=== PATIENT | female | born 1995 | race Caucasian/White ===

== ENCOUNTER 2017-05-20 15:55 | Emergency (ER) | payer BC ==
[~2017-05-20] VITALS: Ht 157.5 cm; Wt 62.6 kg
[2017-05-20] MEDS ORDERED: LATUDA40 MG PO (16:20)
--- NOTE | 2017-05-20 16:20 | Emergency Room Report ---
History of Present Illness Time Seen by MD Luna Presenting Problem in Triage Pt arrived: Presenting Problem: Onset of symptoms date/time:/ or onset unknown for: Treatment Prior to Arrival: DIRECTOR [employer]CH[employer] Provided by: Sepsis Risk Assessment: Temp: B/P: MAP: Pulse: Resp: Recent fever? Clinical Suspician of Infection? Mental Status: Sepsis Risk: Have you (or family members/close friends) recently traveled outside the [place]? If Yes, where/when: Have you had exposure to infectious disease within the past month? TB? Other? Specify: 21 years old white female 6 para 3 a2, last menstrual period was in March 2017, she had 6 positive tests. Today at 1:00 she developed a wide vaginal bleeding followed by lower abdominal cramps. She denies nausea vomiting diarrhea dysuria or hematuria. Fever or chills, has no local doctor then just moved from [facility]. Source patient, RN notes reviewed, family Exam Limitations no limitations ALLERGIES Coded Allergies: diphenhydramine (From BENADRYL) (Intermediate, 05/20/17) Home Medications Reported Medications LURASIDONE HCL (Latuda) 40 MG PO DAILY History Medical History Surgical Hx Previous Surgery? Review of Systems All Other Systems Reviewed and Negative Constitutional no symptoms reported Eyes no symptoms reported ENT no symptoms reported. Respiratory no symptoms reported Cardiovascular no symptoms reported Gastrointestinal no symptoms reported Genitourinary see HPI, abnormal vaginal bleeding. Musculoskeletal no symptoms reported Skin no symptoms reported Psychiatric/Neurological no symptoms reported Physical Exam Vital Signs Vital Signs Date Time Temp Pulse Resp B/P Pulse O2 O2 Flow FiO2 Ox Delivery Rate 05/20 1736 85 20 133/76 99 05/20 1604 98.7 89 20 138/84 100 - WBC >12,000 or <4,000 or 10% bands? 2 or more SIRS Criteria Met? B/P:138/84 MAP:102 Creatinine >2.0? UA output<0.5ml/kg/hr for 2 hrs? Platelet count >100,000? Lactate >2.0mmol/1? INR >1.2 or PTT > than 60 sec? Evidence of Organ Dysfunction? Provider documented clinical suspician of infection? N Sepsis Criteria Count: 1 Sepsis Risk: Low Sepsis Risk General Appearance normal appearance, WD/WN Eye Exam - bilateral eye normal exam, bilateral eye PERRL, bilateral eye EOMI Ear, Nose, Throat hearing grossly normal, normal ENT inspection Neck normal inspection, non-tender, supple, full range of motion Respiratory Status Yes: trachea midline, chest symmetrical, non tender chest. No: respiratory distress. Lung Sounds bilateral: normal breath sounds, lungs clear. Cardiovascular normal exam, regular rate/rhythm, no peripheral edema, no gallop, no JVD, no murmur, no rub, normal peripheral pulses Peripheral Pulses Pulses normal Yes Gastrointestinal normal bowel sounds, normal exam, non tender, soft, no organomegaly Back normal inspection, no CVA tenderness, no vertebral tenderness Extremities non-tender, normal range of motion, normal inspection Pelvic normal external exam, normal internal exam, vv wnl. cx closed uterus enlaged and non tyender. 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 No Results/Orders Laboratory Tests 05/20/17 1635: Urine Color YELLOW, Urine Appearance CLEAR, Urine pH 6.0, Ur Specific Elsa 1.020, Urine Protein NEGATIVE, Urine Ketones NEGATIVE, Urine Blood NEGATIVE, Urine Nitrate NEGATIVE, Urine Bilirubin NEGATIVE, Urine Urobilinogen 0.2, Ur Leukocyte Esterase NEGATIVE, Urine RBC OCC, Urine WBC OCC, Ur Squamous Epith Cells 10-20, Urine Bacteria 1+, Urine Mucus 2+, Urine Glucose NEGATIVE 05/20/17 1630: Sodium 137, Potassium 3.2 L, Chloride 102, Carbon Dioxide 24, BUN 10, Creatinine 0.6, Estimated Creat Clear 148, Estimated GFR (MDRD) 127, Glucose 109 H, Calcium 8.9, Total Bilirubin 0.4, AST 15, ALT 16, Alkaline Phosphatase 54, Total Protein 7.8, Albumin 4.0, Globulin 3.8 H, Albumin/Globulin Ratio 1.1, WBC 8.9, RBC 5.02, Hgb 13.9, Hct 42.9, MCV 85.5, RDW 13.6, Plt Count 236, MPV 7.8, Gran % 66.3, Gran # 5.9, Lymphocytes % 29.1, Monocytes % 3.6, Eosinophils % 0.8, Basophils % 0.2, Lymphocytes # 2.6, Monocytes # 0.3, Eosinophils # 0.1, Basophils # 0.0, PUBS MCHC 32.4, MCH 27.7, Miscellaneous Test NEGATIVE Current Medication Orders Sig/Caity Start time Last Medication Dose Route Stop Time Status Admin Sodium Chloride 10 ML PRN PRN 05/20 1645 AC IV 05/21 1633 Sodium Chloride 1,000 ML .STK-MED ONE 05/20 1631 DC IV Sodium Chloride 1,000 ML .Q1H1M 05/20 1630 DC 05/20 IV 05/20 1730 1634 Sodium Chloride 10 ML PRN PRN 05/20 1630 AC IV 05/21 1622 Orders Procedure Date/time Status RHOGAM SCREEN 05/20 1745 Active IV SALINE LOCK 05/20 1633 Active URINALYSIS/COMPLETE 05/20 162 Complete RH BLOOD TYPE 05/20 1622 Complete CBC WITH AUTO DIFF 05/20 1622 Complete CHEM 12 PROFILE 05/20 1622 Complete US TRANSVAGINAL PREG 05/20 1617 Active Departure Departure Time of Disposition 1619 Disposition DC Home or Self Care(routine) Clinical Impression Primary Impression: Threatened in first trimester Secondary Impressions: History of recurrent , currently in first trimester Condition STABLE Referrals Talon Roque MD Additional Instructions THE PATIENT REMAINED STABLE WITH NO MORE VAGINAL BLEEDING.her Rh was negative and i ordered her rhogam to be given in the ed. VERBAL REPORT OF US BY LOGGING WORKER: THE PATIETNIS MAX 6 WEEKS , NO FHT, BILATERAL BLOOD FLOW TO THE ADENXAE. I DISCUSSED WITH DR ROQUE WHO RECOMMENDED RHOGAM, BED REST, NO SEX OR VAGINAL DOUCHES TO CALL IN AM TO BE SEEN IN THE OFFICE TOMORROW. RETURN TO THE ED IF NEEDED. DR. BLACK Discharge Counseling Counseled pt/family regarding diagnosis, test results, medications/RX, home care, follow up needs Prescriptions Current Visit Scripts Pnv No.95/Ferrous Fum/Folic AC ( Multivitamin Tablet) 1 EACH PO DAILY #90 TAB Ref 3 ED Critical Care Critical Care No If Critical Care minutes are documented, the time involved in the performance of seperately reportable procedures was not counted toward critical care time documented. I directly delivered medical care to this critically ill and/or injured patient. Timely evaluation and treatment was necessary to address the significant organ system(s) dysfunction present in this patient. at 1814
[2017-05-20 16:37] LABS: HEMOGLOBIN 13.9 g/dL (12.2-16.2); LYMPH # 2.6 K/mm3 (0.7-4.5); LYMPH % 29.1 % (10-50.0)
[2017-05-20 16:42] LABS: URINE BILIRUBIN - DIPSTICK NEGATIVE (NEG); URINE BLOOD NEGATIVE (NEG)
[2017-05-20] MEDS ORDERED: PRENATAL MULTI1 EAC5 PO (17:53)
[2017-05-20 19:09] LABS: ABO BLOOD TYPE A; RH BLOOD TYPE NEGATIVE
[2017-05-20 19:21] LABS: RHOGAM LOT # RHOGAM INFORMATION
[2017-05-20 19:32] LABS: RHOGAM RHOGAM RELEASE
--- NOTE | 2017-05-20 20:04 | RADIOLOGY REPORT PS360 ---
US TRANSVAGINAL PREG HISTORY: EARLY BLEEDING Patient Age: 21 years: Female Ordering Physician: Willie Hayward MD TECHNIQUE: Transvaginal pelvic ultrasound COMPARISON :None FINDINGS There is a small intrauterine gestational sac evident. , With yolk sac seen. No pole is identified. No cardiac activity this can be identified as it yet The mean sac size 0.9 cm = less than 5 week ultrasound age. Would certainly anticipate seeing a a pole after 5 weeks . Consider correlation with beta hCG... & consider follow-up study in one to 2 weeks Right ovary 4 cm 2.6 x 2.6 cm Left ovary 2.4 x 1.65 x 1.5 cm. Ovaries appear satisfactory bilaterally with good flow.. Scattered small follicles bilaterally. No fluid in cul-de-sac. IMPRESSION: Intrauterine gestational sac 8-9 mm size. Consistent with less than 5 week sac No pole is evident as of yet but it could be be too early Consider correlation baseline beta-hCG baseline, with follow-up to better determine status of this early if bleeding persists.
[2017-05-20 20:28] VITALS: BP 132/78
--- OUTSIDE RECORDS SUMMARY | 2017-05-20 22:43 | External Medical Summary Rpt ---
Author Author , IRENE Ortiz IRENE Address Unknown Phone [email or web address] Care Team Providers Care Vending Machine Operator Name Role Phone MONCADA HECTOR, MONCADA HECTOR Unavailable Unavailable MONCADA HECTOR, MONCADA HECTOR Unavailable Unavailable SINCLAIR DON, SINCLAIR DON Unavailable Unavailable GONZALEZ AGUILA, Unavailable Unavailable GONZALEZ AGUILA [facility] Unavailable Unavailable PHYSICIANS, [facility] Unavailable Unavailable [facility], Unavailable [facility]available [facility] CAREY ISIDRO, CAREY Unavailable Unavailable ISIDRO CAREY MAR, CAREY Unavailable Unavailable MAR DOWNTON LIS, DOWNTON Unavailable Unavailable LIS TERESA DEB, TERESA Unavailable Unavailable DEB URENA ALL, URENA Unavailable Unavailable ALL GANSHIRT AGUILA, Unavailable Unavailable GANSHIRT AGUILA HARTADRIEL CESPEDES, ELIO Unavailable Unavailable RUBINA HEEB CHR, HEEB CHR Unavailable Unavailable INDEPENDENT Unavailable Unavailable ANESTHESIOLOGIST, INDEPENDENT ANESTHESIOLOGIST KITE JOSE E, KITE JOSE E Unavailable Unavailable OLY SIVAN, OLY SIVAN Unavailable Unavailable LAMBERS DON, LAMBERS Unavailable Unavailable DON LEAL VJ, Unavailable Unavailable LEAL VJ VALLE ISIDRO, VALLE Unavailable Unavailable ISIDRO VALLE ISIDRO, VALLE Unavailable Unavailable ISIDRO BUCKNER, BUCKNER Unavailable Unavailable ARENAS JR FRANCO, ARENAS Unavailable Unavailable JR FRANCO NORA VJ, ONRA Unavailable Unavailable [facility] Unavailable Unavailable LLC, [facility] Unavailable Unavailable LLC, [facility] ABEBA STORY, Unavailable Unavailable ABEBA STORY THEE MAR, THEE Unavailable Unavailable MAR THEE MAR, THEE Unavailable Unavailable MAR DYLAN SARKARMAN Unavailable Unavailable JULIANA HERNANDEZ VJ, HERNANDEZ VJ Unavailable Unavailable HERNANDEZ ALEKSANDAR, HERNANDEZ ALEKSANADR Unavailable Unavailable [facility], Unavailable Unavailable [facility] Unavailable Unavailable FIBERLINE SUPERVISOR ST, [facility] FIBERLINE SUPERVISOR [facility] Unavailable Unavailable [facility] Unavailable Unavailable [place], [facility], Unavailable Unavailable [facility] DEUCE SCHWARZ, Unavailable Unavailable STANFORTH KARISHMA STEINKAMP HECTOR, Unavailable Unavailable STEINKAMP HECTOR STERNEBERG HECTOR, Unavailable Unavailable STERNEBERG HECTOR [email or web address] W, [employer], Unavailable Unavailable [email or web address] [facility], [employer], Unavailable Unavailable [email or web address] [facility] Unavailable Unavailable ME, [facility] KATYA SCO, KATYA SCO Unavailable Unavailable VON HOENE AMA, VON Unavailable Unavailable HOENE AMA DERRICK AMALIA, DERRICK Unavailable Unavailable AMALIA Purpose Continuity of Care Document - 12-25-2011 through 2016 Problems Code Diagnosis DOS Provider Status N912 AMENORRHEA 03-23-2016 UNSPECIFIED [facility] CTR FIBERLINE SUPERVISOR ST D63727 ENCOUNTER 03-23-2016 ROUTINE RONA CHECKING IU MED CTR FIBERLINE SUPERVISOR CONTRACEPT ST DEVICE W49797 ENCOUNTER 03-23-2016 REMOVAL [facility] INTRAUTERIN MED CTR FIBERLINE SUPERVISOR E ST CONTRACEPT DEVICE Z0000 ENCOUNTER 01-19-2016 GEN ADULT [facility] MED EXAM PHYSICIANS W/O ABNORMAL FIND Z975 PRESENCE OF 01-19-2016 [facility] INTRAUTERIN PHYSICIANS E CONTRACEPTI VE DEVICE R079 CHEST PAIN 01-03-2016 UNSPECIFIED [facility] MED CTR FIBERLINE SUPERVISOR ST D77692 OTHER LONG 01-03-2016 TERM [facility] CURRENT MED CTR FIBERLINE SUPERVISOR DRUG ST THERAPY Z8249 FAMILY HX 01-03-2016 ISCHEMIC RONA HRT DZ OTH MED CTR FIBERLINE SUPERVISOR DZ CIRC ST SYSTEM S92587 PERSONAL 01-03-2016 HISTORY OF [facility] NICOTINE MED CTR FIBERLINE SUPERVISOR DEPENDENCE ST N921 EXCESS & 11-25-2015 FREQUENT RONA MENSTRUATIO PHYSICIANS N W/IRREGULAR CYCLE X02392 ENCOUNTER 11-25-2015 ST. INITIAL RONA PRESCRIPTIO GRACE N INJECT CONTRACEPT Z3009 ENCOUNTER 11-22-2015 . OT GENERAL RONA GRACE TRACTOR OPERATOR BATTERY&ADV ICE CONTRACEPT O8612 ENDOMETRITI 11-13-2015 S FOLLOWING RONA DELIVERY PHYSICIANS Z3A39 39 WEEKS 11-13-2015 GESTATION [facility] OF PHYSICIANS A419 SEPSIS 11-12-2015 ST. UNSPECIFIED RONA ORGANISM GRACE D649 ANEMIA 11-12-2015 ST. UNSPECIFIED RONA GRACE N898 OTHER 11-12-2015 ST. SPECIFIED RONA NONINFLAMMA GRACE TORY DISORDERS VAGINA O85 PUERPERAL 11-12-2015 ST. SEPSIS RONA GRACE O9081 ANEMIA OF 11-12-2015 ST. THE RONA PUERPERIUM GRACE O9122 NONPURULENT 11-12-2015 ST. MASTITIS RONA ASSOCIATED GRACE W/PUERPERIU M R69 ILLNESS 11-12-2015 THEE MAR UNSPECIFIED Z392 ENCOUNTER 11-06-2015 ST FOR ROUTINE [facility] CTR FIBERLINE SUPERVISOR FOLLOW-UP ST Z391 ENCNTR FOR 11-04-2015 [facility] LACTATING MOTHER O80 ENCOUNTER 11-02-2015 FOR [facility] FULL-TERM PHYSICIANS UNCOMPLICAT ED DELIVERY Z370 SINGLE LIVE 11-02-2015 RONA PHYSICIANS Z3483 ENC 11-01-2015 ST SUPERVISION RONA OT NORMAL PHYSICIANS 3 TRIMESTER D18451 SUP PREG 10-25-2015 ST W/OTH POOR [facility] REPRODUCTIV MED CTR FIBERLINE SUPERVISOR E/OB HX ST THIRD TRI G98116 OTHER SPEC 10-25-2015 ST [facility] RELATED PHYSICIANS COND 3RD TRIMESTER [id number] MATERNAL 10-25-2015 CARE ANTI-D RONA ANTIBODIES PHYSICIANS THIRD TRI NA/UNS O4700 FALSE LABOR 10-25-2015 ST BEFORE 37 RONA CMPLETE PHYSICIANS WEEKS GEST UNS TRI O471 FALSE LABOR 10-25-2015 ST AT/AFTER RONA 37 PHYSICIANS COMPLETED WEEKS GEST R443 HALLUCINATI 10-25-2015 ST ONS RONA UNSPECIFIED PHYSICIANS R51 HEADACHE 10-25-2015 RONA PHYSICIANS Z36 ENCOUNTER 10-25-2015 FOR [facility] MED CTR FIBERLINE SUPERVISOR SCREENING ST OF MOTHER Z3A37 37 WEEKS 10-25-2015 ST GESTATION RONA OF PHYSICIANS Z3A38 38 WEEKS 10-25-2015 ST GESTATION RONA OF MED CTR FIBERLINE SUPERVISOR ST O9989 OTH DZ & 10-22-2015 ST COND COMP RONA PREG MED CTR FIBERLINE SUPERVISOR CHILDBIRTH ST PUERPERIUM O343993 DECREASED 10-18-2015 ST R[facility] MOVEMENTS MED CTR FIBERLINE SUPERVISOR THIRD ST TRIMESTER NA/UNS Z3A36 36 WEEKS 10-18-2015 ST GESTATION RONA OF MED CTR FIBERLINE SUPERVISOR ST R300 DYSURIA 09-27-2015 ST RONA PHYSICIANS Z3A33 33 WEEKS 09-27-2015 ST GESTATION RONA OF PHYSICIANS B3749 OTHER 09-19-2015 ST UROGENITAL RONA CANDIDIASIS MED CTR FIBERLINE SUPERVISOR ST N939 ABNORMAL 09-19-2015 ST UTERINE & RONA VAGINAL MED CTR FIBERLINE SUPERVISOR BLEEDING ST UNSPECIFIED O4703 FALSE LABOR 09-19-2015 ST BEFORE 37 RONA CMPLETE MED CTR FIBERLINE SUPERVISOR WEEKS GEST ST 3RD TRI H05602 OTH 09-19-2015 ST MATERNAL RONA INF & MED CTR FIBERLINE SUPERVISOR PARASIT DZ ST COMP PREG 3RD TRI B373 CANDIDIASIS 09-12-2015 ST OF VULVA RONA AND VAGINA PHYSICIANS Z3A31 31 WEEKS 09-12-2015 ST GESTATION RONA OF PHYSICIANS Z0371 ENCOUNTER 09-07-2015 ST SUSP PROB RONA AMNIOTIC PHYSICIANS CAV MEMB RULED OUT O0992 SUPERVISION 08-25-2015 ST. HIGH RISK RONA PREG UNS GRACE SECOND TRIMESTER Z3A00 WEEKS OF 08-25-2015 ST. GESTATION RONA OF GRACE NOT SPECIFIED Z3A29 29 WEEKS 08-25-2015 ST GESTATION RONA OF PHYSICIANS D81350 08-22-2015 [facility] LABR >24 HRS FLW RUPT 3RD TRI Z3A28 28 WEEKS 08-22-2015 [facility] OF O6003 08-20-2015 ST LABOR RONA WITHOUT MED CTR FIBERLINE SUPERVISOR DELIVERY ST THIRD TRIMESTER Z86298 OTHER SPEC 08-19-2015 ST R[facility] RELATED MED CTR FIBERLINE SUPERVISOR COND UNS ST TRIMESTER [id number] MATERNAL 08-17-2015 CARE ANTI-D RONA ANTIBODIES MED CTR FIBERLINE SUPERVISOR [address]ND TRI [address] NA/UNS R440 AUDITORY 07-28-2015 ST HALLUCINATI RONA ONS PHYSICIANS R441 VISUAL 07-28-2015 ST HALLUCINATI RONA ONS PHYSICIANS Z3482 ENC 07-28-2015 ST SUPERVISION RONA OTH NORMAL PHYSICIANS 2 TRIMESTER Z3A25 25 WEEKS 07-28-2015 ST GESTATION RONA OF PHYSICIANS V221 SUPERVISION 06-29-2015 ST OF OTHER RONA NORMAL PHYSICIANS V232 06-29-2015 ST WITH RONA HISTORY OF MED CTR FIBERLINE SUPERVISOR ST V220 SUPERVISION 06-08-2015 ST OF NORMAL RONA FIRST PHYSICIANS 08875 OTHER 06-07-2015 ST SPECIFED RONA COMPLICATIO MED CTR FIBERLINE SUPERVISOR N ST ANTEPARTUM 80298 FEVER 06-07-2015 ST UNSPECIFIED RONA MED CTR FIBERLINE SUPER[place]OR ST 58093 UNS 06-03-2015 ST ABNORM MGMT RONA MOTH PHYSICIANS ANTPRTM COND/COMP 45134 MILD 06-02-2015 ST HYPEREMESIS RONA GRAVIDARUM PHYSICIANS UNSPEC EPIS CARE 68917 MILD 06-02-2015 ST HYPEREMESIS RONA GRAVIDARUM MED CTR FIBERLINE SUPERVISOR ANTEPARTUM ST V2889 OTHER 06-02-2015 ST SPECIFIED RONA MED CTR FIBERLINE SUPERVISOR SCREENING [place] 77440 UNSPECIFIED 05-02-2015 ST ANTEPARTUM RONA HEMORRHAGE MED CTR FIBERLINE SUPERVISOR ANTEPARTUM ST V1582 PERS HX 05-02-2015 ST TOBACCO USE RONA PRESENTING MED CTR FIBERLINE SUPERVISOR HAZARDS ST [facility] 1129 CANDIDIASIS 04-27-2015 ST OF RONA UNSPECIFIED PHYSICIANS SITE 462 ACUTE 04-27-2015 ST PHARYNGITIS RONA PHYSICIANS 463 ACUTE 04-27-2015 ST TONSILLITIS RONA PHYSICIANS 7881 DYSURIA 04-27-2015 ST RONA PHYSICIANS V222 04-27-2015 ST STATE, RONA INCIDENTAL PHYSICIANS 6235 LEUKORRHEA 03-30-2015 ST NOT RONA SPECIFIED PHYSICIANS INFECTIVE V7242 03-14-2015 ST EXAMINATION RONA OR TEST MED CTR FIBERLINE SUPERVISOR POSITIVE ST RESULT 6259 UNSPEC 03-12-2015 [facility]ANS W/FEMALE GENITAL ORGANS 52367 OTH 03-06-2015 [facility] VENEREAL DISEASE ANTPRTM COND/COMPL 0549 HERPES 02-28-2015 [facility] WITHOUT PHYSICIANS MENTION OF COMPLICATIO N 6160 CERVICITIS 02-28-2015 [facility] AND EMERGENCY [place] 83430 GENERALIZED 02-23-2015 ST ANXIETY RONA DISORDER PHYSICIANS 62536 UNSPEC 02-08-2015 ST SPONTANEOUS RONA AB WITHOUT PHYSICIANS MENTION COMP 62131 UNSPEC 02-01-2015 [facility] SPONT AB [facility]ERGENC[facility] COMP PHYSICIANS GENITAL TRACT&PELV INF 20959 COMPLETE 01-24-2015 ST. SPONTANEOUS RONA AB COMP GRACE DELAY/EXCES S HEMORR 79993 RHESUS 01-24-2015 ST. ISOIMMUN RONA AFFCT MGMT GRACE MOTH ANTPRTM COND 6260 ABSENCE OF 01-11-2015 ST MENSTRUATIO RONA N MED CTR FIBERLINE SUPERVISOR ST V1589 OTH SPEC 01-07-2015 ST PERS HX RONA PRESENTING MED CTR FIBERLINE SUPERVISOR HAZARDS ST [facility] OTH 5990 URINARY 12-29-2014 TRACT [facility] INFECTION PHYSICIANS SITE NOT SPECIFIED 35505 HEMATURIA 12-29-2014 ST UNSPECIFIED [place] [facility] V741 SCREENING 11-04-2014 EXAMINATION [place] FOR PHYSICIANS PULMONARY TUBERCULOSI S 5589 OTH&UNSPEC 10-26-2014 . NONINFECTIO [facility] BELINDA GASTROENTER ITIS&COLITI S 21457 DIARRHEA 10-26-2014 ST. 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 61388 REFRACTIVE 09-28-2014 VALLE ISIDRO AMBLYOPIA 650 NORMAL 09-02-2014 INDEPENDENT DELIVERY ANESTHESIOL OGIST 90140 DECR 09-02-2014 ST MOVMNTS RONA MGMT MOTH MED CTR ANTPRTM COND/COMP 2859 UNSPECIFIED 09-01-2014 ST ANEMIA [facility] MED CTR FIBERLINE SUPERVISOR ST 86307 MATERNAL 09-01-2014 ST ANEMIA RONA W/DELIVERY MED CTR FIBERLINE SUPERVISOR W/CURRENT ST PPC 10556 DECR 09-01-2014 ST MOVEMENTS RONA AFFECT MGMT MED CTR FIBERLINE SUPERVISOR [place] [address]186 PREMATURE 09-01-2014 ST RUPTURE RONA MEMB PG PHYSICIANS UNSPEC EPIS CARE 26037 PREMATURE 09-01-2014 ST RUPTURE RONA MEMBRANES MED CTR FIBERLINE SUPERVISOR ST DELIVERED 12813 ABN FETL 09-01-2014 ST HRT RONA RATE/RHYTHM MED CTR FIBERLINE SUPERVISOR DELIV W/WO ST ANTPRTM COND 19284 HIGH 09-01-2014 ST VAGINAL [facility] LACERATION MED CTR FIBERLINE SUPERVISOR WITH ST DELIVERY 7823 EDEMA 09-01-2014 ST RONA MED CTR FIBERLINE SUPERVISOR ST V270 OUTCOME OF 09-01-2014 ST DELIVERY RONA SINGLE PHYSICIANS LIVEBORN 34106 OTHER 08-25-2014 ST THREATENED RONA LABOR, PHYSICIANS ANTEPARTUM 97637 RHESUS 08-25-2014 ST ISOIMMUNIZA RONA TION UNSPEC PHYSICIANS EPIS CARE PG V2389 SUPERVISION 08-25-2014 ST OF OTHER RONA HIGH-RISK PHYSICIANS 59393 OTH CURRENT 08-16-2014 ST MAT CONDS RONA CLASSIFIABL MED CTR FIBERLINE SUPERVISOR E ELSW ST ANTPRTM 1121 CANDIDIASIS 07-18-2014 ST OF VULVA RONA AND VAGINA MED CTR FIBERLINE SUPER[place]OR ST 36929 THREATENED 07-18-2014 ST PREMATURE RONA LABOR MED CTR FIBERLINE SUPERVISOR ANTEPARTUM ST 01002 INFECTIONS 07-18-2014 ST OF RONA GENITOURINA MED CTR FIBERLINE SUPERVISOR RY TRACT ST ANTEPARTUM V154 PERS HX 04-13-2014 [facility] AL TRAUMA PRS [facility] 33422 UNSPECIFIED 12-16-2013 ST VAGINITIS RONA AND PHYSICIANS VULVOVAGINI TIS V289 UNSPECIFIED 02-21-2012 ST RONA SCREENING MED CTR FIBERLINE SUPERVISOR ST 64294 THREATENED 01-29-2012 ST PREMATURE RNOA LABOR PHYSICIANS UNSPEC EPIS CARE 11687 PREMATURE 12-25-2011 [facility] MATERNAL OF [place] ANTEPARTUM B96.89 Other specified bacterial agents as the cause of diseases classified elsewhere E66.3 Overweight F41.9 Anxiety disorder, unspecified K04.7 Periapical abscess without sinus N30.91 Cystitis, unspecified with hematuria N71.9 Inflammator y disease of uterus, unspecified N76.0 Acute vaginitis N89.8 Other specified noninflamma tory disorders of vagina N92.6 Irregular menstruatio n, unspecified O20.0 Threatened O46.91 Antepartum hemorrhage, unspecified , first trimester R10.2 Pelvic and perineal pain R11.0 Nausea R40.20 Unspecified coma R40.4 Transient alteration of awareness R63.5 Abnormal weight gain T88.7XXA Unspecified adverse effect of drug or medicament, initial encounter Z11.3 Encounter for screening for infections with a predominant ly sexual mode of transmissio n Z28.3 Underimmuni zation status Z71.1 Person with feared health complaint in whom no diagnosis is made Procedures Procedure DOS Code [place] Per[place] [address] SINCLAIR DON SURG 6 [facility] PATHOLOGY MED CTR GROSS EXAMINATI ON ONLY GONADOTRO [address] PIN 6 RONA RONA CHORIONIC GRACE GRACE QUANTITAT RONNIE LEVONORGE J7298 ST URENA STREL-RLS 6 RONA ALL INTRAUTER PHYSICIAN INE MOOKIE S SYS [address] ROUTINE 6 RONA RONA ECG MED CTR MED CTR W/LEAST FIBERLINE SUPERVISOR ST FIBERLINE SUPERVISOR ST 12 LDS TRCG ONLY W/O I&R BASIC [address] METABOLIC 6 RONA RONA PANEL MED CTR MED CTR CALCIUM FIBERLINE SUPERVISOR ST FIBERLINE SUPERVISOR ST TOTAL COLLECTIO [address] N VENOUS 6 RONA RONA BLOOD MED CTR MED CTR VENIPUNCT FIBERLINE SUPERVISOR ST FIBERLINE SUPERVISOR ST URE RADIOLOGI [address] C EXAM 6 RONA RONA CHEST 2 MED CTR MED CTR VIEWS FIBERLINE SUPERVISOR ST FIBERLINE SUPERVISOR ST FRONTAL&L ATERAL ECG 78950 ST HEEB CHR ROUTINE 6 RONA ECG MED CTR W/LEAST 12 LDS [place] [address] TROPONIN 6 RONA RONA QUANTITAT MED CTR MED CTR RONNIE FIBERLINE SUPERVISOR ST FIBERLINE SUPERVISOR ST BLOOD [address] COUNT 6 RONA RONA COMPLETE MED CTR MED CTR AUTO&AUTO FIBERLINE SUPERVISOR ST FIBERLINE SUPERVISOR ST DIFRNTL WBC COLLECTIO [address] N VENOUS 6 RONA RONA BLOOD GRACE GRACE VENIPUNCT URE THERAPEUT 75456 ST CAREY IC 6 RONA MAR PROPHYLAC TIC/DX PHYSICIAN INJECTION S SUBQ/IM GONADOTRO [address] PIN 6 RONA RONA CHORIONIC GRACE GRACE QUANTITAT RONNIE GONADOTRO [address] PIN 6 RONA RONA CHORIONIC GRACE GRACE QUANTITAT RONNIE COLLECTIO [address] N VENOUS 6 RONA RONA BLOOD GRACE GRACE VENIPUNCT URE INITIAL 94406 [facility] 6 RONA SHEEHAN CARE/DAY 50 PHYSICIAN MINUTES S RADIOLOGI 33877 THEE THEE C EXAM 6 Dec CHEST 2 VIEWS FRONTAL&L ATERAL CRITICAL 71600 [facility] 6 EMERGENCY ILL/INJUR ED PHYSICIAN PATIENT S INIT 30-[address] OUTPATIEN 6 RONA RONA T CLIN MED CTR MED CTR VISIT [facility] ST FIBERLINE SUPERVISOR ST ASSESS & MGMT PT BREAST E0603 PEDIATRIC PEDIATRIC PUMP 6 PRODUCTS [facility] ANY TYPE VAGINAL [address]553 ST GANSHIRT DELIVERY 6 RONA AGUILA ONLY W/POSTPAR PHYSICIAN FERCHO CARE S NEURAXIAL 94771 ANESTHESI KITE JOSE E LABOR 6 A GROUP ANALG/ANE PRACTICE S PLND VAGINAL DELIVERY [address] NONSTRESS 6 RONA RONA TEST MED CTR MED CTR [facility] G[address] [facility] ST OUTPATIEN 6 RONA RONA T CLIN MED CTR MED CTR VISIT [facility] ST FIBERLINE SUPERVISOR ST ASSESS & MGMT PT HOSPITAL G0463 ST ST OUTPATIEN 6 RONA RONA T CLIN MED CTR MED CTR VISIT [facility] ASSESS & [place] [address] NONSTRESS 6 RONA RONA TEST MED CTR MED CTR FIBERLINE SUPERVISOR ST FIB[address] NONSTRESS 6 RONA RONA TEST MED CTR MED [facility] [facility] ST OUTPATIEN 6 RONA RONA T CLIN MED CTR MED CTR VISIT [facility] ST FIBERLINE SUPERVISOR ST ASSESS & MGMT PT SBSQ 96493 ST GANSHIRT OBSERVATI 6 RONA AGUILA ON CARE/DAY PHYSICIAN [address] URENA NONSTRESS 6 RONA ALL TEST PHYSICIAN S [address] NONSTRESS 6 RONA RONA TEST MED CTR MED [facility] G04[address] [facility] ST OUTPATIEN 6 RONA RONA T CLIN MED CTR MED CTR VISIT FIBERLINE SUPERVISOR ST FIBERLINE SUPER[place]OR ST ASSESS & [place] [address] BIOPHYSIC 6 RONA RONA AL MED CTR MED CTR PROFILE FIBERLINE SUPERVISOR ST FIBERLINE SUPERVISOR ST W/O NON-STRES S TESTING IADNA [address] STREPTOCO 5 RONA RONA CCUS MED CTR MED CTR GROUP B FIBERLINE SUPERVISOR ST FIBERLINE SUPERVISOR ST AMPLIFIED PROBE TQ IADNA [address] NEISSERIA 5 RONA RONA MED CTR MED CTR GONORRHOE FIBERLINE SUPERVISOR ST FIBERLINE SUPERVISOR ST AE AMPLIFIED PROBE TQ IADNA [address] CHLAMYDIA 5 RONA RONA MED CTR MED CTR TRACHOMAT FIBERLINE SUPERVISOR ST FIBERLINE SUPERVISOR ST IS AMPLIFIED PROBE TQ CULTURE [address] BACTERIAL 5 RONA RONA MED CTR MED CTR QUANTTATI FIBERLINE SUPERVISOR ST FIBERLINE SUPERVISOR ST VE COLONY COUNT [facility] G0463 ST ST OUTPATIEN 5 RONA RONA T CLIN MED CTR MED CTR VISIT FIBERLINE SUPERVISOR ST FIBERLINE [place] ST ASSESS & [place] [address] NONSTRESS 5 RONA RONA TEST MED CTR MED CTR FIBERLINE SUPERVISOR ST [place] [address] NONSTRESS 5 RONA ROAN TEST MED CTR MED CTR FIBERLINE SUPERVISOR ST FIBERLINE SUPERVISOR ST HOSPITAL G0463 ST ST OUTPATIEN 5 RONA RONA T CLIN MED CTR MED CTR VISIT FIBERLINE SUPERVISOR ST FIBERLINE SUPERVISOR ST ASSESS & MGMT PT GLUCOSE [address] POST 5 RONA RONA GLUCOSE GRACE GRACE DOSE COLLECTIO [address] N VENOUS 5 RONA RONA [place] [address] 5 RONA RONA UTERUS MED CTR MED CTR LIMITED FIBERLINE SUPERVISOR ST FIBERLINE SUPERVISOR ST 1/> FETUSES FERN TEST Q0114 ST OLY SIVAN 5 RONA PHYSICIAN S THERAPEUT [address] IC 5 RONA RONA PROPHYLAC MED CTR MED CTR TIC/DX FIBERLINE SUPERVISOR ST FIBERLINE SUPERVISOR ST INJECTION SUBQ/IM SBSQ 75960 [facility] 5 RONA CARE/DAY 25 PHYSICIAN MINUTES S [address] OLY SIVAN NONSTRESS 5 RONA TEST PHYSICIAN S [address] ST [place] NONSTRESS 5 RONA AMA TEST PHYSICIAN S ANTIBODY [address] TREPONEMA 5 RONA RONA PALLIDUM MED CTR MED CTR FIBERLINE SUPERVISOR ST FIBERLINE SUPERVISOR ST COMPATIBI [address] LITY EACH 5 RONA RONA UNIT MED CTR MED CTR ANTIGLOBU FIBERLINE SUPERVISOR [place] [address] INFUSION 5 RONA RONA HYDRATION MED CTR MED CTR EACH FIBERLINE SUPERVISOR ST FIBER[place] [address] INFUSION 5 RONA RONA THERAPY/P MED CTR MED CTR ROPHYLAXI FIBERLINE SUPERVISOR ST FIBERLINE SUPERVISOR ST S /DX 1ST TO [address] [place] OBSERVATI 5 RONA AMA ON CARE/DAY PHYSICIAN 30 S MINUTES [facility]OSPITAL G0463 [facility] ST OUTPATIEN 5 RONA RONA T CLIN MED CTR MED CTR VISIT FIBERLINE SUPERVISOR ST FIBERLINE SUPERVISOR ST ASSESS & MGMT PT US PREG [address] ST UTERUS 5 RONA RONA REAL TIME MED CTR MED CTR W/IMAGE FIBERLINE SUPERVISOR ST FIBERLINE SUPERVISOR ST DCMTN TRANSVAG THERAPEUT [address] IC 5 RONA RONA PROPHYLAC MED CTR MED CTR TIC/DX FIBERLINE SUPERVISOR ST FIBERLINE SUPER[place] ST INJECTION SUBQ/[place] [address] 5 RONA RONA UTERUS MED CTR MED CTR LIMITED FIBERLINE SUPERVISOR ST FIBERLINE SUPERVISOR ST 1/> FETUSES HOSPITAL G[address] ST ST OUTPATIEN 5 RONA RONA T CLIN MED CTR MED CTR VISIT FIBERLINE SUPERVISOR ST FIBERLINE SUPERVISOR ST ASSESS & MGMT PT IADNA [address] NEISSERIA 5 RONA RONA MED CTR MED CTR GONORRHOE FIBERLINE SUPERVISOR ST FIBERLINE SUPERVISOR ST AE AMPLIFIED PROBE TQ IADNA [address] CHLAMYDIA 5 RONA RONA MED CTR MED CTR TRACHOMAT FIBERLINE SUPERVISOR ST FIBERLINE SUPERVISOR ST IS AMPLIFIED PROBE TQ HOSPITAL G0463 ST ST OUTPATIEN 5 RONA RONA T CLIN MED CTR MED CTR VISIT FIBERLINE SUPERVISOR ST FIBERLINE SUPERVISOR ST ASSESS & [place] [address] NONSTRESS 5 RONA RONA TEST MED CTR MED CTR FIBERLINE SUPERVISOR ST FIBERLINE SUPERVISOR ST THERAPEUT [address] IC 5 RONA RONA PROPHYLAC MED CTR MED CTR TIC/DX FIBERLINE SUPERVISOR ST FIBERLINE SUPERVISOR ST INJECTION [place]Q/[place] P[place] [address] UTERUS 5 RONA RONA REAL TIME MED CTR MED CTR W/IMAGE FIBERLINE SUPERVISOR ST FIBERLINE SUPERVISOR ST DCMTN TRANSVAG CRYSTAL 59843 ST URENA ID LIGHT 5 RONA ALL MICROSCOP Y CARI PHYSICIAN TISS/ANY S FLUID THERAPEUT [address] IC 5 RONA RONA PROPHYLAC MED CTR MED CTR TIC/DX FIBERLINE SUPERVISOR ST FIBERLINE SUPERVISOR ST INJECTION SUBQ/[place] IADNA [address] TRICHOMON 5 RONA RONA MED CTR MED CTR VAGINALIS FIBERLINE SUPERVISOR ST FIBERLINE SUPERVISOR ST [place] T[place] [address] UTERUS 5 RONA RONA AFTER 1ST MED CTR MED CTR TRIMEST FIBERLINE SUPERVISOR ST FIBERLINE SUPERVISOR ST 1/ GESTATION IADNA [address] GARDNEREL 5 RONA RONA LA MED CTR MED CTR VAGINALIS FIBERLINE SUPERVISOR ST FIBERLINE SUPERVISOR ST DIRECT PROBE TQ IADNA [address] CHLAMYDIA 5 RONA RONA MED CTR MED CTR TRACHOMAT FIBERLINE SUPERVISOR ST FIBERLINE SUPERVISOR ST IS AMPLIFIED PROBE TQ IADNA [address] NEISSERIA 5 RONA ROAN MED CTR MED CTR GONORRHOE FIBERLINE SUPERVISOR ST FIBERLINE SUPERVISOR ST AE AMPLIFIED PROBE TQ IADNA [address] ST ST JEREL 5 RONA RONA SPECIES MED CTR MED CTR DIRECT FIBERLINE SUPERVISOR ST FIBERLINE SUPERVISOR ST PROBE TQ SBSQ [address]4076 ST GANSHIRT OBSERVATI 5 RONA AGUILA ON CARE/DAY PHYSICIAN 15 S MINUTES INJECTION [id number] [address] 5 RONA RONA ONDANSETR [facility] MED CTR ON HCL FIBERLINE SUPERVISOR ST FIBERLINE SUPERVISOR ST [place] [address] [place] [address] INFUSION 5 RONA RONA HYDRATION [facility] MED [facility] EACH FIBERLINE SUPERVISOR ST FIBERLINE SUPERVISOR ST ADDITIONA L HOUR COMPREHEN [address] ST [address] SIVE 5 RONA [facility] METABOLIC MED [facility] MED [facility] PANEL FIBERLINE SUPERVISOR ST FIBERLINE SUPERVISOR ST URNLS DIP [address] 5 RONA RONA STICK/TAB MED CTR MED CTR LET RGNT FIBERLINE SUPERVISOR ST FIBERLINE SUPERVISOR ST AUTO W/O MICROSCOP Y IADNA [address] TRICHOMON 5 [facility] MED [facility] VAGINALIS FIBERLINE SUPERVISOR ST FIBERLINE SUPERVISOR ST DIRECT PROBE TQ THER [address] PROPH/DX 5 RONA RONA NJX IV MED CTR MED CTR PUSH FIBERLINE SUPERVISOR ST FIBERLINE SUPERVISOR ST SINGLE/1S T SBST/DRUG IADNA [address] JEREL 5 RONA RONA SPECIES MED CTR MED CTR DIRECT FIBERLINE SUPERVISOR ST FIBERLINE SUPERVISOR ST PROBE TQ IADNA [address] NEISSERIA 5 RONA R[facility] MED CTR GONORRHOE FIBERLINE SUPERVISOR ST FIBERLINE SUPERVISOR ST AE AMPLIFIED PROBE TQ IADNA [address] ST ST CHLAMYDIA 5 RONA RONA MED [facility] MED CTR TRACHOMAT FIBERLINE SUPERVISOR ST FIBERLINE SUPERVISOR ST IS AMPLIFIED PROBE TQ IADNA [address] ST [address] GARDNEREL 5 RONA RONA LA MED CTR MED CTR VAGINALIS FIBERLINE SUPERVISOR ST FIBERLINE SUPERVISOR ST DIRECT PROBE TQ BLOOD [address] COUNT 5 RONA RONA COMPLETE MED CTR MED CTR AUTOMATED FIBERLINE SUPERVISOR ST FIBERLINE SUPERVISOR ST RINGERS J7120 ST ST LACTATE 5 RONA RONA INFUSION MED CTR MED CTR UP TO FIBERLINE SUPERVISOR ST FIBERLINE SUPERVISOR ST [address] 5 RONA RONA STREPTOCO [facility] [place] [address] 5 RONA RONA UTERUS 14 MED CTR MED CTR WK FIBERLINE SUPERVISOR ST FIBERLINE SUPERVISOR ST TRANSABDL GESTAT GONADOTRO 15620 [facility] PIN 5 RONA REA CHORIONIC GRACE GRACE QUANTITAT RONNIE COLLECTIO 49931 [facility] N VENOUS 5 RONA [place] [address] [facility] VJ 5 W, LLC UTERUS 14 WK TRANSABDL GESTAT [place] PREG [address]55 RADIOLOGY KATYA SCO UTERUS 5 REAL TIME ASSOCIATE W/IMAGE S OF NOT DCMTN TRANSVAG GONADOTRO 41162 [facility] PIN 5 RONA REA CHORIONIC MED CTR MED CTR FIBERLINE SUPERVISOR [facility] QUANTITAT RONNIE COLLECTIO 71729 [facility] VENOUS 5 RONA CESPEDES BLOOD VENIPUNCT PHYSICIAN URE S COLLECTIO 27844 [facility] VENOUS 5 RONA REA BLOOD BELINDA BELINDA VENIPUNCT URE URNLS DIP 39987 [facility] 5 RONA REA STICK/TAB BELINDA BELINDA LET REAGENT AUTO MICROSCOP Y GONADOTRO 19220 [facility] PIN 5 RONA REA CHORIONIC BELINDA BELINDA QUANTITAT RONNIE ONDANSETR Q0162 [facility] ON 1 MG 5 RONA REA ORL NOT BELINDA BELINDA EXCEED 48 HR DOSE REG IADNA 04695 [facility] NEISSERIA 5 RONA REA BELINDA BELINDA GONORRHOE AE AMPLIFIED PROBE TQ IADNA 10682 [facility] CHLAMYDIA 5 RONA REA BELINDA BELINDA TRACHOMAT IS AMPLIFIED PROBE TQ IAADIADOO 15362 [place] [address] RONA REA TRICHOMON BELINDA BELINDA VAGINALIS US PREG 05060 [facility] UTERUS 5 RONA REA REAL TIME MED CTR MED CTR W/IMAGE FIBERLINE SUPERVISOR [facility] [place] [address] [facility] 5 RONA REA UTERUS 14 MED CTR MED CTR WK FIBERLINE SUPERVISOR ST FIBERLINE SUPERVISOR ST TRANSABDL GESTAT COLLECTIO [address] N VENOUS 5 RONA RONA BLOOD MED CTR MED CTR VENIPUNCT FIBERLINE SUPERVISOR ST FIBERLINE SUPERVISOR ST URE GONADOTRO [address] PIN 5 RONA RONA CHORIONIC MED CTR MED CTR FIBERLINE SUPERVISOR ST FIBERLINE SUPERVISOR ST QUANTITAT RONNIE IADNA [address] TRICHOMON 5 RONA MERCADOTH MED CTR MED CTR VAGINALIS FIBERLINE SUPERVISOR ST FIBERLINE SUPERVISOR ST DIRECT PROBE TQ IADNA [address] GARDNEREL 5 RONA RONA LA MED CTR MED CTR VAGINALIS FIBERLINE SUPERVISOR ST FIBERLINE SUPERVISOR ST DIRECT PROBE TQ SUSCEPTIB [address] LTY STDY 5 RONA RONA ANTIMICRB MED CTR MED CTR IAL FIBERLINE SUPERVISOR ST FIBERLINE SUPERVISOR ST MICRO/AGA R DILUTJ IADNA [address] CHLAMYDIA 5 RONA RONA MED CTR MED CTR TRACHOMAT FIBERLINE SUPERVISOR ST FIBERLINE SUPERVISOR ST IS AMPLIFIED PROBE TQ CUL BACT [address] ST [address] AEROBIC 5 RONA RONA ADDL MED CTR MED CTR METHS FIBERLINE SUPERVISOR ST FIBERLINE SUPERVISOR ST DEFINITIV E EA ISOL CULTURE [address] BACTERIAL 5 RONA RONA MED CTR MED CTR QUANTTATI FIBERLINE SUPERVISOR ST FIBERLINE SUPERVISOR ST VE COLONY COUNT URINE IADNA 84[address] ST ST JEREL 5 RONA RONA SPECIES MED CTR MED CTR DIRECT FIBERLINE SUPERVISOR ST FIBERLINE SUPERVISOR ST PROBE TQ IADNA [address] NEISSERIA 5 RONA RONA MED CTR MED CTR GONORRHOE FIBERLINE SUPERVISOR ST FIBERLINE SUPERVISOR ST AE AMPLIFIED PROBE TQ URINE 55501 ST STERNEBER 5 RONA G HECTOR TEST VISUAL PHYSICIAN COLOR S CMPRSN METHS SKIN TEST 32586 ST STERNEBER 5 RONA G HECTOR TUBERCULO SIS PHYSICIAN INTRADERM S AL IADNA [address] TRICHOMON 4 RONA MERCADOTH MED CTR MED CTR VAGINALIS FIBERLINE SUPERVISOR ST FIBERLINE SUPERVISOR ST DIRECT PROBE TQ IADNA [address] JEREL 4 RONA REA SPECIES MED CTR MED CTR DIRECT FIBERLINE SUPERVISOR ST FIBERLINE SUPERVISOR ST PROBE TQ IADNA [address] ST [address] GARDNEREL 4 RONA REA LA MED CTR MED CTR VAGINALIS FIBERLINE SUPERVISOR ST FIBERLINE SUPERVISOR ST DIRECT PROBE TQ FRAMES V2020 [facility] PURCHASES 4 1 VISN V2103 [facility] PLANO 4 TO+/-4.00 D SPHER 0.12-2.00 D CYL EA SCRATCH V2760 [facility] RESISTANT 4 COATING PER LENS LENS V2784 [facility] POLYCARBO 4 REMI OR EQUAL ANY INDEX PER LENS 1 VISN V2104 [facility] MURRIETA HECTOR PLANO-+/- 4 4.00D SPHER 2.12-4.00 D CYL EA OPHTH 33662 [facility] 4 ISIDRO FEILX XM&EVAL COMPRHNSV ESTAB PT 1/> FITTING 59735 [facility] SPECTACLE 4 ISIDRO FELIX S XCPT [place]HAK[place] [address] OTHER 4 RONA REA CURRENT MED CTR MED CTR OBSTETRIC FIBERLINE SUPERVISOR ST FIBERLINE SUPERVISOR ST LACERATIO N OTHER [address] MANUALLY 4 RONA REA ASSISTED MED CTR MED CTR DELIVERY FIBERLINE SUPERVISOR ST FIBERLINE SUPERVISOR ST OTHER [address] ARTIFICIA 4 RONA REA L RUPTURE MED CTR MED CTR OF FIBERLINE SUPERVISOR ST FIBERLINE SUPERVISOR ST MEMBRANES NEURAXIAL 36271 INDEPENDE STEINKAMP LABOR 4 NT HECTOR ANALG/ANE ANESTHESI S PLND OLOGIST VAGINAL DELIVERY VAGINAL [address]4983 [facility] DELIVERY 4 RONA ROBERSON W/POSTPAR PHYSICIAN [place] [address] [place] LEAL SURG 4 RONA Z[facility]ALA PATHOLOGY MED CTR GROSS&JOSE E ROSCOPIC EXAM [address] NONSTRESS 4 RONA REA TEST PHYSICIAN PHYSICIAN S S CRYSTAL 77404 [facility] ID LIGHT 4 RONA FELIX MICROSCOP Y CARI PHYSICIAN TISS/ANY S FLUID [address] [facility] NONSTRESS 4 RONA MAR TEST PHYSICIAN S [address] NONSTRESS 4 RONA RONA TEST MED CTR MED CTR FIBERLINE SUPERVISOR ST FIBERLINE SUPERVISOR ST IADNA [address] GARDNEREL 4 RONA RONA LA MED CTR MED CTR VAGINALIS FIBERLINE SUPERVISOR ST FIBERLINE SUPERVISOR ST DIRECT PROBE TQ IADNA [address] JEREL 4 RONA RONA SPECIES MED CTR MED CTR DIRECT FIBERLINE SUPERVISOR ST FIBERLINE SUPERVISOR ST PROBE TQ IADNA [address] TRICHOMON 4 RONA RONA MED CTR MED CTR VAGINALIS FIBERLINE SUPERVISOR ST FIBERLINE SUPERVISOR ST DIRECT PROBE TQ INITIAL 98885 ST URENA OBSERVATI 4 RONA ALL ON CARE/DAY PHYSICIAN 30 S MINUTES URNLS DIP [address] 4 RONA RONA STICK/TAB MED CTR MED CTR LET FIBERLINE SUPERVISOR ST FIBERLINE SUPERVISOR ST REAGENT AUTO MICROSCOP Y [address] ST URENA NONSTRESS 4 RONA ALL TEST PHYSICIAN S [address] NONSTRESS 4 RONA RONA TEST MED CTR MED CTR FIBERLINE SUPERVISOR ST FIBERLINE SUPERVISOR ST IADNA [address] GARDNEREL 4 RONA RONA LA MED CTR MED CTR VAGINALIS FIBERLINE SUPERVISOR ST FIBERLINE SUPERVISOR ST DIRECT PROBE TQ IADNA [address] JEREL 4 RONA RONA SPECIES MED CTR MED CTR DIRECT FIBERLINE SUPERVISOR ST FIBERLINE SUPERVISOR ST PROBE TQ IADNA [address] NEISSERIA 4 RONA RONA MED CTR MED CTR GONORRHOE FIBERLINE SUPERVISOR ST FIBERLINE SUPERVISOR ST AE AMPLIFIED PROBE TQ IADNA [address] ST [address] CHLAMYDIA 4 RONA RONA MED CTR MED CTR TRACHOMAT FIBERLINE SUPERVISOR ST FIBERLINE SUPERVISOR ST IS AMPLIFIED PROBE TQ FTL [address] FIBRONECT 4 RONA RONA IN MED CTR MED CTR CERVICOVA FIBERLINE SUPERVISOR ST FIBERLINE SUPERVISOR ST G SECRETION S SEMI-KELECHI IADNA [address] ST [address] TRICHOMON 4 RONA RONA MED CTR MED CTR VAGINALIS FIBERLINE SUPERVISOR ST FIBERLINE SUPERVISOR ST DIRECT PROBE TQ SBSQ [address]574 ST [facility] OBSERVATI 4 RONA AGUILA ON CARE/DAY PHYSICIAN 15 S MINUTES INJECTION J2790 [address] RHO D IG 4 RONA RONA HUMAN MED CTR MED CTR FULL DOSE FIBERLINE SUPERVISOR ST FIBERLINE SUPERVISOR ST [address] JEREL 4 RONA RONA SPECIES MED CTR MED CTR DIRECT FIBERLINE SUPERVISOR ST FIB[place] [address] 4 RONA RONA UTERUS 14 MED CTR MED CTR WK FIBERLINE SUPERVISOR ST FIBERLINE SUPERVISOR ST TRANSABDL GESTAT VAGINAL [address]6795 ST [facility] DELIVERY 2 RONA DEB ONLY W/POSTPAR PHYSICIAN FERCHO CARE S [address] NONSTRESS 2 RONA RONA TEST MED CTR MED CTR FIBERLINE SUPERVIS[address] [place] [address] [facility] NONSTRESS 2 ORNA AGUILA TEST PHYSICIAN S INITIAL 44468 [facility] INPATIENT 2 MATERNAL DON CONSULT ME NEW/ESTAB PT 55 MIN Encounters Encounter Start End Date Code Location Performer Type Date HOSPITAL ST - OTHER 6 6 RONA MED CTR FIBERLINE SUPERVISOR [facility] OUTPAT[facility] MED CTR T FIBERLINE SUPERVISOR ST EMERGENCY 77210 ST 6 6 RONA DEPARTMEN MED CTR T VISIT FIBERLINE SUPERVISOR [facility] - [facility] RONA [facility] ST - 6 6 RONA OUTPATIEN MED CTR T FIBERLINE SUPERVISOR ST OFFICE [address] [facility] OUTPATIEN 6 6 RONA ISIDRO T VISIT 15 PHYSICIAN MINUTES S OFFICE [address] [facility] OUTPATIEN 6 6 RONA AGUILA T VISIT [address] PHYSIC[address] [facility] - 6 6 RONA OUTPATIEN MED CTR T FIBERLINE SUPERVISOR [facility] ST - 6 6 RONA OUTPATIEN MED CTR T FIBERLINE SUPERVISOR [facility] ST - 6 6 RONA OUTPATIEN MED CTR T FIBERLINE SUPERVISOR ST OFFICE 62784 ST [facility] OUTPATIEN 6 6 RONA ALL T VISIT 15 PHYSICIAN MINUTES [facility] ST - 6 6 RONA OUTPATIEN MED CTR T FIBERLINE SUPERVISOR [facility] ST - OTHER 5 5 RONA MED CTR FIBERLINE SUPERVISOR ST OFFICE [address]8639 [facility] OUTPATIEN 5 5 RONA ISIDRO T VISIT 15 PHYSICIAN MINUTES [facility] ST - OTHER 5 5 RONA MED CTR FIBERLINE SUPERVISOR ST OFFICE [address]321 [facility] OUTPATIEN 5 5 RONA ISIDRO T VISIT 15 PHYSICIAN MINUTES [facility] ST - 5 5 RONA OUTPATIEN MED CTR T [facility] ST OFFICE [address] [facility] OUTPATIEN 5 5 RONA AGUILA T VISIT 15 PHYSICIAN MINUTES [facility] ST - 5 5 RONA OUTPATIEN MED CTR T FIBERLINE SUPERVISOR ST OFFICE [address] [facility] OUTPAT[facility]EN 5 5 RONA AGUILA T VISIT 15 PHYSICIAN MINUTES [facility] ST. - 5 5 RONA OUTPATIEN [facility] OFFICE [address] [facility] OUTPATIEN 5 5 RONA AGUILA T VISIT 15 PHYSICIAN MINUTES [facility] ST - 5 5 RONA OUTPATIEN MED CTR T [facility] ST - 5 5 RONA OUTPATIEN MED CTR T FIBERLINE SUPERVISOR OFFICE [address]708 ST [facility] OUTPATIEN 5 5 RONA ALL T VISIT [address] PH[address] [facility] - 5 5 RONA OUTPATIEN MED CTR T FIBERLINE SUPERVISOR [facility] ST - 5 5 RONA OUTPATIEN MED CTR T FIBERLINE SUPERVISOR OFFICE [address] [facility] OUTPATIEN 5 5 RONA AGUILA T VISIT 15 PHYSICIAN MINUTES [facility] ST - 5 5 RONA OUTPATIEN MED CTR T FIBERLINE SUPERVISOR EMERGENCY 41983 [facility] PERDOMO 5 5 EMERGENCY JULIANA DEPARTMEN T VISIT PHYSICIAN [facility] ST - 5 5 RONA OUTPATIEN MED CTR T [facility] OFFICE [address] [facility] OUTPATIEN 5 5 RONA AGUILA T VISIT [address] PHYSIC[address] [facility] - 5 5 RONA OUTPATIEN MED CTR T FIBERLINE SUPERVISOR OFFICE [address]62 ST OUTPATIEN 5 5 RONA T VISIT MED CTR [address] [facility] OFFICE [address] [facility] RONA AGUILA T VISIT [address] PHYSIC[address] [facility] - 5 5 RONA OUTPATIEN MED CTR T FIBERLINE SUPERVISOR ST OFFICE 07996 ST OUTPATIEN 5 5 RONA T VISIT MED CTR [address] MINUTES OFFICE [address]15 [facility] OUTPATIEN 5 5 RONA ISIDRO T VISIT 15 PHYSICIAN MINUTES EMERGENCY 00572 ST 5 5 RONA DEPARTMEN MED CTR T VISIT FIBERLINE SUPERVISOR [facility] ST - 5 5 RONA OUTPATIEN MED CTR T [facility] OFFICE 79314 [facility] RONA JAC T VISIT [address] PHYSIC[address] [facility] - 5 5 RONA OUTPATIEN MED CTR T [facility] EMERGENCY 13100 [place] [facility] 5 5 EMERGENCY N JEZ DEPARTMEN T VISIT PHYSICIAN HIGH/URGE S NT SEVERITY [facility]PITAL ST. - 5 5 RONA OUTPATIEN [facility] T EMERGENCY 76606 LEN[facility] ARENAS JR 5 5 EMERGENCY FRANCO DEPARTMEN T VISIT PHYSICIAN HIGH/URGE S NT SEVERITY OFFICE 99221 [facility] 5 RONA VJ T VISIT 15 PHYSICIAN MINUTES [facility] ST - 5 5 RONA OUTPATIEN MED CTR T [facility] EMERGENCY [address]2943 ST. 5 5 RONA DEPARTMEN BELINDA T VISIT MODERATE SEVERITY HOSPITAL ST. - 5 5 RONA OUTPATIEN BELINDA T EMERGENCY 03517 LEN[facility] HUERTAS 5 5 EMERGENCY DEPARTMEN T VISIT PHYSICIAN HIGH/URGE S NT SEVERITY EMERGENCY 77221 ST. 5 5 RONA DEPARTMEN GRACE T VISIT HIGH/URGE NT SEVERITY EMERGENCY 85370 [facility] 5 5 EMERGENCY AMALIA VISIT HIGH PHYSICIAN SEVERITY& S [facility]RE[facility] ST. - 5 5 R[facility] - 5 5 RONA OUTPATIEN MED CTR T [facility] - 5 5 RONA OUTPATIEN MED CTR T [facility] - 5 5 RONA OUTPATIEN MED CTR T [facility] OFFICE [address] [facility] OUTPATIEN 5 5 RONA G HECTOR T VISIT 15 PHYSICIAN MINUTES S OFFICE [address]70[address] [facility] OUTPATIEN 5 5 RONA G HECTOR T VISIT 15 PHYSICIAN MINUTES S EMERGENCY [address]3517 ST. 5 5 RONA DEPARTMEN BELINDA T VISIT LOW/MODER SEVERITY EMERGENCY 55544 [facility] 5 5 EMERGENCY KARISHMA DEPARTMEN T VISIT PHYSICIAN HIGH/URGE S NT [facility] ST[facility] - 5 5 [facility] - 4 4 RONA OUTPATIEN MED CTR T [facility] [address] [facility] OUTPATIEN 4 4 RONA RUBINA T VISIT 15 PHYSICIAN MINUTES [facility] ST - 4 4 RONA INPATIENT MED CTR [facility] [address] [facility] OUTPATIEN 4 4 RONA MAR T VISIT 15 PHYSICIAN MINUTES [facility] ST - 4 4 RONA OUTPATIEN MED CTR T [facility] ST - 4 4 RONA OUTPATIEN MED CTR T [facility] [address] [facility] OUTPATIEN 4 4 RONA AGUILA T VISIT 15 PHYSICIAN MINUTES [facility] ST - 4 4 RONA OUTPATIEN MED CTR T [facility] ST - 4 4 RONA OUTPATIEN MED CTR T [facility] - 4 4 RONA OUTPATIEN MED CTR T [facility] - 4 4 RONA OUTPATIEN MED CTR T [facility] - 4 4 RONA OUTPATIEN MED CTR T [facility] - 4 4 RONA OUTPATIEN MED CTR T FIBERLINE SUPERVISOR ST OFFICE 52522 [facility] OUTPATIEN 4 4 RONA LIS T VISIT 15 PHYSICIAN MINUTES S OFFICE 31564 [facility] OUT[facility]IEN 4 4 RONA LIS T VISIT 15 PHYSICIAN MINUTES [facility] ST - 2 2 RONA OUTPATIEN MED CTR T FIBERLINE SUPERVISOR ST OFFICE [address]276 ST OUTPATIEN 2 2 RONA T VISIT MED CTR [address] MINUTES
--- OUTSIDE RECORDS SUMMARY | 2017-05-20 22:43 | External Medical Summary Rpt ---
Author Author , IRENE Ortiz IRENE Address Unknown Phone [email or web address] Care Team Providers Care Master Fire Control Technician Name Role Phone MONCADA HECTOR, MONCADA HECTOR [...] ARENAS Unavailable Unavailable JR FRANCO NORA VJ, NORA Unavailable Unavailable [facility] Unavailable Unavailable LLC, [facility] Unavailable Unavailable LLC, [facility] ABEBA STORY, Unavailable Unavailable ABEBA STORY THEE MAR, THEE Unavailable Unavailable MAR THEE MAR, THEE Unavailable Unavailable MAR DYLAN SARKARMAN Unavailable Unavailable JULIANA HERNANDEZ VJ, HERNANDEZ VJ Unavailable Unavailable HERNANDEZ ALEKSANDAR, HERNANDEZ ALEKSANDAR Unavailable Unavailable [facility], Unavailable Unavailable [facility] Unavailable Unavailable NURSING DIRECTOR ST, [facility] NURSING DIRECT[facility] Unavailable Unavailable [facility]IANS[facility] Un[facility] Unavailable [facility], [facility], Unavailable Unavailable [facility] EDUCE SCHWARZ, Unavailable Unavailable [facility] KARISHMA STEINKAMP HECTOR, Unavailable Unavailable STEINKAMP HECTOR STERNEBERG HECTOR, Unavailable Unavailable STERNEBERG HECTOR Redeem W, Mango, Unavailable Unavailable Redeem W, [employer] Mango, Unavailable Unavailable [facility] Unavailable Unavailable ME, [facility] KATYA SCO, KATYA SCO Unavailable Unavailable VON HOENE AMA, VON Unavailable Unavailable HOENE AMA DERRICK AMALIA, DERRICK Unavailable Unavailable AMALIA Purpose Continuity of Care Document - 12-25-2011 through 2016 Problems Code Diagnosis DOS Provider Status N912 AMENORRHEA 03-23-2016 UNSPECIFIED [facility] NURSING DIRECTOR ST [id number] ENCOUNTER 03-23-2016 ROUTINE R[facility] CHECKING IU MED CTR NURSING DIRECTOR CONTRACEPT ST DEVICE N27176 ENCOUNTER 03-23-2016 REMOVAL [facility] INTRAUTERIN MED CTR NURSING DIRECTOR E ST CONTRACEPT DEVICE Z0000 ENCOUNTER 01-19-2016 GEN ADULT [facility] MED EXAM PHYSICIANS W/O ABNORMAL FIND Z975 PRESENCE OF 01-19-2016 [facility] INTRAUTERIN PHYSICIANS E CONTRACEPTI VE DEVICE R079 CHEST PAIN 01-03-2016 UNSPECIFIED [facility] NURSING DIRECTOR ST V17216 OTHER LONG 01-03-2016 TERM [facility] CURRENT MED CTR NURSING DIRECTOR DRUG ST THERAPY Z8249 FAMILY HX 01-03-2016 ISCHEMIC RONA HRT DZ OTH MED CTR NURSING DIRECTOR DZ CIRC ST SYSTEM D20527 PERSONAL 01-03-2016 HISTORY OF [facility] NICOTINE MED CTR NURSING DIRECTOR DEPENDENCE ST N921 EXCESS & 11-25-2015 FREQUENT RONA MENSTRUATIO PHYSICIANS N W/IRREGULAR CYCLE G53630 ENCOUNTER 11-25-2015 ST. INITIAL RONA PRESCRIPTIO GRACE N INJECT CONTRACEPT Z3009 ENCOUNTER 11-22-2015 . OT GENERAL RONA GRACE MANAGER MATERIAL&ADV ICE CONTRACEPT O8612 ENDOMETRITI 11-13-2015 S FOLLOWING [...] 11-06-2015 ST FOR ROUTINE [facility] NURSING DIRECTOR FOLLOW-UP ST Z391 ENCNTR FOR 11-04-2015 [facility] LACTATING MOTHER O80 ENCOUNTER 11-02-2015 FOR [facility] FULL-TERM PHYSICIANS UNCOMPLICAT ED DELIVERY Z370 SINGLE LIVE 11-02-2015 RONA PHYSICIANS Z3483 ENC 11-01-2015 ST SUPERVISION RONA OT NORMAL PHYSICIANS 3 TRIMESTER O65149 SUP PREG 10-25-2015 ST W/OTH POOR [facility] REPRODUCTIV MED CTR NURSING DIRECTOR E/OB HX ST THIRD TRI F40861 OTHER SPEC 10-25-2015 ST [facility] RELATED PHYSICIANS COND 3RD TRIMESTER [id number] MATERNAL 10-25-2015 CARE ANTI-D [facility] ANTIBODIES PHYSICIANS THIRD TRI NA/UNS O4700 FALSE LABOR 10-25-2015 ST BEFORE 37 RONA CMPLETE PHYSICIANS WEEKS GEST UNS TRI O471 FALSE LABOR 10-25-2015 ST AT/AFTER RONA 37 PHYSICIANS COMPLETED WEEKS GEST R443 HALLUCINATI 10-25-2015 ST ONS RONA UNSPECIFIED PHYSICIANS R51 HEADACHE 10-25-2015 RONA PHYSICIANS Z36 ENCOUNTER 10-25-2015 FOR [facility] NURSING DIRECTOR SCREENING ST OF MOTHER Z3A37 37 WEEKS 10-25-2015 ST GESTATION RONA OF PHYSICIANS Z3A38 38 WEEKS 10-25-2015 ST GESTATION RONA OF MED CTR NURSING DIRECTOR ST O9989 OTH DZ & 10-22-2015 ST COND COMP R[facility] PREG MED CTR NURSING DIRECTOR [facility] ST PUERPERIUM B712338 DECREASED 10-18-2015 ST [facility] MOVEMENTS MED CTR NURSING DIRECTOR THIRD ST TRIMESTER NA/UNS Z3A36 36 WEEKS 10-18-2015 ST GESTATION RONA OF MED CTR NURSING DIRECTOR ST R300 DYSURIA 09-27-2015 ST RONA PHYSICIANS Z3A33 33 WEEKS 09-27-2015 ST GESTATION RONA OF PHYSICIANS B3749 OTHER 09-19-2015 ST UROGENITAL [facility] CANDIDIASIS MED CTR NURSING DIRECTOR ST N939 ABNORMAL 09-19-2015 ST UTERINE & [facility] VAGINAL MED CTR NURSING DIRECTOR BLEEDING ST UNSPECIFIED O4703 FALSE LABOR 09-19-2015 ST BEFORE 37 RONA CMPLETE MED CTR NURSING DIRECTOR WEEKS GEST ST 3RD TRI W42123 OTH 09-19-2015 ST MATERNAL RONA INF & MED CTR NURSING DIRECTOR PARASIT DZ ST COMP PREG 3RD TRI [...] WEEKS 08-25-2015 ST GESTATION RONA OF PHYSICIANS K98818 08-22-2015 [facility] LABR >24 HRS FLW RUPT 3RD TRI Z3A28 28 WEEKS 08-22-2015 [facility] OF O6003 08-20-2015 ST LABOR R[facility] WITHOUT MED CTR NURSING DIRECTOR DELIVERY ST THIRD TRIMESTER I74278 OTHER SPEC 08-19-2015 ST [facility] RELATED MED CTR NURSING DIRECTOR COND UNS ST TRIMESTER [id number] MATERNAL 08-17-2015 CARE ANTI-D [facility] ANTIBODIES MED CTR NURSING DIRECTOR [address]ND [address] NA/UNS R440 AUDITORY 07-28-2015 ST HALLUCINATI RONA ONS PHYSICIANS R441 VISUAL 07-28-2015 ST HALLUCINATI RONA ONS PHYSICIANS Z3482 ENC 07-28-2015 ST SUPERVISION RONA OTH NORMAL PHYSICIANS 2 TRIMESTER Z3A25 25 WEEKS 07-28-2015 ST GESTATION RONA OF PHYSICIANS V221 SUPERVISION 06-29-2015 ST OF OTHER RONA NORMAL PHYSICIANS V232 06-29-2015 ST WITH RONA HISTORY OF MED CTR NURSING DIRECTOR ST V220 SUPERVISION 06-08-2015 ST OF NORMAL RONA FIRST PHYSICIANS 34265 OTHER 06-07-2015 ST SPECIFED [facility] COMPLICATIO MED CTR NURSING DIRECTOR N ST ANTEPARTUM 82271 FEVER 06-07-2015 ST UNSPECIFIED [facility] NURSING [place]OR ST 53452 UNS 06-03-2015 ST ABNORM MGMT RONA MOTH PHYSICIANS ANTPRTM COND/COMP 39507 MILD 06-02-2015 ST HYPEREMESIS RONA GRAVIDARUM PHYSICIANS UNSPEC EPIS CARE 90590 MILD 06-02-2015 ST HYPEREMESIS [facility]ONA GRAVIDARUM MED CTR NURSING DIRECTOR ANTEPARTUM ST V2889 OTHER 06-02-2015 ST SPECIFIED [facility] NURSING DIRECTOR SCREENING ST 78255 UNSPECIFIED 05-02-2015 ST ANTEPARTUM [facility] HEMORRHAGE MED CTR NURSING DIRECTOR ANTEPARTUM ST V1582 PERS HX 05-02-2015 ST TOBACCO USE R[facility] PRESENTING MED CTR NURSING DIRECTOR HAZARDS ST [facility] 1129 CANDIDIASIS 04-27-2015 ST OF RONA UNSPECIFIED PHYSICIANS SITE 462 ACUTE 04-27-2015 ST PHARYNGITIS RONA PHYSICIANS 463 ACUTE 04-27-2015 ST TONSILLITIS RONA PHYSICIANS 7881 DYSURIA 04-27-2015 ST RONA PHYSICIANS V222 04-27-2015 ST STATE, RONA INCIDENTAL PHYSICIANS 6235 LEUKORRHEA 03-30-2015 ST NOT RONA SPECIFIED PHYSICIANS INFECTIVE V7242 03-14-2015 ST EXAMINATION RONA OR TEST MED CTR NURSING DIRECTOR POSITIVE ST RESULT 6259 UNSPEC 03-12-2015 [facility] PHYS[facility]ANS W/FEMALE GENITAL ORGANS 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 SPONTANEOUS RONA AB COMP GRACE DELAY/EXCES S HEMORR 47385 RHESUS 01-24-2015 ST. ISOIMMUN RONA AFFCT MGMT GRACE MOTH ANTPRTM COND 6260 ABSENCE OF 01-11-2015 ST MENSTRUATIO [facility] N MED CTR NURSING DIRECTOR ST V1589 OTH SPEC 01-07-2015 ST PERS HX [facility] PRESENTING MED CTR NURSING DIRECTOR HAZARDS ST [facility] OTH 5990 URINARY 12-29-2014 TRACT [facility] INFECTION PHYSICIANS SITE NOT SPECIFIED 02998 HEMATURIA 12-29-2014 ST UNSPECIFIED [facility] V741 SCREENING 11-04-2014 EXAMINATION [facility] FOR PHYSICIANS PULMONARY TUBERCULOSI S 5589 OTH&UNSPEC 10-26-2014 . NONINFECTIO [facility] GASTRO[facility] ITIS&COLITI S 96082 DIARRHEA 10-26-2014 ST. 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 55338 REFRACTIVE 09-28-2014 VALLE ISIDRO AMBLYOPIA 650 NORMAL 09-02-2014 INDEPENDENT DELIVERY ANESTHESIOL OGIST 42822 DECR 09-02-2014 ST MOVMNTS RONA MGMT MOTH MED CTR ANTPRTM COND/COMP 2859 UNSPECIFIED 09-01-2014 ST ANEMIA [facility] CTR NURSING DIRECTOR ST 11018 MATERNAL 09-01-2014 ST ANEMIA RONA W/DELIVERY MED CTR NURSING DIRECTOR W/CURRENT ST PPC 60797 DECR 09-01-2014 ST MOVEMENTS RONA AFFECT MGMT MED CTR NURSING DIRECTOR [place] 22198 PREMATURE 09-01-2014 ST RUPTURE RONA MEMB PG PHYSICIANS UNSPEC EPIS CARE 54435 PREMATURE 09-01-2014 ST RUPTURE [facility] MEMBRANES MED CTR NURSING DIRECTOR ST DELIVERED 03232 ABN FETL 09-01-2014 ST HRT RONA RATE/RHYTHM MED CTR NURSING DIRECTOR DELIV W/WO ST ANTPRTM COND 43404 HIGH 09-01-2014 ST VAGINAL [facility] LACERATION MED CTR NURSING DIRECTOR WITH ST DELIVERY 7823 EDEMA 09-01-2014 ST [facility] CTR NURSING DIRECTOR ST V270 OUTCOME OF 09-01-2014 ST DELIVERY RONA SINGLE PHYSICIANS LIVEBORN 37751 OTHER 08-25-2014 ST THREATENED RONA LABOR, PHYSICIANS ANTEPARTUM 94944 RHESUS 08-25-2014 ST ISOIMMUNIZA RONA TION UNSPEC PHYSICIANS EPIS CARE PG V2389 SUPERVISION 08-25-2014 ST OF OTHER RONA HIGH-RISK PHYSICIANS 37573 OTH CURRENT 08-16-2014 ST MAT CONDS [facility] CLASSIFIABL MED CTR NURSING DIRECTOR E ELSW ST ANTPRTM 1121 CANDIDIASIS 07-18-2014 ST OF VULVA RONA AND VAGINA MED CTR NURSING DIRECTOR ST 32315 THREATENED 07-18-2014 ST PREMATURE RONA LABOR MED CTR NURSING DIRECTOR ANTEPARTUM ST 57057 INFECTIONS 07-18-2014 ST OF [facility] GENITOURINA MED CTR NURSING DIRECTOR RY TRACT ST ANTEPARTUM V154 PERS HX 04-13-2014 [facility]PT [facility] AL TRAUMA PRS [facility] 17449 UNSPECIFIED 12-16-2013 ST VAGINITIS RONA AND PHYSICIANS VULVOVAGINI TIS V289 UNSPECIFIED 02-21-2012 ST [facility] SCREENING MED CTR NURSING DIRECTOR ST 34447 THREATENED 01-29-2012 ST PREMATURE RONA LABOR PHYSICIANS UNSPEC EPIS CARE 73944 PREMATURE 12-25-2011 [facility] MATERNAL OF PLACENTA [...] DOS Code [place] [address] [facility] DON SURG 6 [facility] PATHOLOGY MED CTR GROSS EXAMINATI ON ONLY GONADOTRO [address] PIN 6 RONA RONA CHORIONIC GRACE GRACE QUANTITAT RONNIE LEVONORGE J7298 ST URENA STREL-RLS 6 RONA ALL INTRAUTER PHYSICIAN INE MOOKIE S SYS [address] ROUTINE 6 RONA RONA ECG MED CTR MED CTR W/LEAST NURSING DIRECTOR ST NURSING DIRECTOR ST 12 LDS TRCG ONLY W/O I&R BASIC [address] METABOLIC 6 RONA RONA PANEL MED CTR MED CTR CALCIUM NURSING DIRECTOR ST NURSING DIRECTOR ST TOTAL COLLECTIO [address] N VENOUS 6 RONA RONA BLOOD MED CTR MED CTR VENIPUNCT NURSING DIRECTOR ST NURSING DIRECTOR ST URE RADIOLOGI [address] C EXAM 6 RONA RONA CHEST 2 MED CTR MED CTR VIEWS NURSING DIRECTOR ST NURSING DIRECTOR ST FRONTAL&L ATERAL ECG 59207 ST HEEB CHR ROUTINE 6 RONA ECG MED CTR W/LEAST 12 LDS [place] [address] TROPONIN 6 RONA RONA QUANTITAT MED CTR MED CTR RONNIE NURSING DIRECTOR ST NURSING DIRECTOR ST BLOOD [address] COUNT 6 RONA RONA COMPLETE MED CTR MED CTR AUTO&AUTO NURSING DIRECTOR ST NURSING DIRECTOR ST DIFRNTL WBC COLLECTIO [address] N VENOUS 6 RONA RONA BLOOD GRACE GRACE VENIPUNCT URE THERAPEUT 27368 ST CAREY IC 6 RONA MAR PROPHYLAC TIC/DX PHYSICIAN INJECTION S SUBQ/IM GONADOTRO [address] PIN 6 RONA RONA CHORIONIC GRACE GRACE QUANTITAT RONNIE GONADOTRO [address] PIN 6 RONA RONA CHORIONIC GRACE GRACE QUANTITAT RONNIE COLLECTIO [address] N VENOUS 6 RONA RONA BLOOD GRACE GRACE VENIPUNCT URE INITIAL 29527 [facility] 6 RONA SHEEHAN CARE/DAY 50 PHYSICIAN MINUTES S RADIOLOGI 71508 THEE THEE C EXAM 6 Dec CHEST 2 VIEWS FRONTAL&L ATERAL CRITICAL 36150 [facility] 6 EMERGENCY ILL/INJUR ED PHYSICIAN PATIENT S INIT 30-[address] OUTPATIEN 6 RONA RONA T CLIN MED CTR MED CTR VISIT [facility] ST NURSING DIRECTOR ST ASSESS & MGMT PT BREAST E0603 PEDIATRIC PEDIATRIC PUMP 6 PRODUCTS [facility] ANY TYPE VAGINAL [address]24 ST GANSHIRT DELIVERY 6 RONA AGUILA ONLY W/POSTPAR PHYSICIAN FERCHO CARE S NEURAXIAL 84513 ANESTHESI KITE JOSE E LABOR 6 A GROUP ANALG/ANE PRACTICE S PLND VAGINAL DELIVERY [address] NONSTRESS 6 RONA RONA TEST MED CTR MED CTR [facility] G0463 ST ST OUTPATIEN 6 RONA RONA T CLIN MED CTR MED CTR VISIT [facility] ST NURSING DIRECTOR ST ASSESS & MGMT PT HOSPITAL G0463 ST ST OUTPATIEN 6 RONA RONA T CLIN MED CTR MED CTR VISIT [facility] ST ASSESS & [place] [address] NONSTRESS 6 RONA RONA TEST MED CTR MED CTR NURSING DIRECTOR ST [place] [address] NONSTRESS 6 RONA RONA TEST MED CTR MED CTR [facility] ST ST OUTPATIEN 6 RONA RONA T CLIN MED CTR MED CTR VISIT [facility] ST NURSING DIRECTOR ST ASSESS & MGMT PT SBSQ [address]343 ST GANSHIRT OBSERVATI 6 RONA AGUILA ON CARE/DAY PHYSICIAN [address] URENA NONSTRESS 6 RONA ALL TEST PHYSICIAN S [address] NONSTRESS 6 RONA RONA TEST MED CTR MED CTR [facility] G0463 ST ST OUTPATIEN 6 RONA RONA T CLIN MED CTR MED CTR VISIT NURSING DIRECTOR ST NURSING DIRECTOR ST ASSESS & [place] [address] BIOPHYSIC 6 RONA RONA AL MED CTR MED CTR PROFILE NURSING DIRECTOR ST NURSING DIRECTOR ST W/O NON-STRES S TESTING IADNA [address] STREPTOCO 5 RONA RONA CCUS MED CTR MED CTR GROUP B NURSING DIRECTOR ST NURSING DIRECTOR ST AMPLIFIED PROBE TQ IADNA [address] NEISSERIA 5 RONA RONA MED CTR MED CTR GONORRHOE NURSING DIRECTOR ST NURSING DIRECTOR ST AE AMPLIFIED PROBE TQ IADNA [address] CHLAMYDIA 5 RONA RONA MED CTR MED CTR TRACHOMAT NURSING DIRECTOR ST NURSING DIRECTOR ST IS AMPLIFIED PROBE TQ CULTURE [address] BACTERIAL 5 RONA RONA MED CTR MED CTR QUANTTATI NURSING DIRECTOR ST NURSING DIRECTOR ST VE COLONY COUNT [facility] G04[facility] ST ST OUTPATIEN 5 RONA RONA T CLIN MED CTR MED CTR VISIT NURSING DIRECTOR ST NURSING DIRECTOR ST ASSESS & [place] [address] NONSTRESS 5 RONA RONA TEST MED CTR MED CTR NURSING DIRECTOR ST [place] [address] NONSTRESS 5 RONA RONA TEST MED CTR MED CTR NURSING DIRECTOR ST NURSING DIRECTOR ST HOSP[facility] G0463 ST ST OUTPATIEN 5 RONA RONA T CLIN MED CTR MED CTR VISIT NURSING DIRECTOR ST NURSING DIRECTOR ST ASSESS & MGMT PT GLUCOSE [address] [facility] 5 RONA RONA GLUCOSE GRACE GRACE DOSE COLLECTIO [address] N VENOUS 5 RONA RONA [place] [address] 5 RONA RONA UTERUS MED CTR MED CTR LIMITED NURSING DIRECTOR ST NURSING DIRECTOR ST 1/> FETUSES FERN TEST Q0114 ST OLY SIVAN 5 RONA PHYSICIAN S THERAPEUT [address] IC 5 RONA RONA PROPHYLAC MED CTR MED CTR TIC/DX NURSING DIRECTOR ST NURSING DIRECTOR ST INJECTION SUBQ/IM SBSQ 83905 [facility] 5 RONA CARE/DAY 25 PHYSICIAN MINUTES S [address] OLY SIVAN NONSTRESS 5 RONA TEST PHYSICIAN S [address]5513 ST VON HO[place] NONSTRESS 5 RONA AMA TEST PHYSICIAN S ANTIBODY [address] TREPONEMA 5 RONA RONA PALLIDUM MED CTR MED CTR NURSING DIRECTOR ST NURSING DIRECTOR ST COMPATIBI [address] LITY EACH 5 RONA RONA UNIT MED CTR MED CTR ANTIGLOBU NURSING DIRECTOR [place] [address] INFUSION 5 RONA RONA HYDRATION MED CTR MED CTR EACH NURSING DIRECTOR ST [place] [place] [address] INFUSION 5 RONA RONA THERAPY/P MED CTR MED CTR ROPHYLAXI NURSING DIRECTOR ST NURSING DIRECTOR ST S /DX 1ST TO [address] [facility] HO[place] OBSERVATI 5 RONA AMA ON CARE/DAY PHYSICIAN 30 S MINUTES HOSPITAL G0463 [facility] ST OUTPATIEN 5 RONA RONA T CLIN MED CTR MED CTR VISIT NURSING DIRECTOR ST NURSING DIRECTOR ST ASSESS & [place] P[place] [address] ST UTERUS 5 RONA RONA REAL TIME MED CTR MED CTR W/IMAGE NURSING DIRECTOR ST NURSING DIRECTOR ST DCMTN TRANSVAG THERAPEUT [address] IC 5 RONA RONA PROPHYLAC MED CTR MED CTR TIC/DX NURSING DIRECTOR ST NURSING DIRECT[place] [address] 5 RONA RONA UTERUS MED CTR MED CTR LIMITED NURSING DIRECTOR ST NURSING DIRECTOR ST 1/> [facility] ST ST OUTPATIEN 5 RONA RONA T CLIN MED CTR MED CTR VISIT NURSING DIRECTOR ST NURSING DIRECTOR ST ASSESS & MGMT PT IADNA [address] ST NEISSERIA 5 RONA RONA MED CTR MED CTR GONORRHOE NURSING DIRECTOR ST NURSING DIRECTOR ST AE AMPLIFIED PROBE TQ IADNA [address] CHLAMYDIA 5 RONA RONA MED CTR MED CTR TRACHOMAT NURSING DIRECTOR ST NURSING DIRECTOR ST IS AMPLIFIED PROBE TQ HOSPITAL G0463 ST ST OUTPATIEN 5 RONA RONA T CLIN MED CTR MED CTR VISIT NURSING DIRECTOR ST NURSING DIRECTOR ST ASSESS & [place] [address] NONSTRESS 5 RONA RONA TEST MED CTR MED CTR NURSING DIRECTOR ST NURSING DIRECTOR ST THERAPEUT [address] IC 5 RONA RONA PROPHYLAC MED CTR MED CTR TIC/DX NURSING DIRECTOR ST NURSING DIRECTOR ST INJECTION SUBQ/IM [place] PREG [address] UTERUS 5 RONA RONA REAL TIME MED CTR MED CTR W/IMAGE NURSING DIRECTOR ST NURSING DIRECTOR ST DCMTN TRANSVAG CRYSTAL 27113 ST URENA ID LIGHT 5 RONA ALL MICROSCOP Y CARI PHYSICIAN TISS/ANY S FLUID THERAPEUT [address] IC 5 RONA RONA PROPHYLAC MED CTR MED CTR TIC/DX NURSING DIRECTOR ST NURSING DIRECTOR ST INJECTION SUBQ/IM IADNA [address] TRICHOMON 5 RONA RONA MED CTR MED CTR VAGINALIS NURSING DIRECTOR ST NURSING DIRECTOR [place] [address] UTERUS 5 RONA RONA AFTER 1ST MED CTR MED CTR TRIMEST NURSING DIRECTOR ST NURSING DIRECTOR ST 1/ GESTATION IADNA [address] ST ST GARDNEREL 5 RONA RONA LA MED CTR MED CTR VAGINALIS NURSING DIRECTOR ST NURSING DIRECTOR ST DIRECT PROBE TQ IADNA [address] CHLAMYDIA 5 RONA RONA MED CTR MED CTR TRACHOMAT NURSING DIRECTOR ST NURSING DIRECTOR ST IS AMPLIFIED PROBE TQ IADNA [address] NEISSERIA 5 RONA RONA MED CTR MED CTR GONORRHOE NURSING DIRECTOR ST NURSING DIRECTOR ST AE AMPLIFIED PROBE TQ IADNA [address] JEREL 5 RONA RONA SPECIES MED CTR MED CTR DIRECT NURSING DIRECTOR ST NURSING DIRECTOR ST PROBE TQ SBSQ 16205 ST GANSHIRT OBSERVATI 5 RONA AGUILA ON CARE/DAY PHYSICIAN 15 S MINUTES INJECTION J2405 ST ST 5 RONA RONA ONDANSETR MED CTR MED CTR ON HCL NURSING DIRECTOR ST NURSING DIRECTOR ST PER 1 [place] [address] INFUSION 5 RONA RONA HYDRATION MED CTR MED CTR EACH NURSING DIRECTOR ST NURSING DIRECTOR ST ADDITIONA L HOUR COMPREHEN [address] SIVE 5 RONA RONA METABOLIC MED CTR MED CTR PANEL NURSING DIRECTOR ST NURSING DIRECTOR ST URNLS DIP [address] 5 RONA RONA STICK/TAB MED CTR MED CTR LET RGNT NURSING DIRECTOR ST NURSING DIRECTOR ST AUTO W/O MICROSCOP Y IADNA [address] TRICHOMON 5 RONA RONA MED CTR MED CTR VAGINALIS NURSING DIRECTOR ST NURSING DIRECTOR ST DIRECT PROBE TQ THER [address] PROPH/DX 5 RONA RONA NJX IV MED CTR MED CTR PUSH NURSING DIRECTOR ST NURSING DIRECTOR ST SINGLE/1S T SBST/DRUG IADNA [address] JEREL 5 RONA RONA SPECIES MED CTR MED CTR DIRECT NURSING DIRECTOR ST NURSING DIRECTOR ST PROBE TQ IADNA [address] NEISSERIA 5 RONA RONA MED CTR MED CTR GONORRHOE NURSING DIRECTOR ST NURSING DIRECTOR ST AE AMPLIFIED PROBE TQ IADNA [address] CHLAMYDIA 5 RONA RONA MED CTR MED CTR TRACHOMAT NURSING DIRECTOR ST NURSING DIRECTOR ST IS AMPLIFIED PROBE TQ IADNA [address] GARDNEREL 5 RONA RONA LA MED CTR MED CTR VAGINALIS NURSING DIRECTOR ST NURSING DIRECTOR ST DIRECT PROBE TQ BLOOD [address] COUNT 5 RONA RONA COMPLETE MED CTR MED CTR AUTOMATED NURSING DIRECTOR ST NURSING DIRECTOR ST RINGERS J7120 ST ST LACTATE 5 RONA RONA INFUSION MED CTR MED CTR UP TO NURSING DIRECTOR ST NURSING DIRECTOR ST [address] 5 RONA RONA STREPTOCO [place] [address] 5 RONA RONA UTERUS 14 MED CTR MED CTR WK NURSING DIRECTOR ST NURSING DIRECTOR ST TRANSABDL GESTAT GONADOTRO 24149 [facility] PIN 5 RONA REA CHORIONIC GRACE GRACE QUANTITAT RONNIE COLLECTIO 75808 [facility] N VENOUS 5 RONA RE[place] [address] [facility] VJ 5 W, LLC UTERUS 14 WK TRANSABDL GESTAT [place] PREG 12114 RADIOLOGY KATYA SCO UTERUS 5 REAL TIME ASSOCIATE W/IMAGE S OF NOT DCMTN TRANSVAG GONADOTRO 74407 [facility] PIN 5 RONA REA CHORIONIC MED CTR MED CTR NURSING DIRECTOR [facility] QUANTITAT RONNIE COLLECTIO 90954 [facility] VENOUS 5 RONA CESPEDES BLOOD VENIPUNCT PHYSICIAN URE S COLLECTIO 13471 [facility] VENOUS 5 RONA REA BLOOD BELINDA BELINDA VENIPUNCT URE URNLS DIP 71085 [facility] 5 RONA REA STICK/TAB BELINDA BELINDA LET REAGENT AUTO MICROSCOP Y GONADOTRO 51333 [facility] PIN 5 RONA REA CHORIONIC BELINDA BELINDA QUANTITAT RONNIE ONDANSETR Q0162 [facility] ON 1 MG 5 RONA REA ORL NOT BELINDA BELINDA EXCEED 48 HR DOSE REG IADNA 65942 [facility] NEISSERIA 5 RONA REA BELINDA BELINDA GONORRHOE AE AMPLIFIED PROBE TQ IADNA 92060 [facility] CHLAMYDIA 5 RONA REA BELINDA BELINDA TRACHOMAT IS AMPLIFIED PROBE TQ IAADIADOO 36008 [place] [address] RONA REA TRICHOMON BELINDA BELINDA VAGINALIS US PREG 25298 [facility] UTERUS 5 RONA REA REAL TIME MED CTR MED CTR W/IMAGE NURSING DIRECTOR [facility] [place] [address] [facility] 5 RONA REA UTERUS 14 MED CTR MED CTR WK NURSING DIRECTOR ST NURSING DIRECTOR ST TRANSABDL GESTAT COLLECTIO [address] ST [address] N VENOUS 5 RONA RONA BLOOD MED CTR MED CTR VENIPUNCT NURSING DIRECTOR ST NURSING DIRECTOR ST URE GONADOTRO [address] PIN 5 RONA RONA CHORIONIC MED CTR MED CTR NURSING DIRECTOR ST NURSING DIRECTOR ST QUANTITAT RONNIE IADNA [address] TRICHOMON 5 RONA MERCADOTH MED CTR MED CTR VAGINALIS NURSING DIRECTOR ST NURSING DIRECTOR ST DIRECT PROBE TQ IADNA [address] GARDNEREL 5 RONA RONA LA [facility] VAGINALIS NURSING DIRECTOR ST NURSING DIRECTOR ST DIRECT PROBE TQ SUSCEPTIB [address] LTY STDY 5 [facility] ANTIMICRB [facility] IAL NURSING DIRECTOR ST NURSING DIRECTOR ST MICRO/AGA R DILUTJ IADNA [address] CHLAMYDIA 5 [facility] TRACHOMAT NURSING DIRECTOR ST NURSING DIRECTOR ST IS AMPLIFIED PROBE TQ CUL BACT [address] AEROBIC 5 [facility]ONA [facility] ADDL [facility] METHS NURSING DIRECTOR ST NURSING DIRECTOR ST DEFINITIV E EA ISOL CULTURE [address] BACTERIAL 5 [facility] QUANTTATI NURSING DIRECTOR ST NURSING DIRECTOR ST VE COLONY COUNT URINE IADNA [address] JEREL 5 [facility]ONA [facility] SPECIES [facility] DIRECT NURSING DIRECTOR ST NURSING DIRECTOR ST PROBE TQ IADNA [address] NEISSERIA 5 [facility] GONORRHOE NURSING DIRECTOR ST NURSING DIRECTOR ST AE AMPLIFIED PROBE TQ URINE 19364 ST STERNEBER 5 RONA G HECTOR TEST VISUAL PHYSICIAN COLOR S CMPRSN METHS SKIN TEST 55577 ST STERNEBER 5 RONA G HECTOR TUBERCULO SIS PHYSICIAN INTRADERM S AL IADNA [address] TRICHOMON 4 RONA MERCADOTH [facility] VAGINALIS NURSING DIRECTOR ST NURSING DIRECTOR ST DIRECT PROBE TQ IADNA [address] JEREL 4 RONA REA SPECIES MED [facility] MED [facility] DIRECT NURSING DIRECTOR ST NURSING DIRECTOR ST PROBE TQ IADNA [address] ST [address] GARDNEREL 4 RONA REA LA [facility] VAGINALIS NURSING DIRECTOR ST NURSING DIRECTOR ST DIRECT PROBE TQ FRAMES V2020 [facility]ET[facility] HECTOR PURCHASES 4 1 VISN V2103 [facility]ECTOR PLANO 4 TO+/-4.00 D SPHER 0.12-2.00 D CYL EA SCRATCH V2760 [facility]OR RESISTANT 4 COATING PER LENS LENS V2784 [facility]OR POLYCARBO 4 ERMI OR EQUAL ANY INDEX PER LENS 1 VISN V2104 CORAL MURRIETA HECTOR PLANO-+/- 4 4.00D SPHER 2.12-4.00 D CYL EA OPHTH 26945 [facility] 4 ISIDRO FELIX XM&EVAL COMPRHNSV ESTAB PT 1/> FITTING 10781 VALLE VALLE SPECTACLE 4 ISIDRO FELIX S XCPT [place] [address] OTHER 4 RONA REA CURRENT [facility] OBSTETRIC NURSING DIRECTOR ST NURSING DIRECTOR ST LACERATIO N OTHER [address] MANUALLY 4 [facility]ONA REA ASSISTED [facility] MED [facility] DELIVERY NURSING DIRECTOR ST NURSING DIRECTOR ST OTHER [address] ARTIFICIA 4 RONA REA L RUPTURE MED CTR MED CTR OF NURSING DIRECTOR ST NURSING DIRECTOR [facility] NEURAXIAL [address]1539 INDEPENDE STEINKAMP LABOR 4 NT HECTOR ANALG/ANE ANESTHESI S PLND OLOGIST VAGINAL DELIVERY VAGINAL 71645 [facility] DELIVERY 4 RONA ROBERSON W/POSTPAR PHYSICIAN FERCHO CARE [place] [address] ST LEAL SURG 4 RONA Z[facility]ALA PATHOLOGY MED CTR GROSS&JOSE E ROSCOPIC EXAM [address] NONSTRESS 4 RONA REA TEST PHYSICIAN PHYSICIAN S S CRYSTAL 85380 [facility] ID LIGHT 4 RONA FELIX MICROSCOP Y CARI PHYSICIAN TISS/ANY S FLUID [address]83 [facility] NONSTRESS 4 RONA MAR TEST PHYSICIAN S [address] NONSTRESS 4 RONA RONA TEST MED CTR MED CTR NURSING DIRECTOR ST NURSING DIRECTOR ST IADNA [address] GARDNEREL 4 RONA RONA LA MED CTR MED CTR VAGINALIS NURSING DIRECTOR ST NURSING DIRECTOR ST DIRECT PROBE TQ IADNA [address] JEREL 4 RONA RONA SPECIES MED CTR MED CTR DIRECT NURSING DIRECTOR ST NURSING DIRECTOR ST PROBE TQ IADNA [address] TRICHOMON 4 RONA RONA MED CTR MED CTR VAGINALIS NURSING DIRECTOR ST NURSING DIRECTOR ST DIRECT PROBE TQ INITIAL 89448 ST URENA OBSERVATI 4 RONA ALL ON CARE/DAY PHYSICIAN 30 S MINUTES URNLS DIP [address] 4 RONA RONA STICK/TAB MED CTR MED CTR LET NURSING DIRECTOR ST NURSING DIRECTOR ST REAGENT AUTO MICROSCOP Y [address]157 ST RUENA NONSTRESS 4 RONA ALL TEST PHYSICIAN S [address] NONSTRESS 4 RONA RONA TEST MED CTR MED CTR NURSING DIRECTOR ST NURSING DIRECTOR ST IADNA [address] GARDNEREL 4 RONA RONA LA MED CTR MED CTR VAGINALIS NURSING DIRECTOR ST NURSING DIRECTOR ST DIRECT PROBE TQ IADNA [address] JEREL 4 RONA RONA SPECIES MED CTR MED CTR DIRECT NURSING DIRECTOR ST NURSING DIRECTOR ST PROBE TQ IADNA [address] NEISSERIA 4 RONA RONA MED CTR MED CTR GONORRHOE NURSING DIRECTOR ST NURSING DIRECTOR ST AE AMPLIFIED PROBE TQ IADNA [address] CHLAMYDIA 4 RONA RONA MED CTR MED CTR TRACHOMAT NURSING DIRECTOR ST NURSING DIRECTOR ST IS AMPLIFIED PROBE TQ FTL [address] ST [address] FIBRONECT 4 RONA RONA IN MED CTR MED CTR CERVICOVA NURSING DIRECTOR ST NURSING DIRECTOR ST G SECRETION S SEMI-KELECHI IADNA [address] TRICHOMON 4 RONA RONA MED CTR MED CTR VAGINALIS NURSING DIRECTOR ST NURSING DIRECTOR ST DIRECT PROBE TQ SBSQ [address]952 ST [facility] OBSERVATI 4 RONA AGUILA ON CARE/DAY PHYSICIAN 15 S MINUTES INJECTION J2790 [address] ST RHO D IG 4 RONA RONA HUMAN MED CTR MED CTR FULL DOSE NURSING DIRECTOR ST NURSING DIRECTOR ST [address] JEREL 4 RONA RONA SPECIES MED CTR MED CTR DIRECT NURSING DIRECTOR ST [place] [address] 4 RONA RONA UTERUS 14 MED CTR MED CTR WK NURSING DIRECTOR ST NURSING DIRECTOR ST TRANSABDL GESTAT VAGINAL 74313 ST TERES[facility] DELIVERY 2 RONA DEB ONLY W/POSTPAR PHYSICIAN FERCHO CARE S [address] NONSTRESS 2 RONA RONA TEST MED CTR MED CTR NURSING DIRECTOR [place] [address] [facility] NONSTRESS 2 RONA AGUIAL TEST PHYSICIAN S INITIAL 80475 [facility] INPATIENT 2 MATERNAL DON CONSULT ME NEW/ESTAB PT 55 MIN Encounters Encounter Start End Date Code Location Performer Type Date HOSPITAL ST - OTHER 6 6 RONA MED CTR NURSING DIRECTOR [facility] T NURSING DIRECT[facility] EMERGENCY [address] 6 6 RONA DEPARTMEN MED CTR T VISIT [facility] 6 [facility] 6 6 [facility] OUTPATIEN MED CTR T NURSING DIRECTOR ST OFFICE [address]94 [facility] OUTPATIEN 6 6 RONA ISIDRO T VISIT 15 PHYSICIAN MINUTES S OFFICE 86972 [facility] OUTPATIEN 6 6 RONA AGUILA T VISIT 15 PHYSICIAN [address] [facility] [address] - 6 6 RONA OUTPATIEN MED CTR T NURSING DIRECTOR [facility] ST - 6 6 RONA OUTPATIEN MED CTR T NURSING DIRECTOR [facility] ST - 6 6 RONA OUTPATIEN MED CTR T NURSING DIRECTOR ST OFFICE 15270 ST URE[facility] OUTPATIEN 6 6 RONA ALL T VISIT 15 PHYSICIAN MINUTES [facility] - 6 6 RONA OUTPATIEN MED CTR T NURSING DIRECTOR [facility] ST - OTHER 5 5 RONA MED CTR NURSING DIRECTOR ST OFFICE 81898 [facility] OUTPATIEN 5 5 RONA IISDRO T VISIT 15 PHYSICIAN MINUTES [facility] - OTHER 5 5 RONA MED CTR NURSING DIRECTOR ST OFFICE 41736 [facility] OUTPATIEN 5 5 RONA ISIDRO T VISIT 15 PHYSICIAN MINUTES [facility] - 5 5 RONA OUTPATIEN MED CTR T [facility] ST OFFICE [address] [facility] OUTPATIEN 5 5 RONA AGUILA T VISIT 15 PHYSICIAN MINUTES [facility] - 5 5 RONA OUTPATIEN MED CTR T NURSING DIRECTOR ST OFFICE [address]93 [facility] OUTPATIEN 5 5 RONA AGUILA T VISIT 15 PHYSICIAN MINUTES [facility] - 5 5 RONA OUTPATIEN [facility] T OFFICE [address] [facility] OUTPATIEN 5 5 RONA AGUILA T VISIT 15 PHYSICIAN MINUTES [facility] ST - 5 5 RONA OUTPATIEN MED CTR T [facility] [place] ST - 5 5 RONA OUTPATIEN MED CTR T NURSING DIRECTOR OFFICE 64157 ST [facility] OUTPATIEN 5 5 RONA ALL T VISIT 15 PHYSICIAN [address] [facility] [address] - 5 5 RONA OUTPATIEN MED CTR T NURSING DIRECTOR [facility] ST - 5 5 RONA OUTPATIEN MED CTR T NURSING DIRECTOR OFFICE 20330 [facility] OUTPATIEN 5 5 RONA AGUILA T VISIT 15 PHYSICIAN MINUTES [facility] - 5 5 RONA OUTPATIEN MED CTR T NURSING DIRECTOR EMERGENCY 38232 [facility] PERDOMO 5 5 EMERGENCY JULIANA DEPARTMEN T VISIT PHYSICIAN [facility] ST - 5 5 RONA OUTPATIEN MED CTR T [facility] OFFICE [address] [facility] OUTPATIEN 5 5 RONA AGUILA T VISIT 15 PHYSICIAN [address] [facility] [address] - 5 5 RONA OUTPATIEN MED CTR T NURSING DIRECTOR OFFICE [address]5967 ST OUTPATIEN 5 5 RONA T VISIT MED CTR [address] [facility] OFF[facility] [address] [facility] RONA AGUILA T VISIT 15 PHYSIC[address] [facility] [address] - 5 5 RONA OUTPATIEN MED CTR T NURSING DIRECTOR ST OFFICE 49071 ST OUTPATIEN 5 5 RONA T VISIT MED CTR [address] MINUTES OFFICE 59380 [facility] OUTPATIEN 5 5 RONA ISIDRO T VISIT 15 PHYSICIAN MINUTES EMERGENCY 25813 ST 5 5 RONA DEPARTMEN MED CTR T VISIT NURSING DIRECTOR [facility] ST - 5 5 RONA OUTPATIEN MED CTR T [facility] OFFICE 15658 [facility] 5 5 RONA JAC T VISIT 15 PHYSICIAN [address] [facility] - 5 5 RONA OUTPATIEN MED CTR T [facility] EMERGENCY 30529 [facility]HAEL 5 5 EMERGENCY N JEZ DEPARTMEN T VISIT PHYSICIAN HIGH/URGE S NT SEVERITY HOSPITAL ST. - 5 5 RONA OUTPATIEN [facility] T EMERGENCY 32186 LENIN ARENAS JR 5 5 EMERGENCY FRANCO DEPARTMEN T VISIT PHYSICIAN HIGH/URGE S NT SEVERITY OFFICE 05950 [facility] 5 5 RONA VJ T VISIT 15 PHYSICIAN MINUTES [facility] - 5 5 RONA OUTPATIEN MED CTR T [facility] EMERGENCY 80190 ST. 5 5 RONA DEPARTMEN BELINDA T VISIT MODERATE SEVERITY HOSPITAL ST. - 5 5 RONA OUTPATIEN [place]DA T EMERGENCY 20225 LENIN HUERTAS 5 5 EMERGENCY DEPARTMEN T VISIT PHYSICIAN HIGH/URGE S NT SEVERITY EMERGENCY 49636 ST. 5 5 RONA DEPARTMEN GRACE T VISIT HIGH/URGE NT SEVERITY EMERGENCY 68643 [facility]ICK DEPT 5 5 EMERGENCY AMALIA VISIT HIGH PHYSICIAN SEVERITY& S [facility] ST. - 5 5 [facility] - 5 5 RONA OUTPATIEN MED CTR T [facility] [place] - 5 5 RONA OUTPATIEN MED CTR T [facility] [place] ST - 5 5 RONA OUTPATIEN MED CTR T [facility] OFFICE [address] [facility] OUTPATIEN 5 5 RONA G HECTOR T VISIT 15 PHYSICIAN MINUTES S OFFICE 91340 [facility] OUT[facility] 5 5 RONA G HECTOR T VISIT 15 PHYSICIAN MINUTES S EMERGENCY 11096 ST. 5 5 RONA DEPARTMEN BELINDA T VISIT LOW/MODER SEVERITY EMERGENCY 97187 [facility] 5 5 EMERGENCY KARISHMA DEPARTMEN T VISIT PHYSICIAN HIGH/URGE S NT [facility] ST. - 5 5 RONA OUTPATIEN [facility] ST - 4 4 RONA OUTPATIEN MED CTR T [facility] [address] [facility] OUTPATIEN 4 4 RONA RUBINA T VISIT 15 PHYSICIAN MINUTES [facility] ST - 4 4 RONA INPATIENT MED CTR [facility] [address] ST [facility] OUTPATIEN 4 4 RONA MAR T VISIT 15 PHYSICIAN MINUTES [facility] ST - 4 4 RONA OUTPATIEN MED CTR T [facility] [place] ST - 4 4 RONA OUTPATIEN MED CTR T [facility] [address] [facility] OUTPATIEN 4 4 RONA GAUILA T VISIT 15 PHYSICIAN MINUTES [facility] ST - 4 4 RONA OUTPATIEN MED CTR T [facility] [place] ST - 4 4 RONA OUTPATIEN MED CTR T [facility] [place] - 4 4 RONA OUTPATIEN MED CTR T [facility] [place] - 4 4 RONA OUTPATIEN MED CTR T [facility] [place] - 4 4 RONA OUTPATIEN MED CTR T [facility] [place] ST - 4 4 RONA OUTPATIEN MED CTR T NURSING DIRECTOR ST OFFICE 73951 [facility] OUTPATIEN 4 4 RONA LIS T VISIT 15 PHYSICIAN MINUTES S OFFICE 02954 [facility] OUTPATIEN 4 4 RONA LIS T VISIT 15 PHYSICIAN MINUTES [facility] ST - 2 2 RONA OUTPATIEN MED CTR T NURSING DIRECTOR ST OFFICE [address]16 ST OUTPATIEN 2 2 RONA T VISIT MED CTR [address] MINUTES
--- OUTSIDE RECORDS SUMMARY | 2017-05-20 22:46 | External Medical Summary Rpt ---
Author Author , IRENE Organization IRENE Address Unknown Phone [email or web address] Care Team Providers Care Youth Coordinator Name Role Phone MONCADA HECTOR, MONCADA HECTOR Unavailable Unavailable MONCADA HECTOR, MONCADA HECTOR Unavailable Unavailable BRIDGES MANNY, BRIDGES Unavailable Unavailable MANNY GONZALEZ AGUILA, Unavailable Unavailable GONZALEZ AGUILA [facility] Unavailable Unavailable PHYSICIANS, [facility] Unavailable Unavailable [facility], Unavailable [facility]available [facility] WILLIAN ERROL, Unavailable Unavailable WILLIAN ERROL CAREY ISIDRO, CAREY Unavailable Unavailable ISIDRO CAREY MAR, CAREY Unavailable Unavailable MAR HUEY LIS, MARGETON Unavailable Unavailable LIS TERESA DEB, TERESA Unavailable Unavailable DEB URENA ALL, URENA Unavailable Unavailable ALL GANSHIRT AGUILA, Unavailable Unavailable GANSHIRT AGUILA ELIO CH Unavailable Unavailable RUBINA HEEB CHR, HEEB CHR Unavailable Unavailable INDEPENDENT Unavailable Unavailable ANESTHESIOLOGIST, INDEPENDENT ANESTHESIOLOGIST OLY SIVAN, OLY SIVAN Unavailable Unavailable LAMBERS DON, LAMBERS Unavailable Unavailable DON LEAL VJ, Unavailable Unavailable LEAL VJ VALLE ISIDRO, VALEL Unavailable Unavailable ISIDRO VALLE ISIDRO, VALLE Unavailable Unavailable ISIDRO BUCKNER, BUCKNER Unavailable Unavailable BUCKNER BRA, BUCKNER Unavailable Unavailable BRA ARENAS JR FRANCO, ARENAS Unavailable Unavailable JR FRANCO NORA VJ, NORA Unavailable Unavailable [facility] Unavailable Unavailable LLC, [facility] Unavailable Unavailable LLC, [facility] ABEBA STORY, Unavailable Unavailable ABEBA PRINCE, THEE Unavailable Unavailable SURESH KINGSTON MAR, THEE Unavailable Unavailable MAR HERNANDEZ VJ, HERNANDEZ VJ Unavailable Unavailable HERNANDEZ ALEKSANDAR, HERNANDEZ ALEKSANDAR Unavailable Unavailable [facility], Unavailable Unavailable [facility] Unavailable Unavailable DOOR TECHNICIAN ST, [facility] DOOR TECHNICIAN ST [facility] Unavailable Un[facility] Un[facility] Unavailable [facility], Unavailable Unavailable [facility] DEUCE KARISHMA, Unavailable Unavailable STANFORTH KARISHMA STERNEBERG HECTOR, Unavailable Unavailable STERNEBERG HECTOR [employer] [facility], Unavailable Unavailable [employer], Unavailable Unavailable [facility] [facility] Unavailable Unavailable ME, [facility] KATYA SCO, KATYA SCO Unavailable Unavailable VON HOENE AMA, VON Unavailable Unavailable HOENE AMA JESUS DEW, JESUS DEW Unavailable Unavailable DERRICK AMALIA, DERRICK Unavailable Unavailable AMALIA Purpose Continuity of Care Document - 12-25-2011 through 2016 Problems Code Diagnosis DOS Provider Status N912 AMENORRHEA 03-23-2016 UNSPECIFIED [facility] DOOR TECHNICIAN ST [id number] ENCOUNTER 03-23-2016 ROUTINE R[facility] CHECKING IU MED CTR DOOR TECHNICIAN CONTRACEPT ST DEVICE W07037 ENCOUNTER 03-23-2016 ST REMOVAL [facility] INTRAUTERIN MED CTR DOOR TECHNICIAN E ST CONTRACEPT DEVICE Z0000 ENCOUNTER 01-19-2016 GEN ADULT [facility] MED EXAM PHYSICIANS W/O ABNORMAL FIND Z975 PRESENCE OF 01-19-2016 [facility] INTRAUTERIN PHYSICIANS E CONTRACEPTI VE DEVICE R079 CHEST PAIN 01-03-2016 UNSPECIFIED [facility]ONA MED CTR DOOR TECHNICIAN ST G66792 OTHER LONG 01-03-2016 TERM RONA CURRENT MED CTR DOOR TECHNICIAN DRUG ST THERAPY Z8249 FAMILY HX 01-03-2016 ISCHEMIC RONA HRT DZ OTH MED CTR DOOR TECHNICIAN DZ CIRC ST SYSTEM C93919 PERSONAL 01-03-2016 HISTORY OF [facility] NICOTINE MED CTR DOOR TECHNICIAN DEPENDENCE ST N921 EXCESS & 11-25-2015 FREQUENT RONA MENSTRUATIO PHYSICIANS N W/IRREGULAR CYCLE Q07621 ENCOUNTER 11-25-2015 ST. INITIAL RONA PRESCRIPTIO GRACE N INJECT CONTRACEPT Z3009 ENCOUNTER 11-22-2015 . OT GENERAL RONA GORMANENCE TAPE CONTROL SKIN OR SPAR MILL OPERATOR&ADV ICE CONTRACEPT O8612 ENDOMETRITI 11-13-2015 ST S FOLLOWING RONA DELIVERY PHYSICIANS Z3A39 39 [...] 11-12-2015 THEE MAR UNSPECIFIED Z392 ENCOUNTER 11-06-2015 FOR ROUTINE [facility] MED CTR DOOR TECHNICIAN FOLLOW-UP ST Z391 ENCNTR FOR 11-04-2015 [facility] LACTATING MOTHER O80 ENCOUNTER 11-02-2015 FOR [facility]ONA FULL-TERM PHYSICIANS UNCOMPLICAT ED DELIVERY Z370 SINGLE LIVE 11-02-2015 RONA PHYSICIANS Z3483 ENC 11-01-2015 SUPERVISION RONA OT NORMAL PHYSICIANS 3 TRIMESTER M39361 SUP PREG 10-25-2015 ST W/OTH POOR [facility] REPRODUCTIV MED CTR DOOR TECHNICIAN E/OB HX ST THIRD TRI E86538 OTHER SPEC 10-25-2015 ST [facility] RELATED PHYSICIANS COND 3RD TRIMESTER [id number] MATERNAL 10-25-2015 CARE ANTI-D RONA ANTIBODIES PHYSICIANS THIRD TRI NA/UNS O4700 FALSE LABOR 10-25-2015 ST BEFORE 37 RONA CMPLETE PHYSICIANS WEEKS GEST UNS TRI O471 FALSE LABOR 10-25-2015 ST AT/AFTER RONA 37 PHYSICIANS COMPLETED WEEKS GEST R443 HALLUCINATI 10-25-2015 ST ONS RONA UNSPECIFIED PHYSICIANS R51 HEADACHE 10-25-2015 RONA PHYSICIANS Z36 ENCOUNTER 10-25-2015 FOR [facility] MED CTR DOOR TECHNICIAN SCREENING ST OF MOTHER Z3A37 37 WEEKS 10-25-2015 ST GESTATION RONA OF PHYSICIANS Z3A38 38 WEEKS 10-25-2015 ST GESTATION RONA OF MED CTR DOOR TECHNICIAN ST O9989 OTH DZ & 10-22-2015 ST COND COMP RONA PREG MED CTR DOOR TECHNICIAN CHILDBIRTH ST PUERPERIUM Z749887 DECREASED 10-18-2015 RONA MOVEMENTS MED CTR DOOR TECHNICIAN THIRD ST TRIMESTER NA/UNS Z3A36 36 WEEKS 10-18-2015 ST GESTATION RONA OF MED CTR DOOR TECHNICIAN ST R300 DYSURIA 09-27-2015 RONA PHYSICIANS Z3A33 33 WEEKS 09-27-2015 ST GESTATION RONA OF PHYSICIANS B3749 OTHER 09-19-2015 ST UROGENITAL R[facility] CANDIDIASIS MED CTR DOOR TECHNICIAN ST N939 ABNORMAL 09-19-2015 ST UTERINE & RONA VAGINAL MED CTR DOOR TECHNICIAN BLEEDING ST UNSPECIFIED O4703 FALSE LABOR 09-19-2015 ST BEFORE 37 RONA CMPLETE MED CTR DOOR TECHNICIAN WEEKS GEST ST 3RD TRI H05377 OTH 09-19-2015 ST MATERNAL RONA INF & MED CTR DOOR TECHNICIAN PARASIT DZ ST COMP PREG 3RD TRI [...] WEEKS 08-25-2015 ST GESTATION RONA OF PHYSICIANS L34112 08-22-2015 [facility] LABR >24 HRS FLW RUPT 3RD TRI Z3A28 28 WEEKS 08-22-2015 [facility] OF O6003 08-20-2015 ST LABOR RONA WITHOUT MED CTR DOOR TECHNICIAN DELIVERY ST THIRD TRIMESTER N77725 OTHER SPEC 08-19-2015 ST [facility] RELATED MED CTR DOOR TECHNICIAN COND UNS ST TRIMESTER D764307 MATERNAL 08-17-2015 ST CARE ANTI-D [facility] ANTIBODIES MED CTR DOOR TECHNICIAN [address]ND [address] NA/UNS R440 AUDITORY 07-28-2015 ST HALLUCINATI RONA ONS PHYSICIANS R441 VISUAL 07-28-2015 ST HALLUCINATI RONA ONS PHYSICIANS Z3482 ENC 07-28-2015 ST SUPERVISION RONA OTH NORMAL PHYSICIANS 2 TRIMESTER Z3A25 25 WEEKS 07-28-2015 ST GESTATION RONA OF PHYSICIANS V221 SUPERVISION 06-29-2015 ST OF OTHER RONA NORMAL PHYSICIANS V232 06-29-2015 ST WITH ROAN HISTORY OF MED CTR DOOR TECHNICIAN ST V220 SUPERVISION 06-08-2015 ST OF NORMAL RONA FIRST PHYSICIANS 65180 OTHER 06-07-2015 ST SPECIFED RONA COMPLICATIO MED CTR DOOR TECHNICIAN N ST ANTEPARTUM 94887 FEVER 06-07-2015 ST UNSPECIFIED RONA MED [facility] DOOR [facility] ST 94384 UNS 06-03-2015 ST ABNORM MGMT RONA MOTH PHYSICIANS ANTPRTM COND/COMP 85030 MILD 06-02-2015 ST HYPEREMESIS RONA GRAVIDARUM PHYSICIANS UNSPEC EPIS CARE 84634 MILD 06-02-2015 ST HYPEREMESIS RONA GRAVIDARUM MED CTR DOOR TECHNICIAN ANTEPARTUM ST V2889 OTHER 06-02-2015 ST SPECIFIED [facility] MED CTR DOOR TECHNICIAN SCREENING ST 32153 UNSPECIFIED 05-02-2015 ST ANTEPARTUM RONA HEMORRHAGE MED CTR DOOR TECHNICIAN ANTEPARTUM ST V1582 PERS HX 05-02-2015 ST TOBACCO USE RONA PRESENTING MED CTR DOOR TECHNICIAN HAZARDS ST [facility] 1129 CANDIDIASIS 04-27-2015 ST OF RONA UNSPECIFIED PHYSICIANS SITE 462 ACUTE 04-27-2015 ST PHARYNGITIS RONA PHYSICIANS 463 ACUTE 04-27-2015 ST TONSILLITIS RONA PHYSICIANS 7881 DYSURIA 04-27-2015 ST RONA PHYSICIANS V222 04-27-2015 ST STATE, RONA INCIDENTAL PHYSICIANS 6235 LEUKORRHEA 03-30-2015 ST NOT RONA SPECIFIED PHYSICIANS INFECTIVE V7242 03-14-2015 ST EXAMINATION RONA OR TEST MED CTR DOOR TECHNICIAN POSITIVE ST RESULT 6259 UNSPEC 03-12-2015 [facility]ANS W/FEMALE GENITAL ORGANS 27339 OTH 03-06-2015 [facility] VENEREAL DISEASE ANTPRTM COND/COMPL 0549 HERPES 02-28-2015 [facility] WITHOUT PHYSICIANS MENTION OF COMPLICATIO N 6160 CERVICITIS 02-28-2015 [facility] AND [facility]ERGENCY ENDOCERVICI PHYSICIANS TIS 01161 GENERALIZED 02-23-2015 ST ANXIETY RONA DISORDER PHYSICIANS 08680 UNSPEC 02-08-2015 ST SPONTANEOUS RONA AB WITHOUT PHYSICIANS MENTION COMP 23558 UNSPEC 02-01-2015 [facility] SP[facility] AB [facility] COMP PHYSICIANS GENITAL TRACT&PELV INF 91573 COMPLETE 01-24-2015 ST. SPONTANEOUS RONA AB COMP GRACE DELAY/EXCES S HEMORR 66326 RHESUS 01-24-2015 ST. ISOIMMUN RONA AFFCT MGMT GRACE MOTH ANTPRTM COND 6260 ABSENCE OF 01-11-2015 ST MENSTRUATIO RONA N MED CTR DOOR TECHNICIAN ST V1589 OTH SPEC 01-07-2015 ST PERS HX RONA PRESENTING MED CTR DOOR TECHNICIAN HAZARDS ST [facility] OTH 5990 URINARY 12-29-2014 TRACT [facility]ONA INFECTION PHYSICIANS SITE NOT SPECIFIED 11006 HEMATURIA 12-29-2014 ST UNSPECIFIED RONA PHYSICIANS V741 SCREENING 11-04-2014 EXAMINATION [facility] FOR [facility] PULMONARY TUBERCULOSI S 5589 OTH&UNSPEC 10-26-2014 . NONINFECTIO [facility] GASTROENTER ITIS&COLITI S 94320 DIARRHEA 10-26-2014 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 38087 REFRACTIVE 09-28-2014 VALLE ISIDRO AMBLYOPIA 650 NORMAL 09-02-2014 INDEPENDENT DELIVERY ANESTHESIOL OGIST 17273 DECR 09-02-2014 ST MOVMNTS RONA MGMT MOTH MED CTR ANTPRTM COND/COMP 2859 UNSPECIFIED 09-01-2014 ST ANEMIA [facility] MED [facility] DOOR [place] [facility] 46740 MATERNAL 09-01-2014 ST ANEMIA RONA W/DELIVERY MED CTR DOOR TECHNICIAN W/CURRENT ST PPC 91043 DECR 09-01-2014 ST MOVEMENTS RONA AFFECT MGMT MED CTR DOOR TECHNIC[place] [address]761 PREMATURE 09-01-2014 ST RUPTURE RONA MEMB PG PHYSICIANS UNSPEC EPIS CARE 29587 PREMATURE 09-01-2014 ST RUPTURE [facility] MEMBRANES MED CTR DOOR TECHNICIAN ST DELIVERED 90220 ABN FETL 09-01-2014 ST HRT RONA RATE/RHYTHM MED CTR DOOR TECHNICIAN DELIV W/WO ST ANTPRTM COND 01319 HIGH 09-01-2014 ST VAGINAL RONA LACERATION MED CTR DOOR TECHNICIAN WITH ST DELIVERY 7823 EDEMA 09-01-2014 ST [facility] MED CTR DOOR TECHNICIAN ST V270 OUTCOME OF 09-01-2014 ST DELIVERY RONA SINGLE PHYSICIANS LIVEBORN 88696 OTHER 08-25-2014 ST THREATENED RONA LABOR, PHYSICIANS ANTEPARTUM 76143 RHESUS 08-25-2014 ST ISOIMMUNIZA RONA TION UNSPEC PHYSICIANS EPIS CARE PG V2389 SUPERVISION 08-25-2014 ST OF OTHER ORNA HIGH-RISK PHYSICIANS 33276 OTH CURRENT 08-16-2014 ST MAT CONDS RONA CLASSIFIABL MED CTR DOOR TECHNICIAN E ELSW ST ANTPRTM 1121 CANDIDIASIS 07-18-2014 ST OF VULVA RONA AND VAGINA MED CTR DOOR TECHNICIAN ST 00607 THREATENED 07-18-2014 ST PREMATURE RONA LABOR MED CTR DOOR TECHNICIAN ANTEPARTUM ST 69476 INFECTIONS 07-18-2014 ST OF RONA GENITOURINA MED CTR DOOR TECHNICIAN RY TRACT ST ANTEPARTUM V154 PERS HX 04-13-2014 DEPT FOR PSYCHOLOGIC PUBLIC TH AL TRAUMA PRS [facility] 89807 UNSPECIFIED 12-16-2013 ST VAGINITIS RONA AND PHYSICIANS VULVOVAGINI TIS V289 UNSPECIFIED 02-21-2012 ST RONA SCREENING MED CTR DOOR TECHNICIAN ST 71499 THREATENED 01-29-2012 ST PREMATURE RONA LABOR PHYSICIANS UNSPEC EPIS CARE 66794 PREMATURE 12-25-2011 [facility] MATERNAL OF [facility] ME ANTEPARTUM Procedures Procedure DOS Code Location Performer [place] [address] SURG 6 RONA [facility] PATHOLOGY MED CTR MED CTR GROSS DOOR TECHNICIAN ST DOOR TECHNICIAN ST EXAMINATI ON ONLY GONADOTRO [address] PIN 6 RONA RONA CHORIONIC GRACE GRACE QUANTITAT RONNIE LEVONORGE J7298 ST URENA STREL-RLS 6 RONA ALL INTRAUTER PHYSICIAN INE MOOKIE S SYS [address] METABOLIC 6 RONA RONA PANEL MED CTR MED CTR CALCIUM DOOR TECHNICIAN ST DOOR TECHNICIAN ST TOTAL COLLECTIO [address] N VENOUS 6 RONA RONA BLOOD MED CTR MED CTR VENIPUNCT DOOR TECHNICIAN ST DOOR TECHNICIAN ST URE RADIOLOGI 20598 SITA BUCKNER C EXAM 6 BRA BRA CHEST 2 VIEWS FRONTAL&L ATERAL ECG 79495 ST HEEB CHR ROUTINE 6 RONA ECG MED CTR W/LEAST 12 LDS [place] [address] TROPONIN 6 RONA RONA QUANTITAT MED CTR MED CTR RONNIE DOOR TECHNICIAN ST DOOR TECHNICIAN ST BLOOD [address] COUNT 6 RONA RONA COMPLETE MED CTR MED CTR AUTO&AUTO DOOR TECHNICIAN ST DOOR TECHNICIAN ST DIFRNTL WBC ECG [address] ROUTINE 6 RONA RONA ECG MED CTR MED CTR W/LEAST DOOR TECHNICIAN ST DOOR TECHNICIAN ST 12 LDS TRCG ONLY W/O I&R GONADOTRO [address] PIN 6 RONAKELLEE REA CHORIONIC GRACE GRACE QUANTITAT RONNIE THERAPEUT [address]1227 ST CAREY IC 6 RONA SURESH PROPHYLAC TIC/DX PHYSICIAN INJECTION S SUBQ/IM COLLECTIO [address] N VENOUS 6 RONAKELLEE REA BLOOD GRACE GRACE VENIPUNCT URE COLLECTIO [address] N VENOUS 6 RONA REA BLOOD GRACE GRACE VENIPUNCT URE GONADOTRO [address] PIN 6 RONAKELLEE REA CHORIONIC GRACE GRACE QUANTITAT RONNIE INITIAL 87592 [facility] 6 RONA SHEEHAN CARE/DAY 50 PHYSICIAN MINUTES S RADIOLOGI 47351 THEE THEE C EXAM 6 Dec CHEST 2 VIEWS FRONTAL&L ATERAL CRITICAL 21810 [facility] 6 EMERGENCY ILL/INJUR ED PHYSICIAN PATIENT S INIT 30-[address] OUTPATIEN 6 [facility] CTR VISIT DOOR TECHNICIAN ST DOOR TECHNICIAN ST ASSESS & MGMT PT BREAST E0603 PEDIATRIC PEDIATRIC PUMP 6 [facility] ANY TYPE VAGINAL [address]80 ST GANSHIRT DELIVERY 6 RONA AGUILA ONLY W/POSTPAR PHYSICIAN FERCHO CARE S NEURAXIAL 09206 ANESTHESI WILLIAN LABOR 6 A GROUP ERROL ANALG/ANE PRACTICE S PLND VAGINAL DELIVERY [facility] G0463 ST ST OUTPATIEN 6 [facility] CTR VISIT DOOR TECHNICIAN ST DOOR TECHNICIAN ST ASSESS & [place] [address] NONSTRESS 6 RONA RONA TEST MED CTR MED CTR DOOR TECHNICIAN ST DO[address] NONSTRESS 6 RONA RONA TEST MED CTR MED CTR DOOR TECHNICIAN ST DOOR TECHNICIAN ST HOSP[facility] G0463 ST ST OUTPATIEN 6 RONA RONA T CLIN MED CTR MED CTR VISIT DOOR TECHNICIAN ST DOOR TECHNICIAN ST ASSESS & MGMT PT HOSPITAL G0463 ST ST OUTPATIEN 6 RONA RONA T CLIN MED CTR MED CTR VISIT DOOR TECHNICIAN ST DOOR TECHNICIAN ST ASSESS & [place] [address] NONSTRESS 6 RONA RONA TEST MED CTR MED CTR DOOR TECHNICIAN ST DOOR TECHNICIAN ST SBSQ [address]61 ST GANSHIRT OBSERVATI 6 RONA AGUILA ON CARE/DAY PHYSICIAN [address] URENA NONSTRESS 6 RONA ALL TEST PHYSICIAN S [address] NONSTRESS 6 RONA RONA TEST MED CTR MED CTR DOOR TECHNICIAN ST DOOR TECHNICIAN ST HOSPITAL G0463 ST ST OUTPATIEN 6 RONA RONA T CLIN MED CTR MED CTR VISIT DOOR TECHNICIAN ST DOOR TECHNICIAN ST ASSESS & [place] [address] BIOPHYSIC 6 RONA RONA AL MED CTR MED CTR PROFILE DOOR TECHNICIAN ST DOOR TECHNICIAN ST W/O NON-STRES S TESTING IADNA [address] NEISSERIA 5 RONA RONA MED CTR MED CTR GONORRHOE DOOR TECHNICIAN ST DOOR TECHNICIAN ST AE AMPLIFIED PROBE TQ IADNA [address] ST [address] CHLAMYDIA 5 RONA RONA MED CTR MED CTR TRACHOMAT DOOR TECHNICIAN ST DOOR TECHNICIAN ST IS AMPLIFIED PROBE TQ IADNA [address] STREPTOCO 5 RONA RONA CCUS MED CTR MED CTR GROUP B DOOR TECHNICIAN ST DOOR TECHNICIAN ST AMPLIFIED PROBE TQ CULTURE [address] ST [address] BACTERIAL 5 RONA RONA MED CTR MED CTR QUANTTATI DOOR TECHNICIAN ST DOOR TECHNICIAN ST VE COLONY COUNT [facility] [facility] ST OUTPATIEN 5 RONA RONA T CLIN MED CTR MED CTR VISIT DOOR TECHNICIAN ST DOOR TECHNICIAN ST ASSESS & [place] [address] NONSTRESS 5 RONA RONA TEST MED CTR MED CTR DOOR TECHNICIAN ST DOOR TECHN[address] NONSTRESS 5 RONA RONA TEST MED CTR MED CTR DOOR TECHNICIAN ST DOOR TECHNICIAN HOSPITAL G0463 ST ST OUTPATIEN 5 RONA RONA T CLIN MED CTR MED CTR VISIT DOOR TECHNICIAN ST DOOR TECHNICIAN ST ASSESS & MGMT PT COLLECTIO [address] N VENOUS 5 RONA RONA BLOOD GRACE GRACE VENIPUNCT URE GLUCOSE [address] POST 5 RONA [place] [address] [facility] UTERUS LIMITED 1/> FETUSES FERN TEST Q0114 [facility] 5 RONA PHYSICIAN S SBSQ 97939 [facility] 5 RONA CARE/DAY 25 PHYSICIAN MINUTES S THERAPEUT [address] IC 5 RONA RONA PROPHYLAC MED CTR MED CTR TIC/DX DOOR TECHNICIAN ST DOOR TECHNICIAN ST INJECTION SUBQ/IM 39493 [facility] NONSTRESS 5 RONA TEST PHYSICIAN S HOSPITAL G0463 ST ST OUTPATIEN 5 RONA RONA T CLIN MED CTR MED CTR VISIT DOOR TECHNICIAN ST DOOR TECHNICIAN ST ASSESS & MGMT PT COMPATIBI [address] LITY EACH 5 RONA RONA UNIT MED CTR MED CTR ANTIGLOBU DOOR TECHNICIAN ST DOOR TECHNICIAN ST CHIQUIS THERAPEUT [address] IC 5 RONA RONA PROPHYLAC MED CTR MED CTR TIC/DX DOOR TECHNICIAN ST DOOR TECHNICIAN ST INJECTION SUBQ/[place] P[place] 93159 [facility] UTERUS 5 [facility] REAL TIME W/IMAGE DCMTN TRANSVAG 35844 [facility] [place] NONSTRESS 5 [place] [address] [facility] DEW 5 [facility] UTERUS LIMITED 1/> [place] [address] INFUSION 5 RONA RONA HYDRATION MED CTR MED CTR EACH DOOR TECHNICIAN ST DOOR TECHNICIAN ST ADDITIONA L HOUR ANTIBODY [address] TREPONEMA 5 RONA RONA PALLIDUM MED CTR MED CTR DOOR TECHNIC[place] [address] INFUSION 5 RONA RONA THERAPY/P MED CTR MED CTR ROPHYLAXI DOOR TECHNICIAN ST DOOR TECHNICIAN ST S /DX 1ST TO [address] [place] OBSERVATI 5 RONA AMA ON CARE/DAY PHYSICIAN 30 S MINUTES [facility]OSPITAL G0463 [facility] ST OUTPATIEN 5 RONA RONA T CLIN MED CTR MED CTR VISIT DOOR TECHNICIAN ST DOOR TECHNICIAN ST ASSESS & MGMT PT HOSPITAL G0463 ST ST OUTPATIEN 5 RONA RONA T CLIN MED CTR MED CTR VISIT DOOR TECHNICIAN ST DOOR TECHNICIAN ST ASSESS & MGMT PT CRYSTAL 38196 ST URENA ID LIGHT 5 RONA ALL MICROSCOP Y CARI PHYSICIAN TISS/ANY S FLUID 70417 ST URENA NONSTRESS 5 RONA ALL TEST PHYSICIAN S THERAPEUT [address] IC 5 RONA RONA PROPHYLAC MED CTR MED CTR TIC/DX DOOR TECHNICIAN ST DOOR TECHNICIAN ST INJECTION [place]Q/[place] P[place] [address] UTERUS 5 RONAKELLEE REA REAL TIME MED CTR MED CTR W/IMAGE DOOR TECHNICIAN ST DOOR TECHNICIAN ST DCMTN TRANSVAG IADNA [address] NEISSERIA 5 RONA RONA MED CTR MED CTR GONORRHOE DOOR TECHNICIAN ST DOOR TECHNICIAN ST AE AMPLIFIED PROBE TQ IADNA [address] CHLAMYDIA 5 RONA RONA MED CTR MED CTR TRACHOMAT DOOR TECHNICIAN ST DOOR TECHNICIAN ST IS AMPLIFIED PROBE TQ THERAPEUT [address] IC 5 RONA RONA PROPHYLAC MED CTR MED CTR TIC/DX DOOR TECHNICIAN ST DOOR TECHNICIAN ST INJECTION SUBQ/IM IADNA [address] TRICHOMON 5 RONA RONA MED CTR MED CTR VAGINALIS DOOR TECHNICIAN ST DOOR TECHNICIAN ST DIRECT PROBE TQ IADNA [address] CHLAMYDIA 5 RONA RONA MED CTR MED CTR TRACHOMAT DOOR TECHNICIAN ST DOOR TECHNICIAN ST IS AMPLIFIED PROBE TQ IADNA 406[address] ST ST JEREL 5 RONA RONA SPECIES MED CTR MED CTR DIRECT DOOR TECHNICIAN ST DOOR TECHNICIAN ST PROBE TQ IADNA [address] NEISSERIA 5 RONA RONA MED CTR MED CTR GONORRHOE DOOR TECHNICIAN ST DOOR TECHNICIAN ST AE AMPLIFIED PROBE TQ IADNA [address] GARDNEREL 5 RONA HALEBETH LA MED CTR MED CTR VAGINALIS DOOR TECHNICIAN ST DOOR TECHNICIAN ST [place] P[place] [address] UTERUS 5 RONA REA AFTER 1ST MED CTR MED CTR TRIMEST DOOR TECHNICIAN ST DOOR TECHNICIAN ST 1/1ST GESTATION SBSQ 28121 ST [facility] OBSERVATI 5 RONA SHEEHAN ON CARE/DAY PHYSICIAN 15 S MINUTES THER [address] PROPH/DX 5 RONA REA NJX IV MED CTR MED CTR PUSH DOOR TECHNICIAN ST DOOR TECHNICIAN ST SINGLE/1S T SBST/DRUG RINGERS J7120 ST ST LACTATE 5 RONA RONA INFUSION MED CTR MED CTR UP TO DOOR TECHNICIAN ST DOOR TECHNICIAN ST [address] TRICHOMON 5 RONA HALEBETH MED CTR MED CTR VAGINALIS DOOR TECHNICIAN ST DOOR TECHNICIAN ST DIRECT PROBE TQ IADNA [address] ST [address] NEISSERIA 5 RONA RONA MED CTR MED CTR GONORRHOE DOOR TECHNICIAN ST DOOR TECHNICIAN ST AE AMPLIFIED PROBE TQ IADNA [address] JEREL 5 RONA RONA SPECIES MED CTR MED CTR DIRECT DOOR TECHNICIAN ST DOOR TECHNICIAN ST PROBE TQ IADNA [address] CHLAMYDIA 5 RONA RONA MED CTR MED CTR TRACHOMAT DOOR TECHNICIAN ST DOOR TECHNICIAN ST IS AMPLIFIED PROBE TQ BLOOD [address] COUNT 5 RONA RONA COMPLETE MED CTR MED CTR AUTOMATED DOOR TECHNICIAN [place] [address] INFUSION 5 RONA RONA HYDRATION MED CTR MED CTR EACH DOOR TECHNICIAN ST DOOR TECHNICIAN ST ADDITIONA L HOUR COMPREHEN [address] SIVE 5 RONA REA METABOLIC MED CTR MED CTR PANEL DOOR TECHNICIAN ST DOOR TECHNICIAN ST URNLS DIP [address] 5 RONA REA STICK/TAB MED CTR MED CTR LET RGNT DOOR TECHNICIAN ST DOOR TECHNICIAN ST AUTO W/O MICROSCOP Y INJECTION J2405 ST ST 5 RONA REA ONDANSETR MED CTR MED CTR ON HCL DOOR TECHNICIAN ST DOOR TECHNICIAN ST PER 1 MG IADNA 74362 [facility] GARDNEREL 5 RONA REA LA MED CTR MED CTR VAGINALIS DOOR TECHNICIAN DOOR TECHNICIAN ST DIRECT PROBE TQ IAADIADOO 08860 [facility] 5 RONA REA STREPTOCO [facility] [place] [address] ST 5 RONA REA UTERUS 14 MED CTR MED CTR WK DOOR TECHNICIAN ST DOOR TECHNICIAN ST TRANSABDL GESTAT COLLECTIO [address] N VENOUS 5 RONA REA BLOOD GRACE GRACE VENIPUNCT URE GONADOTRO [address] ST[address] . PIN 5 RONA REA CHORIONIC [place] [address] [facility] VJ 5 W, LLC UTERUS 14 [place] P[place] [address] RADIOLOGY KATYA SCO UTERUS 5 REAL TIME ASSOCIATE W/IMAGE S OF NOT DCMTN TRANSVAG GONADOTRO [address] [facility] PIN 5 RONA REA CHORIONIC MED CTR MED CTR DOOR TECHNICIAN ST DOOR TECHNICIAN ST QUANTITAT RONNIE COLLECTIO 21795 HARTIG N VENOUS 5 RONA CESPEDES BLOOD VENIPUNCT PHYSICIAN URE S IADNA [address] CHLAMYDIA 5 RONA REA BELINDA BELINDA TRACHOMAT IS AMPLIFIED PROBE TQ ONDANSETR Q[address] ON 1 MG 5 RONA REA ORL NOT BELINDA BELINDA EXCEED 48 HR DOSE REG IADNA [address] . ST[address] NEISSERIA 5 CHICO RONA BELINDA BELINDA GONORRHOE AE AMPLIFIED PROBE TQ GONADOTRO [address] PIN 5 RONA RONA CHORIONIC BELINDA BELINDA QUANTITAT RONNIE COLLECTIO [address] . ST. N VENOUS 5 RONA RONA BLOOD BELINDA BELINDA VENIPUNCT URE IAADIADOO [address] [facility] BELINDA BELINDA VAGINALIS URNLS DIP [address] [facility] ST[facility]/TAB BELINDA BELINDA [place] [address] [facility] UTERUS 5 RONA REA REAL TIME MED CTR MED CTR W/IMAGE DOOR TECHNICIAN ST DO[place] [address] [facility] 5 RONA REA UTERUS 14 MED CTR MED CTR WK DOOR TECHNICIAN ST DOOR TECHNICIAN ST TRANSABDL GESTAT COLLECTIO 17096 [facility] N VENOUS 5 RONA REA BLOOD MED CTR MED CTR VENIPUNCT DOOR TECHNICIAN ST DOOR TECHNICIAN ST URE GONADOTRO 39691 [facility] PIN 5 RONA REA CHORIONIC MED CTR MED CTR DOOR TECHNICIAN ST DOOR TECHNICIAN ST QUANTITAT RONNIE IADNA 38578 [facility] TRICHOMON 5 RONA REA MED CTR MED CTR VAGINALIS DOOR TECHNICIAN ST DOOR TECHNICIAN ST DIRECT PROBE TQ CUL BACT 75719 ST AEROBIC 5 RONA REA ADDL MED CTR MED CTR METHS DOOR TECHNICIAN ST DOOR TECHNICIAN ST DEFINITIV E EA ISOL CULTURE 28389 ST BACTERIAL 5 RONA REA MED CTR MED CTR QUANTTATI DOOR TECHNICIAN ST DOOR TECHNICIAN ST VE COLONY COUNT URINE IADNA 10980 [facility] GARDNEREL 5 RONA REA LA MED CTR MED CTR VAGINALIS DOOR TECHNICIAN ST DOOR TECHNICIAN ST DIRECT PROBE TQ SUSCEPTIB 04109 ST LTY STDY 5 RONA REA ANTIMICRB MED CTR MED CTR IAL DOOR TECHNICIAN ST DOOR TECHNICIAN ST MICRO/AGA R DILUTJ IADNA [address] CHLAMYDIA 5 RONA RONA MED [facility] MED CTR TRACHOMAT DOOR TECHNICIAN ST DOOR TECHNICIAN ST IS AMPLIFIED PROBE TQ IADNA [address] JEREL 5 RONA RONA SPECIES MED CTR MED CTR DIRECT DOOR TECHNICIAN ST DOOR TECHNICIAN ST PROBE TQ IADNA [address] ST [address] NEISSERIA 5 RONA RONA MED CTR MED CTR GONORRHOE DOOR TECHNICIAN ST DOOR TECHNICIAN ST AE AMPLIFIED PROBE TQ URINE 12196 ST STERNEBER 5 RONA G HECTOR TEST VISUAL PHYSICIAN COLOR S CMPRSN METHS SKIN TEST [address]269 ST STERNEBER 5 RONA G HECTOR TUBERCULO SIS PHYSICIAN INTRADERM S AL IADNA [address] TRICHOMON 4 RONA RONA MED CTR MED CTR VAGINALIS DOOR TECHNICIAN ST DOOR TECHNICIAN ST DIRECT PROBE TQ IADNA [address] JEREL 4 RONA RONA SPECIES MED CTR MED CTR DIRECT DOOR TECHNICIAN ST DOOR TECHNICIAN ST PROBE TQ IADNA [address] [place] 4 [facility]ONA [facility] VAGINALIS DOOR TECHNICIAN ST DOOR TECHNICIAN ST DIRECT PROBE TQ FRAMES V2020 CORAL MURRIETA HECTOR PURCHASES 4 1 VISN V2103 CORAL MURRIETA HECTOR PLANO 4 TO+/-4.00 D SPHER 0.12-2.00 D CYL EA SCRATCH V2760 [facility] HECTOR MONCADA HECTOR RESISTANT 4 COATING PER LENS LENS V2784 MONCADA HECTOR MONCADA HECTOR POLYCARBO 4 REMI OR EQUAL ANY INDEX PER LENS OPHTH 52479 VALLE VALLE MEDICAL 4 ISIDRO FELIX XM&EVAL COMPRHNSV ESTAB PT 1/> FITTING 48633 VALLE VALLE SPECTACLE 4 ISIDRO FELIX S XCPT APHAKIA MONOFOCAL 1 VISN V2104 CORAL MURRIETA HECTOR PLANO-+/- 4 4.00D SPHER 2.12-4.00 D CYL EA NEURAXIAL 79942 [facility] LABOR 4 NT MANNY ANALG/ANE ANESTHESI S PLND OLOGIST VAGINAL DELIVERY VAGINAL [address] ST [facility] DELIVERY 4 RONA ROBERSON W/POSTPAR PHYSICIAN [place]ER[place] [address] ST LEAL SURG 4 RONA ZABALA PATHOLOGY MED CTR GROSS&JOSE E ROSCOPIC EXAM OTHER [address] MANUALLY 4 RONA REA ASSISTED MED CTR MED CTR DELIVERY DOOR TECHNICIAN ST [place] [address] OTHER 4 RONA REA CURRENT MED CTR MED CTR OBSTETRIC DOOR TECHNICIAN ST DOOR TECHNICIAN ST LACERATIO N OTHER [address] ARTIFICIA 4 RONA REA L RUPTURE MED CTR MED CTR OF DOOR TECHNICIAN ST DOOR TECHNICIAN ST MEMBRANES [address] NONSTRESS 4 RONA REA TEST PHYSICIAN PHYSICIAN S S CRYSTAL 34249 ST [facility] ID LIGHT 4 RONA CABRERA Y CARI PHYSICIAN TISS/ANY S FLUID [address]01 ST [facility] NONSTRESS 4 RONA MAR TEST PHYSICIAN S [address] NONSTRESS 4 RONA RNOA TEST MED CTR MED CTR DOOR TECHNICIAN ST DOOR TECHNICIAN ST IADNA [address] TRICHOMON 4 RONA HALEBETH MED CTR MED CTR VAGINALIS DOOR TECHNICIAN ST DOOR TECHNICIAN ST DIRECT PROBE TQ IADNA [address] GARDNEREL 4 RONA HALEBETH LA MED CTR MED CTR VAGINALIS DOOR TECHNICIAN ST DOOR TECHNICIAN ST DIRECT PROBE TQ IADNA [address] JEREL 4 RONA HALEBETH SPECIES MED CTR MED CTR DIRECT DOOR TECHNICIAN ST [place] [address] ST URENA NONSTRESS 4 RONA ALL TEST PHYSICIAN S INITIAL 62557 ST URENA OBSERVATI 4 RONA ALL ON CARE/DAY PHYSICIAN 30 S MINUTES URNLS DIP [address] 4 RONA RONA STICK/TAB MED CTR MED CTR LET DOOR TECHNICIAN ST DOOR TECHNICIAN ST REAGENT AUTO MICROSCOP Y [address] NONSTRESS 4 RONA RONA TEST MED CTR MED CTR DOOR TECHNICIAN ST DOOR TECHNICIAN ST IADNA [address] TRICHOMON 4 RONA REA MED CTR MED CTR VAGINALIS DOOR TECHNICIAN ST DOOR TECHNICIAN ST DIRECT PROBE TQ IADNA [address] NEISSERIA 4 RONA HALEBETH MED CTR MED CTR GONORRHOE DOOR TECHNICIAN ST DOOR TECHNICIAN ST AE AMPLIFIED PROBE TQ IADNA [address] JEREL 4 RONA HALEBETH SPECIES MED CTR MED CTR DIRECT DOOR TECHNICIAN ST DOOR TECHNICIAN ST PROBE TQ IADNA [address] CHLAMYDIA 4 RONA MERCADOTH MED CTR MED CTR TRACHOMAT DOOR TECHNICIAN ST DOOR TECHNICIAN ST IS AMPLIFIED PROBE TQ IADNA [address] GARDNEREL 4 RONA REA LA MED CTR MED CTR VAGINALIS DOOR TECHNICIAN ST DOOR TECHNICIAN ST DIRECT PROBE TQ FTL [address] FIBRONECT 4 RONA REA IN MED CTR MED CTR CERVICOVA DOOR TECHNICIAN ST DOOR TECHNICIAN ST G SECRETION S SEMI-KELECHI SBSQ 28765 ST [facility] OBSERVATI 4 RONA SHEEHAN ON CARE/DAY PHYSICIAN 15 S MINUTES INJECTION J2790 [address] ST RHO D IG 4 RONA REA HUMAN MED CTR MED CTR FULL DOSE DOOR TECHNICIAN ST DOOR TECHNICIAN ST [address] JEREL 4 RONA REA SPECIES MED CTR MED CTR DIRECT DOOR TECHNICIAN ST [place] [address] 4 RONA REA UTERUS 14 MED CTR MED CTR WK DOOR TECHNICIAN ST DOOR TECHNICIAN ST TRANSABDL / GESTAT VAGINAL [address] [facility] DELIVERY 2 RONA ROBERSON W/POSTPAR PHYSICIAN FERCHO CARE S [address] NONSTRESS 2 RONA REA TEST MED CTR MED CTR DOOR TECHNICIAN ST DO[place] ST [address] [facility] NONSTRESS 2 RONA SHEEHAN TEST PHYSICIAN S INITIAL 97817 [facility] INPATIENT 2 MATERNAL DON CONSULT ME NEW/ESTAB PT 55 MIN Encounters Encounter Start End Date Code Location Performer Type Date HOSPITAL ST - OTHER 6 6 RONA MED CTR DOOR TECHNICIAN [facility] ST. - 6 6 RONA OUTPATIEN [facility] EMERGENCY [address] ST 6 6 RONA DEPARTMEN MED CTR T VISIT DOOR TECHNICIAN [facility] ST - 6 6 RONA OUTPATIEN MED CTR T [facility] ST. - 6 6 RONA OUTPATIEN [facility] - 6 [facility] 6 RONA INPATIENT [facility] ST - 6 6 RONA OUTPATIEN MED CTR T [facility] OFFICE [address] ST C[facility] OUTPATIEN 6 6 RONA ISIDRO T VISIT 15 PHYSICIAN [facility] ST - 6 6 RONA OUTPATIEN MED CTR T [facility] ST OFFICE 14265 [facility] OUTPATIEN 6 6 RONA AGUILA T VISIT 15 PHYSICIAN [facility] ST - 6 6 RONA OUTPATIEN MED CTR T [facility] ST - 6 6 RONA OUTPATIEN MED CTR T [facility] ST OFFICE [address]16 ST URENA OUTPATIEN 6 6 RONA ALL T VISIT 15 PHYSICIAN [facility] ST - 6 6 RONA OUTPATIEN MED CTR T [facility] ST OFFICE 93239 ST [facility] OUTPATIEN 5 5 RONA ISIDRO T VISIT 15 PHYSICIAN [facility] ST - OTHER 5 5 RONA MED CTR [facility] ST OFFICE 39024 [facility] OUTPATIEN 5 5 RONA ISIDRO T VISIT 15 PHYSICIAN [facility] ST - OTHER 5 5 RONA MED CTR DOOR TECHNICIAN [facility] ST - 5 5 RONA OUTPATIEN MED CTR T [facility] OFFICE [address] [facility] OUTPATIEN 5 5 RONA AGUILA T VISIT 15 PHYSICIAN MINUTES S OFFICE 79514 [facility] OUTPATIEN 5 5 RONA AGUILA T VISIT 15 PHYSICIAN [address] [facility] [address] - 5 5 RONA OUTPATIEN MED CTR T [facility] OFFICE [address] [facility] RONA AGUILA T VISIT 15 PHYSICIAN [address] [facility] - 5 5 RONA OUTPATIEN [facility] ST - 5 5 RONA OUTPATIEN MED CTR T [facility] ST - 5 5 RONA OUTPATIEN MED CTR T [facility] OFFICE 03666 URENA OUTPATIEN 5 5 RONA ALL T VISIT 15 [facility]YSICIAN MINUT[facility] 5 5 RONA OUTPATIEN MED CTR T [facility] ST - 5 5 RONA OUTPATIEN MED CTR T [facility] OFFICE 86416 [facility] RONA AGUILA T VISIT 15 PHYSICIAN MINUTES S EMERGENCY 69139 ST 5 5 RONA DEPARTMEN MED CTR T VISIT DOOR TECHNICIAN [facility] ST - 5 5 RONA OUTPATIEN MED CTR T [facility] OFFICE [address] [facility] 5 RONA AGUILA T VISIT 15 PHYSICIAN MINUTES [facility] ST - 5 5 RONA OUTPATIEN MED CTR T [facility] [address]996 ST OUTPATIEN 5 5 RONA T VISIT MED CTR [address] [facility] ST - 5 5 RONA OUTPATIEN MED CTR T DOOR TECHNICIAN ST OFFICE [address] [facility] OUTPATIEN 5 5 RONA AGUILA T VISIT [address] [facility] - 5 5 RONA OUTPATIEN MED CTR T DOOR TECHNICIAN ST OFFICE 55828 ST OUTPATIEN 5 5 RONA T VISIT MED CTR [address] [facility] OFFICE [address] ST [facility] OUTPATIEN 5 5 RONA ISIDRO T VISIT 15 PHYSICIAN MINUTES S EMERGENCY 40904 ST 5 5 RONA DEPARTMEN MED CTR T VISIT DOOR TECHNICIAN [facility] SEVERITY [facility] ST - 5 5 RONA OUTPATIEN MED CTR T DOOR TECHNICIAN ST OFFICE 42211 [facility] OUTPATIEN 5 5 RONA AGUILA T VISIT [address] [facility] - 5 5 RONA OUTPATIEN MED CTR T DOOR TECHNICIAN EMERGENCY 70023 [facility] 5 5 EMERGENCY N JEZ DEPARTMEN T VISIT PHYSICIAN HIGH/URGE S [facility] ST. - 5 5 RONA OUTPATIEN [facility] EMERGENCY 00906 [facility] JR 5 5 EMERGENCY [place] DEPARTMEN T VISIT PHYSICIAN HIGH/URGE S NT SEVERITY OFFICE 67120 [facility] OUTPATIEN 5 5 RONA VJ T VISIT [address] - 5 5 RONA OUTPATIEN MED CTR T DOOR TECHNICIAN [facility] ST. - 5 5 RONA OUTPATIEN BEL[place]DA T EMERGENCY 37361 ST. 5 5 RONA DEPARTTYRA BELINDA T VISIT MODERATE SEVERITY EMERGENCY 71241 LENIN HUERTAS 5 5 EMERGENCY DEPARTMEN T VISIT PHYSICIAN HIGH/URGE S NT SEVERITY EMERGENCY 00037 LENIN MEZA DEPT 5 5 EMERGENCY AMALIA VISIT HIGH PHYSICIAN SEVERITY& S THREAT [facility] ST. - 5 5 RONA OUTPATIEN [facility] EMERGENCY 93754 ST. 5 5 RONA DEPARTMEN GRACE T VISIT HIGH/URGE NT SEVERITY HOSPITAL ST - 5 5 RONA OUTPATIEN MED CTR T [facility] ST - 5 5 RONA OUTPATIEN MED CTR T [facility] ST - 5 5 RONA OUTPATIEN MED CTR T [facility] OFFICE [address] [facility] [place] OUTPATIEN 5 5 RONA G HECTOR T VISIT 15 PHYSICIAN MINUTES S OFFICE [address]782 [facility] OUTPATIEN 5 5 RONA G HECTOR T VISIT 15 PHYSICIAN MINUTES S EMERGENCY 24458 ST. 5 5 RONA DEPARTMEN BELINDA T VISIT LOW/MODER SEVERITY HOSPITAL ST. - 5 5 RONA OUTPATIEN [place]DA T EMERGENCY 80765 LENIN TRIPATHI 5 5 EMERGENCY KARISHMA DEPARTMEN T VISIT PHYSICIAN HIGH/URGE S NT SEVERITY [facility]PITAL ST - 4 4 RONA OUTPATIEN MED CTR T [facility] OFFICE [address] ST HARTIG OUTPATIEN 4 4 RONA RUBINA T VISIT [address] PHYSIC[address] [facility] - 4 4 RONA INPATIENT MED CTR [facility] ST OFFICE 71228 ST [facility] OUTPATIEN 4 4 RONA MAR T VISIT [address] PHYS[address] [facility] - 4 4 RONA OUTPATIEN MED CTR T [facility] OFFICE 27071 [facility] OUTPATIEN 4 4 RONA AGUILA T VISIT 15 PHYSICIAN MINUTES [facility] ST - 4 4 RONA OUTPATIEN MED CTR T [facility] ST - 4 4 RONA OUTPATIEN MED CTR T [facility] ST - 4 4 RONA OUTPATIEN MED CTR T [facility] ST - 4 4 RONA OUTPATIEN MED CTR T [facility] ST - 4 4 RONA OUTPATIEN MED CTR T [facility] ST - 4 4 RONA OUTPATIEN MED CTR T [facility] ST - 4 4 RONA OUTPATIEN MED CTR T [facility] OFFICE 70476 [facility] OUTPATIEN 4 4 RONA LIS T VISIT 15 PHYSICIAN MINUTES S OFFICE 58966 [facility] OUTPATIEN 4 4 RONA LIS T VISIT 15 PHYSICIAN MINUTES [facility] ST - 2 2 RONA OUTPATIEN MED CTR T [facility] OFFICE 66519 ST OUTPATIEN 2 2 RONA T VISIT MED CTR 40 [facility]
--- OUTSIDE RECORDS SUMMARY | 2017-05-20 22:46 | External Medical Summary Rpt ---
Author Author , IRENE Organization IRENE Address Unknown Phone [email or web address] Care Team Providers Care Bone Char Operator Name Role Phone MONCADA HECTOR, MONCADA HECTOR Unavailable Unavailable MONCADA HECTOR, MONCADA HECTOR Unavailable Unavailable BRIDGES MANNY, BRIDGES Unavailable Unavailable MANNY GNOZALEZ AGUILA, Unavailable Unavailable GONZALEZ AUGILA [facility] Unavailable Unavailable PHYSICIANS, [facility] [...] HERNANDEZ ALEKSANDAR, HERNANDEZ ALEKSANDAR Unavailable Unavailable [facility], Unavailable Unavailable [facility] Unavailable Unavailable DESPATCHING AND RECEIVING CLERK ST, [facility] DESPATCHING AND RECEIVING CLERK [facility] Unavailable Unavailable [facility] Un[facility] Unavailable [facility], Unavailable Unavailable [facility] DEUCE KARISHMA, Unavailable Unavailable [facility] KARISHMA STERNEBERG HECTOR, Unavailable Unavailable STERNEBERG HECTOR [facility], Unavailable Unavailable [employer], Unavailable Unavailable [employer] [facility] Unavailable Unavailable [facility], [facility] KATYA SCO, KATYA SCO Unavailable Unavailable VON HOENE AMA, VON Unavailable Unavailable HOENE AMA JESUS DEW, JESUS DEW Unavailable Unavailable DERRICK AMALIA, DERRICK Unavailable Unavailable AMALIA Purpose Continuity of Care Document - 12-25-2011 through 2016 Problems Code Diagnosis DOS Provider Status N912 AMENORRHEA 03-23-2016 UNSPECIFIED [facility] DESPATCHING AND RECEIVING CLERK ST [id number] ENCOUNTER 03-23-2016 ROUTINE R[facility] CHECKING IU MED CTR DESPATCHING AND RECEIVING CLERK CONTRACEPT ST DEVICE [id number] ENCOUNTER 03-23-2016 ST REMOVAL [facility] INTRAUTERIN MED CTR DESPATCHING AND RECEIVING CLERK E ST CONTRACEPT DEVICE Z0000 ENCOUNTER 01-19-2016 GEN ADULT [facility] MED EXAM PHYSICIANS W/O ABNORMAL FIND Z975 PRESENCE OF 01-19-2016 [facility] INTRAUTERIN PHYSICIANS E CONTRACEPTI VE DEVICE R079 CHEST PAIN 01-03-2016 UNSPECIFIED [facility] CTR DESPATCHING AND RECEIVING CLERK ST R12911 OTHER LONG 01-03-2016 TERM [facility] CURRENT MED CTR DESPATCHING AND RECEIVING CLERK DRUG ST THERAPY Z8249 FAMILY HX 01-03-2016 ISCHEMIC RONA HRT DZ OTH MED CTR DESPATCHING AND RECEIVING CLERK DZ CIRC ST SYSTEM [id number] PERSONAL 01-03-2016 HISTORY OF [facility] NICOTINE MED CTR DESPATCHING AND RECEIVING CLERK DEPENDENCE ST N921 EXCESS & 11-25-2015 FREQUENT RONA MENSTRUATIO PHYSICIANS N W/IRREGULAR CYCLE [id number] ENCOUNTER 11-25-2015 ST. INITIAL RONA PRESCRIPTIO GRACE N INJECT CONTRACEPT Z3009 ENCOUNTER 11-22-2015 . OT GENERAL RONA GORMANENCE DECK SPECIALIST&ADV ICE CONTRACEPT O8612 ENDOMETRITI 11-13-2015 ST S [...] ENCOUNTER 11-06-2015 FOR ROUTINE [facility] DESPATCHING AND RECEIVING CLERK FOLLOW-UP ST Z391 ENCNTR FOR 11-04-2015 [facility] LACTATING MOTHER O80 ENCOUNTER 11-02-2015 FOR [facility] FULL-TERM PHYSICIANS UNCOMPLICAT ED DELIVERY Z370 SINGLE LIVE 11-02-2015 RONA PHYSICIANS Z3483 ENC 11-01-2015 SUPERVISION RONA OT NORMAL PHYSICIANS 3 TRIMESTER T42611 SUP PREG 10-25-2015 ST W/OTH POOR [facility] REPRODUCTIV MED CTR DESPATCHING AND RECEIVING CLERK E/OB HX ST THIRD TRI K20371 OTHER SPEC 10-25-2015 ST [facility] RELATED PHYSICIANS COND 3RD TRIMESTER [id number] MATERNAL 10-25-2015 CARE ANTI-D ROAN ANTIBODIES PHYSICIANS THIRD TRI NA/UNS O4700 FALSE LABOR 10-25-2015 ST BEFORE 37 RONA CMPLETE PHYSICIANS WEEKS GEST UNS TRI O471 FALSE LABOR 10-25-2015 ST AT/AFTER RONA 37 PHYSICIANS COMPLETED WEEKS GEST R443 HALLUCINATI 10-25-2015 ST ONS RONA UNSPECIFIED PHYSICIANS R51 HEADACHE 10-25-2015 RONA PHYSICIANS Z36 ENCOUNTER 10-25-2015 FOR [facility] CTR DESPATCHING AND RECEIVING CLERK SCREENING ST OF MOTHER Z3A37 37 WEEKS 10-25-2015 ST GESTATION RONA OF PHYSICIANS Z3A38 38 WEEKS 10-25-2015 ST GESTATION RONA OF MED CTR DESPATCHING AND RECEIVING CLERK ST O9989 OTH DZ & 10-22-2015 ST COND COMP RONA PREG MED CTR DESPATCHING AND RECEIVING CLERK [facility]ILDBIRTH ST PUERPERIUM A874306 DECREASED 10-18-2015 RONA MOVEMENTS MED CTR DESPATCHING AND RECEIVING CLERK THIRD ST TRIMESTER NA/UNS Z3A36 36 WEEKS 10-18-2015 ST GESTATION RONA OF MED CTR DESPATCHING AND RECEIVING CLERK ST R300 DYSURIA 09-27-2015 RONA PHYSICIANS Z3A33 33 WEEKS 09-27-2015 ST GESTATION RONA OF PHYSICIANS B3749 OTHER 09-19-2015 ST UROGENITAL RONA CANDIDIASIS MED CTR DESPATCHING AND RECEIVING CLERK ST N939 ABNORMAL 09-19-2015 ST UTERINE & RONA VAGINAL MED CTR DESPATCHING AND RECEIVING CLERK BLEEDING ST UNSPECIFIED O4703 FALSE LABOR 09-19-2015 ST BEFORE 37 RONA CMPLETE MED CTR DESPATCHING AND RECEIVING CLERK WEEKS GEST ST 3RD TRI V06231 OTH 09-19-2015 ST MATERNAL RONA INF & MED CTR DESPATCHING AND RECEIVING CLERK PARASIT DZ ST COMP PREG 3RD TRI [...] SPECIFIED Z3A29 29 WEEKS 08-25-2015 ST GESTATION ORNA OF PHYSICIANS T45236 08-22-2015 [facility] LABR >24 HRS FLW RUPT 3RD TRI Z3A28 28 WEEKS 08-22-2015 [facility] OF O6003 08-20-2015 ST LABOR RONA WITHOUT MED CTR DESPATCHING AND RECEIVING CLERK DELIVERY ST THIRD TRIMESTER C41851 OTHER SPEC 08-19-2015 ST [facility] RELATED MED CTR DESPATCHING AND RECEIVING CLERK COND UNS ST TRIMESTER V200496 MATERNAL 08-17-2015 ST CARE ANTI-D RONA ANTIBODIES MED CTR DESPATCHING AND RECEIVING CLERK [address]ND [address] NA/UNS R440 AUDITORY 07-28-2015 ST HALLUCINATI RONA ONS PHYSICIANS R441 VISUAL 07-28-2015 ST HALLUCINATI RONA ONS PHYSICIANS Z3482 ENC 07-28-2015 ST SUPERVISION RONA OTH NORMAL PHYSICIANS 2 TRIMESTER Z3A25 25 WEEKS 07-28-2015 ST GESTATION RONA OF PHYSICIANS V221 SUPERVISION 06-29-2015 ST OF OTHER RONA NORMAL PHYSICIANS V232 06-29-2015 ST WITH RONA HISTORY OF MED CTR DESPATCHING AND RECEIVING CLERK ST V220 SUPERVISION 06-08-2015 ST OF NORMAL RONA FIRST PHYSICIANS 27642 OTHER 06-07-2015 ST SPECIFED RONA COMPLICATIO MED CTR DESPATCHING AND RECEIVING CLERK N ST ANTEPARTUM 98110 FEVER 06-07-2015 ST UNSPECIFIED RONA MED CTR DESPATCHING AND RECEIVING CLERK ST 15239 UNS 06-03-2015 ST ABNORM MGMT RONA MOTH PHYSICIANS ANTPRTM COND/COMP 79077 MILD 06-02-2015 ST HYPEREMESIS RONA GRAVIDARUM PHYSICIANS UNSPEC EPIS CARE 84236 MILD 06-02-2015 ST HYPEREMESIS RONA GRAVIDARUM MED CTR DESPATCHING AND RECEIVING CLERK ANTEPARTUM ST V2889 OTHER 06-02-2015 ST SPECIFIED [facility] MED CTR DESPATCHING AND RECEIVING CLERK SCREENING ST 49593 UNSPECIFIED 05-02-2015 ST ANTEPARTUM RONA HEMORRHAGE MED CTR DESPATCHING AND RECEIVING CLERK ANTEPARTUM ST V1582 PERS HX 05-02-2015 ST TOBACCO USE RONA PRESENTING MED CTR DESPATCHING AND RECEIVING CLERK HAZARDS ST [facility] 1129 CANDIDIASIS 04-27-2015 ST OF RONA UNSPECIFIED PHYSICIANS SITE 462 ACUTE 04-27-2015 ST PHARYNGITIS RONA PHYSICIANS 463 ACUTE 04-27-2015 ST TONSILLITIS RONA PHYSICIANS 7881 DYSURIA 04-27-2015 ST RONA PHYSICIANS V222 04-27-2015 ST STATE, RONA INCIDENTAL PHYSICIANS 6235 LEUKORRHEA 03-30-2015 ST NOT RONA SPECIFIED PHYSICIANS INFECTIVE V7242 03-14-2015 ST EXAMINATION RONA OR TEST MED CTR DESPATCHING AND RECEIVING CLERK POSITIVE ST RESULT 6259 UNSPEC 03-12-2015 [facility]YS[facility]ANS W/FEMALE GENITAL ORGANS 40970 OTH 03-06-2015 [facility] VENEREAL DISEASE ANTPRTM COND/COMPL 0549 HERPES 02-28-2015 [facility] WITHOUT PHYSICIANS MENTION OF COMPLICATIO N 6160 CERVICITIS 02-28-2015 [facility] AND [facility]ERGENCY ENDOCERVICI PHYSICIANS TIS 71443 GENERALIZED 02-23-2015 ST ANXIETY RONA DISORDER PHYSICIANS 72534 UNSPEC 02-08-2015 ST SPONTANEOUS RONA AB WITHOUT PHYSICIANS MENTION COMP 80665 UNSPEC 02-01-2015 [facility] SP[facility] AB [facility]ERG[facility] COMP PHYSICIANS GENITAL TRACT&PELV INF 34556 COMPLETE 01-24-2015 ST. SPONTANEOUS RONA AB COMP GRACE DELAY/EXCES S HEMORR 55530 RHESUS 01-24-2015 ST. ISOIMMUN RONA AFFCT MGMT GRACE MOTH ANTPRTM COND 6260 ABSENCE OF 01-11-2015 ST MENSTRUATIO RONA N MED CTR DESPATCHING AND RECEIVING CLERK ST V1589 OTH SPEC 01-07-2015 ST PERS HX RONA PRESENTING MED CTR DESPATCHING AND RECEIVING CLERK HAZARDS [facility] OTH 5990 URINARY 12-29-2014 TRACT RONA INFECTION PHYSICIANS SITE NOT SPECIFIED 64466 HEMATURIA 12-29-2014 ST UNSPECIFIED RONA PHYSICIANS V741 SCREENING 11-04-2014 EXAMINATION [facility] FOR PHYSICIANS PULMONARY TUBERCULOSI S 5589 OTH&UNSPEC 10-26-2014 . NONINFECTIO [facility] GASTROENTER ITIS&COLITI S 48106 DIARRHEA 10-26-2014 ST. RADISSON BELIN[facility] 75797 OTHER 10-11-2014 ANXIETY [facility] PHYSICIANS 3670 HYPERMETROP 09-28-2014 [place] 3671 MYOPIA 09-28-2014 MONCADA HECTOR 29377 REGULAR 09-28-2014 VALLE ISIDRO ASTIGMATISM 14426 REFRACTIVE 09-28-2014 VALLE ISIDRO AMBLYOPIA 650 NORMAL 09-02-2014 INDEPENDENT DELIVERY ANESTHESIOL OGIST 70472 DECR 09-02-2014 ST MOVMNTS RONA MGMT MOTH MED CTR ANTPRTM COND/COMP 2859 UNSPECIFIED 09-01-2014 ST ANEMIA RONA MED CTR DESPATCHING AND RECEIVING [place]ERK [place] 66148 MATERNAL 09-01-2014 ST ANEMIA RONA W/DELIVERY MED CTR DESPATCHING AND RECEIVING CLERK W/CURRENT ST PPC 38011 DECR 09-01-2014 ST MOVEMENTS RONA AFFECT MGMT MED CTR DESPATCHING AND RECEIVING CLERK [place] [address] PREMATURE 09-01-2014 ST RUPTURE RONA MEMB PG PHYSICIANS UNSPEC EPIS CARE 95790 PREMATURE 09-01-2014 ST RUPTURE RONA MEMBRANES MED CTR DESPATCHING AND RECEIVING CLERK ST DELIVERED 00672 ABN FETL 09-01-2014 ST HRT RONA RATE/RHYTHM MED CTR DESPATCHING AND RECEIVING CLERK DELIV W/WO ST ANTPRTM COND 45092 HIGH 09-01-2014 ST VAGINAL RONA LACERATION MED CTR DESPATCHING AND RECEIVING CLERK WITH ST DELIVERY 7823 EDEMA 09-01-2014 ST RONA MED CTR DESPATCHING AND RECEIVING CLERK ST V270 OUTCOME OF 09-01-2014 ST DELIVERY RONA SINGLE PHYSICIANS LIVEBORN 23317 OTHER 08-25-2014 ST THREATENED RONA LABOR, PHYSICIANS ANTEPARTUM 03199 RHESUS 08-25-2014 ST ISOIMMUNIZA RONA TION UNSPEC PHYSICIANS EPIS CARE PG V2389 SUPERVISION 08-25-2014 ST OF OTHER RONA HIGH-RISK PHYSICIANS 19714 OTH CURRENT 08-16-2014 ST MAT CONDS RONA CLASSIFIABL MED CTR DESPATCHING AND RECEIVING CLERK E ELSW ST ANTPRTM 1121 CANDIDIASIS 07-18-2014 ST OF VULVA RONA AND VAGINA MED CTR DESPATCHING AND RECEIVING CLERK ST 21973 THREATENED 07-18-2014 ST PREMATURE RONA LABOR MED CTR DESPATCHING AND RECEIVING CLERK ANTEPARTUM ST [address]38 INFECTIONS 07-18-2014 ST OF RONA GENITOURINA MED CTR DESPATCHING AND RECEIVING CLERK RY TRACT ST ANTEPARTUM V154 PERS HX 04-13-2014 DEPT FOR PSYCHOLOGIC PUBLIC TH AL TRAUMA PRS [facility] 75768 UNSPECIFIED 12-16-2013 ST VAGINITIS RONA AND PHYSICIANS VULVOVAGINI TIS V289 UNSPECIFIED 02-21-2012 ST RONA SCREENING MED CTR DESPATCHING AND RECEIVING CLERK ST 49702 THREATENED 01-29-2012 ST PREMATURE RONA LABOR PHYSICIANS UNSPEC EPIS CARE 15838 PREMATURE 12-25-2011 [facility] MATERNAL OF PLAC[facility] ME ANTEPARTUM Procedures Procedure DOS Code Location Performer [place] [address] SURG 6 RONA RONA PATHOLOGY MED CTR MED CTR GROSS DESPATCHING AND RECEIVING CLERK ST DESPATCHING AND RECEIVING CLERK ST EXAMINATI ON ONLY GONADOTRO [address] PIN 6 RONA RONA CHORIONIC GRACE GRACE QUANTITAT RONNIE LEVONORGE J7298 ST URENA STREL-RLS 6 RONA ALL INTRAUTER PHYSICIAN INE MOOKIE S SYS [address] METABOLIC 6 RONA RONA PANEL MED CTR MED CTR CALCIUM DESPATCHING AND RECEIVING CLERK ST DESPATCHING AND RECEIVING CLERK ST TOTAL COLLECTIO [address] N VENOUS 6 RONA RONA BLOOD MED CTR MED CTR VENIPUNCT DESPATCHING AND RECEIVING CLERK ST DESPATCHING AND RECEIVING CLERK ST URE RADIOLOGI 38449 SITA BUCKNER C EXAM 6 BRA BRA CHEST 2 VIEWS FRONTAL&L ATERAL ECG 12264 ST HEEB CHR ROUTINE 6 RONA ECG MED CTR W/LEAST 12 LDS I&[place] [address] TROPONIN 6 RONA RONA QUANTITAT MED CTR MED CTR RONNIE DESPATCHING AND RECEIVING CLERK ST DESPATCHING AND RECEIVING CLERK ST BLOOD [address] COUNT 6 RONA RONA COMPLETE MED CTR MED CTR AUTO&AUTO DESPATCHING AND RECEIVING CLERK ST DESPATCHING AND RECEIVING CLERK ST DIFRNTL WBC ECG [address] ROUTINE 6 RONA RONA ECG MED CTR MED CTR W/LEAST DESPATCHING AND RECEIVING CLERK ST DESPATCHING AND RECEIVING CLERK ST 12 LDS TRCG ONLY W/O I&R GONADOTRO [address] PIN 6 RONAKELLEE REA CHORIONIC GRACE GRACE QUANTITAT RONNIE THERAPEUT 60174 ST CAREY IC 6 RONA SURESH PROPHYLAC TIC/DX PHYSICIAN INJECTION S SUBQ/IM COLLECTIO [address] N VENOUS 6 RONAKELLEE REA BLOOD GRACE GRACE VENIPUNCT URE COLLECTIO [address] N VENOUS 6 RONA REA BLOOD GRACE GRACE VENIPUNCT URE GONADOTRO [address] PIN 6 RONAKELLEE REA CHORIONIC GRACE GRACE QUANTITAT RONNIE INITIAL 29302 [facility] 6 RONA SHEEHAN CARE/DAY 50 PHYSICIAN MINUTES S RADIOLOGI 01413 THEE THEE C EXAM 6 Dec CHEST 2 VIEWS FRONTAL&L ATERAL CRITICAL 00936 [facility] SYSTEM 6 EMERGENCY ILL/INJUR ED PHYSICIAN PATIENT S INIT 30-[address] OUTPATIEN 6 RONA MERCADOTH T CLIN MED CTR MED CTR VISIT DESPATCHING AND RECEIVING CLERK ST DESPATCHING AND RECEIVING CLERK ST ASSESS & MGMT PT BREAST E0603 PEDIATRIC PEDIATRIC PUMP 6 [email or web address] [facility] ANY TYPE VAGINAL [address]73 ST [facility] DELIVERY 6 RONA AGUILA ONLY W/POSTPAR PHYSICIAN FERCHO CARE S NEURAXIAL 26042 ANESTHESI WILLIAN LABOR 6 A GROUP ERROL ANALG/ANE PRACTICE S PLND VAGINAL DELIVERY [facility] G0463 ST ST OUTPATIEN 6 RONA MERCADOTH T CLIN MED CTR MED CTR VISIT DESPATCHING AND RECEIVING CLERK ST DESPATCHING AND RECEIVING [place] ST ASSESS & [place] [address] NONSTRESS 6 RONA RONA TEST MED CTR MED CTR DESPATCHING AND RECEIVING CLERK ST DESPATCHING [place] [address] NONSTRESS 6 RONA RONA TEST MED CTR MED CTR DESPATCHING AND RECEIVING CLERK ST DESPATCHING AND RECEIVING CLERK ST [facility] G0463 ST ST OUTPATIEN 6 RONA RONA T CLIN MED CTR MED CTR VISIT DESPATCHING AND RECEIVING CLERK ST DESPATCHING AND RECEIVING CLERK ST ASSESS & MGMT PT HOSPITAL G0463 ST ST OUTPATIEN 6 RONA RONA T CLIN MED CTR MED CTR VISIT DESPATCHING AND RECEIVING CLERK ST DESPATCHING AND RECEIVING CLERK ST ASSESS & [place] [address] NONSTRESS 6 RONA RONA TEST MED CTR MED CTR DESPATCHING AND RECEIVING CLERK ST DESPATCHING AND RECEIVING CLERK ST SBSQ [address] [facility] OBSERVATI 6 RONA AGUILA ON CARE/DAY PHYSICIAN [address] URENA NONSTRESS 6 RONA ALL TEST PHYSICIAN S [address] NONSTRESS 6 RONA RONA TEST MED CTR MED CTR DESPATCHING AND RECEIVING CLERK ST DESPATCHING AND RECEIVING CLERK ST [facility]OS[facility] G0463 ST ST OUTPATIEN 6 RONA RONA T CLIN MED CTR MED CTR VISIT DESPATCHING AND RECEIVING CLERK ST DESPATCHING AND RECEIVING CLERK ST ASSESS & [place] [address] BIOPHYSIC 6 RONA RONA AL MED CTR MED CTR PROFILE DESPATCHING AND RECEIVING CLERK ST DESPATCHING AND RECEIVING CLERK ST W/O NON-STRES S TESTING IADNA [address] NEISSERIA 5 RONA RONA MED CTR MED CTR GONORRHOE DESPATCHING AND RECEIVING CLERK ST DESPATCHING AND RECEIVING CLERK ST AE AMPLIFIED PROBE TQ IADNA [address] CHLAMYDIA 5 RONA RONA MED CTR MED CTR TRACHOMAT DESPATCHING AND RECEIVING CLERK ST DESPATCHING AND RECEIVING CLERK ST IS AMPLIFIED PROBE TQ IADNA [address] STREPTOCO 5 RONA RONA CCUS MED CTR MED CTR GROUP B DESPATCHING AND RECEIVING CLERK ST DESPATCHING AND RECEIVING CLERK ST AMPLIFIED PROBE TQ CULTURE [address] BACTERIAL 5 RONA RONA MED CTR MED CTR QUANTTATI DESPATCHING AND RECEIVING CLERK ST DESPATCHING AND RECEIVING CLERK ST [facility] G0463 ST ST OUTPATIEN 5 RONA RONA T CLIN MED CTR MED CTR VISIT DESPATCHING AND RECEIVING CLERK ST DESPATCHING AND RECEIVING CLERK ST ASSESS & [place] [address] NONSTRESS 5 RONA RONA TEST MED CTR MED CTR DESPATCHING AND RECEIVING CLERK ST DESPATCHING AND [place] [address] NONSTRESS 5 RONA RONA TEST MED CTR MED CTR DESPATCHING AND RECEIVING CLERK ST DESPATCHING AND RECEIVING CLERK HOSPITAL G0463 ST ST OUTPATIEN 5 RONA RONA T CLIN MED CTR MED CTR VISIT DESPATCHING AND RECEIVING CLERK ST DESPATCHING AND RECEIVING CLERK ST ASSESS & MGMT PT COLLECTIO [address] N VENOUS 5 RONA RONA BLOOD GRACE GRACE VENIPUNCT URE GLUCOSE [address] [facility] 5 RONA [place] [address] [facility] [facility] UTERUS LIMITED 1/> FETUSES FERN TEST Q0114 [facility] 5 RONA PHYSICIAN S SBSQ 04172 [facility] 5 RONA CARE/DAY 25 PHYSICIAN MINUTES S THERAPEUT [address] IC 5 RONA RONA PROPHYLAC MED CTR MED CTR TIC/DX DESPATCHING AND RECEIVING CLERK ST DESPATCHING AND RECEIVING CLERK ST INJECTION SUBQ/IM 47829 [facility] NONSTRESS 5 RONA TEST PHYSICIAN S HOSPITAL G0463 ST ST OUTPATIEN 5 RONA RONA T CLIN MED CTR MED CTR VISIT DESPATCHING AND RECEIVING CLERK ST DESPATCHING AND RECEIVING CLERK ST ASSESS & MGMT PT COMPATIBI [address] LITY EACH 5 RONA RONA UNIT MED CTR MED CTR ANTIGLOBU DESPATCHING AND RECEIVING CLERK ST DESPATCHING AND RECEIVING CLERK ST CHIQUIS THERAPEUT [address] IC 5 RONA RONA PROPHYLAC MED CTR MED CTR TIC/DX DESPATCHING AND RECEIVING CLERK ST DESPATCHING AND RECEIVING CLERK ST [place] P[place] 03637 [facility] UTERUS 5 [facility] REAL TIME W/IMAGE DCMTN TRANSVAG [address] [facility] [place] NONSTRESS 5 [place] [address] [facility] 5 [facility] [facility] UTERUS LIMITED 1/> [place] [address] INFUSION 5 RONA RONA HYDRATION MED CTR MED CTR EACH DESPATCHING AND RECEIVING CLERK ST DESPATCHING AND RECEIVING CLERK ST ADDITIONA L HOUR ANTIBODY [address] TREPONEMA 5 RONA RONA PALLIDUM MED CTR MED CTR DESPATCHING AND RECEIVING CLERK ST DESPATCHING [place] [address] INFUSION 5 RONA RONA THERAPY/P MED CTR MED CTR ROPHYLAXI DESPATCHING AND RECEIVING CLERK ST DESPATCHING AND RECEIVING CLERK ST S /DX 1ST TO [address] [place] OBSERVATI 5 RONA AMA ON CARE/DAY PHYSICIAN 30 S MINUTES [facility]OSPITAL G0463 [facility] ST OUTPATIEN 5 RONA RONA T CLIN MED CTR MED CTR VISIT DESPATCHING AND RECEIVING CLERK ST DESPATCHING AND RECEIVING CLERK ST ASSESS & MGMT PT HOSPITAL G0463 ST ST OUTPATIEN 5 RONA RONA T CLIN MED CTR MED CTR VISIT DESPATCHING AND RECEIVING CLERK ST DESPATCHING AND RECEIVING CLERK ST ASSESS & MGMT PT CRYSTAL 82286 ST URENA ID LIGHT 5 RONA ALL MICROSCOP Y CARI PHYSICIAN TISS/ANY S FLUID 06999 ST URENA NONSTRESS 5 RONA ALL TEST PHYSICIAN S THERAPEUT [address] IC 5 RONA RONA PROPHYLAC MED CTR MED CTR TIC/DX DESPATCHING AND RECEIVING CLERK ST DESPATCHING AND RECEIVING CLERK ST INJECTION SUBQ/[place] PREG [address] UTERUS 5 RONAKELLEE REA REAL TIME MED CTR MED CTR W/IMAGE DESPATCHING AND RECEIVING CLERK ST DESPATCHING AND RECEIVING CLERK ST DCMTN TRANSVAG IADNA [address] NEISSERIA 5 RONA RONA MED CTR MED CTR GONORRHOE DESPATCHING AND RECEIVING CLERK ST DESPATCHING AND RECEIVING CLERK ST AE AMPLIFIED PROBE TQ IADNA [address] CHLAMYDIA 5 RONA RONA MED CTR MED CTR TRACHOMAT DESPATCHING AND RECEIVING CLERK ST DESPATCHING AND RECEIVING CLERK ST IS AMPLIFIED PROBE TQ THERAPEUT [address] IC 5 RONA RONA PROPHYLAC MED CTR MED CTR TIC/DX DESPATCHING AND RECEIVING CLERK ST DESPATCHING AND RECEIVING CLERK ST INJECTION SUBQ/IM IADNA [address] TRICHOMON 5 RONA RONA MED CTR MED CTR VAGINALIS DESPATCHING AND RECEIVING CLERK ST DESPATCHING AND RECEIVING CLERK ST DIRECT PROBE TQ IADNA [address] CHLAMYDIA 5 RONA RONA MED CTR MED CTR TRACHOMAT DESPATCHING AND RECEIVING CLERK ST DESPATCHING AND RECEIVING CLERK ST IS AMPLIFIED PROBE TQ IADNA [address] JEREL 5 RONA RONA SPECIES MED CTR MED CTR DIRECT DESPATCHING AND RECEIVING CLERK ST DESPATCHING AND RECEIVING CLERK ST PROBE TQ IADNA [address] NEISSERIA 5 RONA RONA MED CTR MED CTR GONORRHOE DESPATCHING AND RECEIVING CLERK ST DESPATCHING AND RECEIVING CLERK ST AE AMPLIFIED PROBE TQ IADNA [address] GARDNEREL 5 RONA HALEBETH LA MED CTR MED CTR VAGINALIS DESPATCHING AND RECEIVING CLERK ST DESPATCHING AND RECEIVING CLERK ST DIRECT PROBE TQ [place] PREG [address] UTERUS 5 RONA REA AFTER 1ST MED CTR MED CTR TRIMEST DESPATCHING AND RECEIVING CLERK ST DESPATCHING AND RECEIVING CLERK ST 1/1ST GESTATION SBSQ [address] [facility] OBSERVATI 5 RONA SHEEHAN ON CARE/DAY PHYSICIAN 15 S MINUTES THER [address] PROPH/DX 5 RONA ERA NJX IV MED CTR MED CTR PUSH DESPATCHING AND RECEIVING CLERK ST DESPATCHING AND RECEIVING CLERK ST SINGLE/1S T SBST/DRUG RINGERS J7120 ST ST LACTATE 5 RONA RONA INFUSION MED CTR MED CTR UP TO DESPATCHING AND RECEIVING CLERK ST DESPATCHING AND RECEIVING CLERK ST [address] TRICHOMON 5 RONA HALEBETH MED CTR MED CTR VAGINALIS DESPATCHING AND RECEIVING CLERK ST DESPATCHING AND RECEIVING CLERK ST DIRECT PROBE TQ IADNA [address] NEISSERIA 5 RONA RONA MED CTR MED CTR GONORRHOE DESPATCHING AND RECEIVING CLERK ST DESPATCHING AND RECEIVING CLERK ST AE AMPLIFIED PROBE TQ IADNA [address] JEREL 5 RONA RONA SPECIES MED CTR MED CTR DIRECT DESPATCHING AND RECEIVING CLERK ST DESPATCHING AND RECEIVING CLERK ST PROBE TQ IADNA [address] CHLAMYDIA 5 RONA RONA MED CTR MED CTR TRACHOMAT DESPATCHING AND RECEIVING CLERK ST DESPATCHING AND RECEIVING CLERK ST IS AMPLIFIED PROBE TQ BLOOD [address] COUNT 5 RONA RONA COMPLETE MED CTR MED CTR AUTOMATED DESPATCHING AND RECEIVING CLERK ST DESPATCHING [place] [address] INFUSION 5 RONA RONA HYDRATION MED CTR MED CTR EACH DESPATCHING AND RECEIVING CLERK ST DESPATCHING AND RECEIVING CLERK ST ADDITIONA L HOUR COMPREHEN [address] SIVE 5 RONA REA METABOLIC MED CTR MED CTR PANEL DESPATCHING AND RECEIVING CLERK ST DESPATCHING AND RECEIVING CLERK ST URNLS DIP [address] 5 RONA REA STICK/TAB MED CTR MED CTR LET RGNT DESPATCHING AND RECEIVING CLERK ST DESPATCHING AND RECEIVING CLERK ST AUTO W/O MICROSCOP Y INJECTION J2405 ST ST 5 RONA REA ONDANSETR MED CTR MED CTR ON HCL DESPATCHING AND RECEIVING CLERK ST DESPATCHING AND RECEIVING CLERK ST PER 1 MG IADNA 01624 [facility] GARDNEREL 5 RONA REA LA MED CTR MED CTR VAGINALIS DESPATCHING AND RECEIVING CLERK DESPATCHING AND RECEIVING CLERK ST DIRECT PROBE TQ IAADIADOO 19003 [facility] 5 RONA REA STREPTOCO [facility] [place] [address] ST 5 RONA REA UTERUS 14 MED CTR MED CTR WK DESPATCHING AND RECEIVING CLERK ST DESPATCHING AND RECEIVING CLERK ST TRANSABDL GESTAT COLLECTIO [address] N VENOUS 5 RONA REA BLOOD GRACE GRACE VENIPUNCT URE GONADOTRO [address] ST[address] . PIN 5 RONA REA CHORIONIC [place] [address] [facility] VJ 5 W, LLC UTERUS 14 WK [place] P[place] [address] RADIOLOGY KATYA SCO UTERUS 5 REAL TIME ASSOCIATE W/IMAGE S OF NOT DCMTN TRANSVAG GONADOTRO 73351 [facility] PIN 5 RONA REA CHORIONIC MED CTR MED CTR DESPATCHING AND RECEIVING CLERK ST DESPATCHING AND RECEIVING CLERK ST QUANTITAT RONNIE COLLECTIO 15160 HARTIG N VENOUS 5 RONA CESPEDES BLOOD VENIPUNCT PHYSICIAN URE S IADNA [address] CHLAMYDIA 5 RONA REA BELINDA BELINDA TRACHOMAT IS AMPLIFIED PROBE TQ ONDANSETR Q[address] ON 1 MG 5 RONA REA ORL NOT BELINDA BELINDA EXCEED 48 HR DOSE REG IADNA [address] ST[address] NEISSERIA 5 RADISSON RONA BELINDA BELINDA GONORRHOE AE AMPLIFIED PROBE TQ GONADOTRO [address] PIN 5 RONA RONA CHORIONIC BELINDA BELINDA QUANTITAT RONNIE COLLECTIO [address] . ST. N VENOUS 5 RONA RONA BLOOD BELINDA BELINDA VENIPUNCT URE IAADIADOO [address] [facility] TRICH[facility]ON BELINDA BELINDA VAGINALIS URNLS DIP [address] [facility] ST[facility]/TAB BELINDA BELINDA LET REAGENT [place] [address] [facility] UTERUS 5 RONA REA REAL TIME MED CTR MED CTR W/IMAGE DESPATCHING AND RECEIVING CLERK ST DESPATCHING AND RECEIVING [place] [address] [facility] 5 RONA REA UTERUS 14 MED CTR MED CTR WK DESPATCHING AND RECEIVING CLERK ST DESPATCHING AND RECEIVING CLERK ST TRANSABDL GESTAT COLLECTIO 19770 [facility] N VENOUS 5 RONA REA BLOOD MED CTR MED CTR VENIPUNCT DESPATCHING AND RECEIVING CLERK ST DESPATCHING AND RECEIVING CLERK ST URE GONADOTRO 46810 [facility] PIN 5 RONA REA CHORIONIC MED CTR MED CTR DESPATCHING AND RECEIVING CLERK ST DESPATCHING AND RECEIVING CLERK ST QUANTITAT RONNIE IADNA 17589 [facility] TRICHOMON 5 RONA REA MED CTR MED CTR VAGINALIS DESPATCHING AND RECEIVING CLERK ST DESPATCHING AND RECEIVING CLERK ST DIRECT PROBE TQ CUL BACT 64153 ST AEROBIC 5 RONA REA ADDL MED CTR MED CTR METHS DESPATCHING AND RECEIVING CLERK ST DESPATCHING AND RECEIVING CLERK ST DEFINITIV E EA ISOL CULTURE [id number] ST BACTERIAL 5 RONA REA MED CTR MED CTR QUANTTATI DESPATCHING AND RECEIVING CLERK ST DESPATCHING AND RECEIVING CLERK ST VE COLONY COUNT URINE IADNA 23228 [facility] GARDNEREL 5 RONA REA LA MED CTR MED CTR VAGINALIS DESPATCHING AND RECEIVING CLERK ST DESPATCHING AND RECEIVING CLERK ST DIRECT PROBE TQ SUSCEPTIB 27733 ST LTY STDY 5 RONA REA ANTIMICRB MED CTR MED CTR IAL DESPATCHING AND RECEIVING CLERK ST DESPATCHING AND RECEIVING CLERK ST MICRO/AGA R DILUTJ IADNA [address] CHLAMYDIA 5 RONA RONA MED CTR MED CTR TRACHOMAT DESPATCHING AND RECEIVING CLERK ST DESPATCHING AND RECEIVING CLERK ST IS AMPLIFIED PROBE TQ IADNA [address] JEREL 5 RONA RONA SPECIES MED CTR MED CTR DIRECT DESPATCHING AND RECEIVING CLERK ST DESPATCHING AND RECEIVING CLERK ST PROBE TQ IADNA [address] ST [address] NEISSERIA 5 RONA RONA MED CTR MED CTR GONORRHOE DESPATCHING AND RECEIVING CLERK ST DESPATCHING AND RECEIVING CLERK ST AE AMPLIFIED PROBE TQ URINE [address]62 ST STERNEBER 5 RONA G HECTOR TEST VISUAL PHYSICIAN COLOR S CMPRSN METHS SKIN TEST 36519 ST STERNEBER 5 RONA G HECTOR TUBERCULO SIS PHYSICIAN INTRADERM S AL IADNA [address] TRICHOMON 4 RONA RONA MED CTR MED CTR VAGINALIS DESPATCHING AND RECEIVING CLERK ST DESPATCHING AND RECEIVING CLERK ST DIRECT PROBE TQ IADNA [address] JEREL 4 RONA RONA SPECIES MED CTR MED CTR DIRECT DESPATCHING AND RECEIVING CLERK ST DESPATCHING AND RECEIVING CLERK ST PROBE TQ IADNA [address] GARDNEREL 4 RONA RONA LA MED CTR MED CTR VAGINALIS DESPATCHING AND RECEIVING CLERK ST DESPATCHING AND RECEIVING CLERK ST DIRECT PROBE TQ FRAMES V2020 CORAL MURRIETA HECTOR PURCHASES 4 1 VISN V2103 CORAL MURRIETA HECTOR PLANO 4 TO+/-4.00 D SPHER 0.12-2.00 D CYL EA SCRATCH V2760 [facility]OR MONCADA HECTOR RESISTANT 4 COATING PER LENS LENS V2784 [facility] HECTOR MONCADA HECTOR POLYCARBO 4 REMI OR EQUAL ANY INDEX PER LENS OPHTH 51209 VALLE VALLE MEDICAL 4 ISIDRO FELIX XM&EVAL COMPRHNSV ESTAB PT 1/> FITTING 34096 VALLE VALLE SPECTACLE 4 ISIDRO FELIX S XCPT APHAKIA MONOFOCAL 1 VISN V2104 CORAL MURRIETA HECTOR PLANO-+/- 4 4.00D SPHER 2.12-4.00 D CYL EA NEURAXIAL 04586 INDEPENDE BRIDGES LABOR 4 NT MANNY ANALG/ANE ANESTHESI S PLND OLOGIST VAGINAL DELIVERY VAGINAL 89288 ST CAREY DELIVERY 4 RONA ROBERSON W/POSTPAR PHYSICIAN [place] [address] [place] LEAL SURG 4 RONA ZABALA PATHOLOGY MED CTR GROSS&JOSE E ROSCOPIC EXAM OTHER [address] MANUALLY 4 RONA REA ASSISTED MED CTR MED CTR DELIVERY DESPATCHING AND RECEIVING CLERK ST DESPATCHING AND RECEIV[place] [address] OTHER 4 RONA REA CURRENT MED CTR MED CTR OBSTETRIC DESPATCHING AND RECEIVING CLERK ST DESPATCHING AND RECEIVING CLERK ST LACERATIO N OTHER [address] ARTIFICIA 4 RONA REA L RUPTURE MED CTR MED CTR OF DESPATCHING AND RECEIVING CLERK ST DESPATCHING AND RECEIVING CLERK ST MEMBRANES [address] NONSTRESS 4 RONA REA TEST PHYSICIAN PHYSICIAN S S CRYSTAL 35527 ST [facility] ID LIGHT 4 RONA CABRERA Y CARI PHYSICIAN TISS/ANY S FLUID 42789 ST [facility] NONSTRESS 4 RONA MAR TEST PHYSICIAN S [address] NONSTRESS 4 RONA RONA TEST MED CTR MED CTR DESPATCHING AND RECEIVING CLERK ST DESPATCHING AND RECEIVING CLERK ST IADNA [address] TRICHOMON 4 RONA HALEBETH MED CTR MED CTR VAGINALIS DESPATCHING AND RECEIVING CLERK ST DESPATCHING AND RECEIVING CLERK ST DIRECT PROBE TQ IADNA [address] GARDNEREL 4 RONA HALEBETH LA MED CTR MED CTR VAGINALIS DESPATCHING AND RECEIVING CLERK ST DESPATCHING AND RECEIVING CLERK ST DIRECT PROBE TQ IADNA [address] JEREL 4 RONA HALEBETH SPECIES MED CTR MED CTR DIRECT DESPATCHING AND RECEIVING CLERK ST DESPATCHING AND [place]ING [place] [address] ST URENA NONSTRESS 4 RONA ALL TEST PHYSICIAN S INITIAL 54436 ST URNEA OBSERVATI 4 RONA ALL ON CARE/DAY PHYSICIAN 30 S MINUTES URNLS DIP [address] 4 RONA RONA STICK/TAB MED CTR MED CTR LET DESPATCHING AND RECEIVING CLERK ST DESPATCHING AND RECEIVING CLERK ST REAGENT AUTO MICROSCOP Y [address] NONSTRESS 4 RONA RONA TEST MED CTR MED CTR DESPATCHING AND RECEIVING CLERK ST DESPATCHING AND RECEIVING CLERK ST IADNA [address] TRICHOMON 4 RONA REA MED CTR MED CTR VAGINALIS DESPATCHING AND RECEIVING CLERK ST DESPATCHING AND RECEIVING CLERK ST DIRECT PROBE TQ IADNA [address] NEISSERIA 4 RONA HALEBETH MED CTR MED CTR GONORRHOE DESPATCHING AND RECEIVING CLERK ST DESPATCHING AND RECEIVING CLERK ST AE AMPLIFIED PROBE TQ IADNA [address] JEREL 4 RONA HALEBETH SPECIES MED CTR MED CTR DIRECT DESPATCHING AND RECEIVING CLERK ST DESPATCHING AND RECEIVING CLERK ST PROBE TQ IADNA [address] CHLAMYDIA 4 RONA MERCADOTH MED CTR MED CTR TRACHOMAT DESPATCHING AND RECEIVING CLERK ST DESPATCHING AND RECEIVING CLERK ST IS AMPLIFIED PROBE TQ IADNA [address] GARDNEREL 4 RONA REA LA MED CTR MED CTR VAGINALIS DESPATCHING AND RECEIVING CLERK ST DESPATCHING AND RECEIVING CLERK ST DIRECT PROBE TQ FTL [address] FIBRONECT 4 RONA REA IN MED CTR MED CTR CERVICOVA DESPATCHING AND RECEIVING CLERK ST DESPATCHING AND RECEIVING CLERK ST G SECRETION S SEMI-KELECHI SBSQ [address] [facility] OBSERVATI 4 RONA SHEEHAN ON CARE/DAY PHYSICIAN 15 S MINUTES INJECTION J2790 [address] ST RHO D IG 4 RONA REA HUMAN MED CTR MED CTR FULL DOSE DESPATCHING AND RECEIVING CLERK ST DESPATCHING AND RECEIVING CLERK ST [address] JEREL 4 RONA REA SPECIES MED CTR MED CTR DIRECT DESPATCHING AND RECEIVING CLERK ST DESPATCHING AND RECE[place] [address] 4 RONA REA UTERUS 14 MED CTR MED CTR WK DESPATCHING AND RECEIVING CLERK ST DESPATCHING AND RECEIVING CLERK ST TRANSABDL / GESTAT VAGINAL [address] ST TER[facility] DELIVERY 2 RONA ROBERSON W/POSTPAR PHYSICIAN FERCHO CARE S [address] NONSTRESS 2 RONA REA TEST MED CTR MED CTR DESPATCHING AND RECEIVING CLERK ST DESPATCHING [place] [address] [facility] NONSTRESS 2 RONA SHEEHAN TEST PHYSICIAN S INITIAL 82657 [facility] IN[facility]IENT 2 MATERNAL DON CONSULT ME NEW/ESTAB PT 55 MIN Encounters Encounter Start End Date Code Location Performer Type Date HOSPITAL ST - OTHER 6 6 RONA MED CTR DESPATCHING AND RECEIVING CLERK [facility] ST. - 6 6 RONA OUTPATIEN [facility] EMERGENCY [address] ST 6 6 RONA DEPARTMEN MED CTR T VISIT DESPATCHING AND RECEIVING CLERK [facility] ST - 6 6 RONA OUTPATIEN MED CTR T [facility] ST. - 6 6 RONA OUTPATIEN [facility] - [facility] 6 RONA INPATIENT [facility] ST - 6 6 RONA OUTPATIEN MED CTR T [facility] OFFICE [address] [facility] CAREY OUTPATIEN 6 6 RONA ISIDRO T VISIT 15 [facility] - 6 6 RONA OUTPATIEN MED CTR T [facility] ST OFFICE [address] [facility] OUTPATIEN 6 6 RONA AGUILA T VISIT 15 PHYSICIAN [facility] ST - 6 6 RONA OUTPATIEN MED CTR T [facility] ST - 6 6 RONA OUTPATIEN MED CTR T [facility] ST OFFICE [address] ST URENA OUTPATIEN 6 6 RONA ALL T VISIT 15 PHYSICIAN [facility] ST - 6 6 RONA OUTPATIEN MED CTR T [facility] ST OFFICE [address] [facility] C[facility] OUTPATIEN 5 5 RONA ISIDRO T VISIT 15 PHYSICIAN [facility] ST - OTHER 5 5 RONA MED CTR [facility] ST OFFICE [address] [facility] C[facility] OUTPATIEN 5 5 RONA ISIDRO T VISIT 15 PHYSICIAN [facility] ST - OTHER 5 5 RONA MED CTR DESPATCHING AND RECEIVING CLERK [facility] ST - 5 5 RONA OUTPATIEN MED CTR T [facility] OFFICE [address] [facility] OUTPATIEN 5 5 RONA AGUILA T VISIT 15 PHYSICIAN MINUTES S OFFICE [address]195 [facility] OUTPATIEN 5 5 RONA AGUILA T VISIT 15 PHYSICIAN [address] [facility] [address] - 5 5 RONA OUTPATIEN MED CTR T [facility] OFFICE [address]16 [facility] RONA AGUILA T VISIT 15 PHYSICIAN [address] [facility] - 5 5 RONA OUTPATIEN [facility] ST - 5 5 RONA OUTPATIEN MED CTR T [facility] ST - 5 5 RONA OUTPATIEN MED CTR T [facility] OFFICE 78230 URENA OUTPATIEN 5 5 RONA ALL T VISIT 15 PHYSICIAN MINUTES [facility] ST - 5 5 RONA OUTPATIEN MED CTR T [facility] ST - 5 5 RONA OUTPATIEN MED CTR T [facility] [address] [facility] RONA AGUILA T VISIT 15 PHYSICIAN MINUTES S EMERGENCY 60065 ST 5 5 RONA DEPARTMEN MED CTR T VISIT DESPATCHING AND RECEIVING CLERK [facility] ST - 5 5 RONA OUTPATIEN MED CTR T [facility] OFFICE [address]484 [facility] RONA AGUILA T VISIT 15 PHYSICIAN MINUTES [facility] ST - 5 5 RONA OUTPATIEN MED CTR T [facility] [address] ST OUTPATIEN 5 5 RONA T VISIT MED CTR 15 DESPATCHING AND RECEIVING CLERK [facility] HOSP[facility] ST - 5 5 RONA OUTPATIEN MED CTR T DESPATCHING AND RECEIVING CLERK ST OFFICE [address] [facility] OUTPATIEN 5 5 RONA AGUILA T VISIT 15 PHYSIC[address] [facility] [address] - 5 5 RONA OUTPATIEN MED CTR T DESPATCHING AND RECEIVING CLERK ST OFFICE 96560 ST OUTPATIEN 5 5 RONA T VISIT MED CTR 25 DESPATCHING AND RECEIVING CLERK [facility] OFFICE [address] ST C[facility]Y OUTPATIEN 5 5 RONA ISIDRO T VISIT 15 PHYSICIAN MINUTES S EMERGENCY 89240 ST 5 5 RONA DEPARTMEN MED CTR T VISIT DESPATCHING AND RECEIVING CLERK [facility] SEVERITY [facility] ST - 5 5 RONA OUTPATIEN MED CTR T DESPATCHING AND RECEIVING CLERK ST OFFICE 57411 [facility] OUTPATIEN 5 5 RONA AGUILA T VISIT 15 PHYSICIAN [address] [facility] [address] - 5 5 RONA OUTPATIEN MED CTR T DESPATCHING AND RECEIVING CLERK EMERGENCY 53357 [facility] 5 5 EMERGENCY N JEZ DEPARTMEN T VISIT PHYSICIAN HIGH/URGE S [facility] ST. - 5 5 RONA OUTPATIEN [facility] EMERGENCY 19524 [facility] JR 5 5 EMERGENCY [place] DEPARTMEN T VISIT PHYSICIAN HIGH/URGE S NT SEVERITY OFFICE 40563 [facility] OUTPATIEN 5 5 RONA VJ T VISIT 15 PHYSIC[address] [facility] - 5 5 RONA OUTPATIEN MED CTR T DESPATCHING AND RECEIVING CLERK [facility] ST. - 5 5 RONA OUTPATIEN BEL[facility]DA T EMERGENCY 16022 ST. 5 5 RONA DEPARTTYRA BELINDA T VISIT MODERATE SEVERITY EMERGENCY 72699 LENIN HUERTAS 5 5 EMERGENCY DEPARTMEN T VISIT PHYSICIAN HIGH/URGE S NT SEVERITY EMERGENCY 26866 LENIN MEZA DEPT 5 5 EMERGENCY AMALIA VISIT HIGH PHYSICIAN SEVERITY& S [facility] ST. - 5 5 RONA OUTPATIEN [facility] 75941 ST. 5 5 RONA DEPARTMEN GRACE T VISIT HIGH/URGE NT SEVERITY HOSPITAL ST - 5 5 RONA OUTPATIEN MED CTR T [facility] ST - 5 5 RONA OUTPATIEN MED CTR T [facility] ST - 5 5 RONA OUTPATIEN MED CTR T [facility] OFFICE [address] [facility] ST[facility] OUTPATIEN 5 5 RONA G HECTOR T VISIT 15 PHYSICIAN MINUTES S OFFICE [address] [facility] OUTPATIEN 5 5 RONA G HECTOR T VISIT 15 PHYSICIAN MINUTES S EMERGENCY 49778 ST. 5 5 RONA DEPARTMEN BELINDA T VISIT LOW/MODER SEVERITY HOSPITAL ST. - 5 5 RONA OUTPATIEN [facility] T EMERGENCY 10939 LENIN TRIPATHI 5 5 EMERGENCY KARISHMA DEPARTMEN T VISIT PHYSICIAN HIGH/URGE S NT SEVERITY HOSPITAL ST - 4 4 RONA OUTPATIEN MED CTR T [facility] OFFICE [address]1357 ST HARTIG OUTPATIEN 4 4 RONA RUBINA T VISIT 15 PHYSIC[address] [facility] [address] - 4 4 RONA INPATIENT MED CTR [facility] ST OFFICE 66434 ST [facility] OUTPATIEN 4 4 RONA MAR T VISIT 15 PHYSIC[address] [facility] [address] - 4 4 RONA OUTPATIEN MED CTR T [facility] OFFICE [address] [facility] OUTPATIEN 4 4 RONA AGUILA T VISIT 15 PHYSICIAN MINUTES [facility] ST - 4 4 RONA OUTPATIEN MED CTR T [facility] ST - 4 4 RONA OUTPATIEN MED CTR T [facility] ST - 4 4 RONA OUTPATIEN MED CTR T [facility] ST - 4 4 RONA OUTPATIEN MED CTR T [facility] ST - 4 4 RONA OUTPATIEN MED CTR T [facility] ST - 4 4 RONA OUTPATIEN MED CTR T [facility] ST - 4 4 RONA OUTPATIEN MED CTR T [facility] OFFICE 36447 [facility] OUTPATIEN 4 4 RONA LIS T VISIT 15 PHYSICIAN MINUTES S OFFICE [address] [facility] OUT[facility]EN 4 4 RONA LIS T VISIT 15 PHYSICIAN MINUTES [facility] ST - 2 2 RONA OUTPATIEN MED CTR T [facility] OFFICE [address]64 ST OUTPATIEN 2 2 RONA T VISIT MED CTR [address] [facility]
--- OUTSIDE RECORDS SUMMARY | 2017-05-20 22:47 | External Medical Summary Rpt ---
Author Author IRENE Bermudez, [employer] Organization [employer] Address Unknown Phone Unavailable
--- OUTSIDE RECORDS SUMMARY | 2017-05-20 22:47 | External Medical Summary Rpt ---
Demographics Home Phone Preferred Language Lithuanian Marital Status Unknown Zoroastrianism Affiliation Unknown Race Unknown Ethnic Group Unknown Author Author , IRENE Organization [employer] Address Unknown Phone [email or web address] Name Relationship Address Phone JOAN, Next Of Kin Unknown Unavailable REED Immunization Name Date Rout CVX Reac Dose Comm Prov Is Faci e tion ent ider Refu lity Give sed n Rho( 11-3 Intr 999 Hist 1005 No 1005 D)-I 0-20 amus oric 00 00 G IV 16 cula al r Info rmat ion - Sour ce Unsp ecif ied Hep 11-0 Intr 43 999 Hist D202 No D202 B, 3-20 amus oric 94 94 adul 16 cula al t r Info rmat ion - Sour ce Unsp ecif ied Hep 07-0 Intr 43 999 Hist D202 No D202 B, 5-20 amus oric 94 94 adul 16 cula al t r Info rmat ion - Sour ce Unsp ecif ied Hep 04-2 Intr 43 999 Hist D202 No D202 B, 8-20 amus oric 94 94 adul 16 cula al t r Info rmat ion - Sour ce Unsp ecif ied Hep 04-2 Intr 52 999 Hist D202 No D202 A, 8-20 amus oric 94 94 adul 16 cula al t r Info rmat ion - Sour ce Unsp ecif ied
--- OUTSIDE RECORDS SUMMARY | 2017-05-20 22:47 | External Medical Summary Rpt ---
Demographics Home Phone Preferred Language Mohawk Marital Status Unknown Jainism Affiliation Unknown Race Unknown Ethnic Group Unknown Author Author , IRENE Organization [employer] Address Unknown Phone [email or web address] Support Name Relationship Address Phone JOAN, Next [...]
== END 2017-05-20 20:19 | disposition home or self-care (01) ==
LOC: ER 15:55
PROVIDERS: Emergency Medicine
DX: O20.0 Threatened abortion (principal); Z3A.01 Less than 8 weeks gestation of pregnancy
CPT/HCPCS: J2790

== ENCOUNTER → 2017-05-21 | Outpatient (CLI) | payer BC ==
[~2017-05-21] MED LIST: LATUDA40 MG PO; PRENATAL MULTI1 EAC5 PO
[2017-05-21 15:19] LABS: HEMOGLOBIN 13.8 g/dL (12.2-16.2); LYMPH # 2.6 K/mm3 (0.7-4.5)
[2017-05-21 16:52] LABS: AMPHETAMINES/METAMPHETAMINES NEGATIVE ng/mL (<1000)
[2017-05-21 17:21] LABS: ABO BLOOD TYPE A; RH BLOOD TYPE NEGATIVE
[2017-05-23 09:37] LABS: Rapid Plasma Reagin, Quant Non Reactive (NonRea<1:1); Rubella Antibodies, IgG 1.61 index (Immune >0.99)
[2017-05-23 10:38] LABS: HBsAg Screen Negative (Negative); HIV Screen 4th Generation wRfx Non Reactive (Non Reactive)
== END ==
LOC: LAB 14:47
PROVIDERS: Obstetrics & Gynecology
DX: O20.0 Threatened abortion (principal); Z36 Encounter for antenatal screening of mother; Z04.8 Encounter for examination and observation for other specified reasons; Z34.80 Encounter for supervision of other normal pregnancy, unspecified trimester
CPT/HCPCS: G0432